=== PATIENT | female | born 1935 | race Caucasian/White ===

== ENCOUNTER 2016-09-14 20:44 | Inpatient (IN) ==
[2016-09-14] MEDS ORDERED: *HR* OxyCODONE Immed Rel 5 MG TABLET PO PRN (23:43)
[2016-09-14] MEDS ORDERED: Naloxone 0.4 MG/ML INJ IVP PRN (23:43)
[2016-09-14] MEDS ORDERED: Acetaminophen 325 MG TABLET PO PRN (23:43)
[2016-09-14] MEDS ORDERED: Ondansetron 4 MG/2 ML VIAL IVP PRN (23:43)
[2016-09-14] MEDS ORDERED: *HR* Morphine 2 MG/ML SYRINGE IVP PRN (23:43)
[2016-09-14] MEDS ORDERED: 0.9 % Sodium Chloride 1,000 ML IVC SCH (23:45)
[2016-09-14] MEDS ORDERED: Insulin LISPRO 300 UNITS/3 ML VIAL SQ SCH (23:45)
[2016-09-14] MEDS ORDERED: Dextrose Gel 15 GM PO PRN ×2 (23:54)
[2016-09-14] MEDS ORDERED: D5% in Water 1,000 ML IVC PRN (23:54)
--- NOTE | 2016-09-15 00:04 | Internal Med History&Physical ---
Date of Encounter: 09/14/16 Time of Encounter: 23:45 Assessment and Plan (1) Frail elderly Current visit: Yes Status: Acute . (2) CVA (cerebral vascular accident) Current visit: Yes Status: Acute . 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 (4) Atrial fibrillation Current visit: Yes Status: Chronic . Qualifiers: Atrial fibrillation type: paroxysmal Qualified Code(s): I48.0 - Paroxysmal atrial fibrillation (5) Hyponatremia with decreased serum osmolality Current visit: Yes Status: Acute . (6) Toxic metabolic encephalopathy Current visit: Yes Status: Acute . (7) Nutritional deficiency disorder Current visit: Yes Status: Acute . Internal Medicine - H&P: HPI Chief complaint: ? Recurrent CVA symptoms Admitted From: Emergency Dept Plans for Post Hospital Care: Home History of present illness: Ms. 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 The patient is received as a hospital transfer from [facility]-inpatient. Admitted to [facility]-inpatient on 09/01/2016 for inpatient rehabilitation status post recent ischemic cerebrovascular accident. The patient carries a long history of multiple, old bi-hemispheric infarcts with encephalomalacia. The patient seemed to progress slowly predictably during her inpatient stay and tell the last 2-3 days prior to her transfer she became less anticipatory in the rehabilitation program. Seemed more easily fatigued and weak. Seemed more hyper irritable. Inattentive. Loss of appetite. Confusion/delirium. Pending of her most recent laboratory prior to transfer it appears that on 09/02/2016 a basic metabolic panel noted a sodium of 137 and an osmolality calculated at 283. Admission comprehensive metabolic panel here finds now a sodium of 121 and a osmolality calculated 261. Additional electrolyte deficiencies and vitamin deficiencies are also noted with the intake screening laboratory with this current admission. This suggests possibly an underlying progressive nutritional disorder as well as significant shift in patient's fluid and electrolyte balance. Pulmonary impression suggest rather than a recurring CVA superimposed the patient's likely multi-infarct, chronic encephalopathy, she has experienced a progressive toxic metabolic encephalopathy and delirium as a consequence of anabolic disorder. Rule out other competing causes for patient's behavioral disturbance will be investigated. She is at risk for further acute clinical decline and morbidity given her advanced age, frailty, clinical findings and comorbid conditions. Workup and treatments will proceed comprehensibly. The patient was visited and interviewed and examined. She presents mildly encephalopathic and delirious. She is a unreliable and poor current circumstances and events. Cumulative laboratory and radiographic data base will be considered and discussed. Pertinent ancillary medical records including ECW and PCI documentation when available was reviewed and considered. Given the patient's presenting concerns, past medical history, clinical findings and symptoms, she is admitted at this time will undergo further evaluation and disposition. Orders were written as per the computerized physician food order expediter system.......................................................................... .................... Consultative opinions will be sought as clinical circumstances justify. Pain management needs will be addressed. Laboratory+radiographic data base will be updated as appropriate. Studies include: Cultures of blood and urine and sputum, random urineassays, pt/inr, aptt, ddimer,cpk, prolactin, cardiac injury panel, BNP, metabolic and hematologic panel, magnesium, phosphorus, ionized calcium, thyroid panel ,lipid profile, A1c, C-peptide, CRP, sedimentation rate, respiratory infection profile , respiratory virus panel, cortisol, blood gas, B12, folate, iron studies, lactic acid, serologies, etc. Precautions: Aspiration, fall, seizure, delirium protocol/surveillance initiated. Orthostatic vital signs. Telemetry with continuous hemodynamic monitoring and pulse oximetry initiated. Empiric antibiotic coverage: pending diagnostic/culture data. Special studies: CT chest, MRI head/brain, carotid US, chest x-ray, telemetry, EKG, 2D echo. Bladder scan postvoid residual. Pulmonary toilet: Incentive spirometry. PRN aerosol bronchodilator, mucolytic, antitussive. PRN supplemental oxygen. Corticosteroid therapy PRN. CPAP/BiPAP supplemental oxygen delivery employed PRN. Aerosol Mucomyst therapy may be employed PRN. Fluid and electrolyte repletion efforts will proceed. Careful attention to fluid balance and renal recovery will be emphasized. Avoidance of nephrotoxic exposure and adverse drug drug interaction in the setting of impaired renal function will be monitored closely. Apparent, rapidly progressive hyponatremia to be addressed with diligent surveillance/ empiric protocols to include: 8258-0679 mLs total fluid (i.e., free water) restriction per 24hrs. Gentle rehydration therapy with normal saline initiated. Acute coronary syndrome protocol/surveillance initiated. Acute BEHAVIORAL INTERVENTION SPECIALIST injury protocol/surveillance initiated. DVT and PUD prophylaxis initiated: PPI therapy, intermittent pneumatic cuffs/ TEDs. Early ambulation will be encouraged. Chronic anticoagulation therapy with warfarin. Continue per pharmacy protocol/ surveillance. Goal INR 2-3. Immunization updates recommended. Influenza and pneumococcal vaccinations as part of ongoing preventative healthcare recommendations strongly recommended. Smoking cessation counseling addressed. It is currently unknown if patient is a smoker. This issue will be further investigated as circumstances permit. Advanced care directive discussion addressed. Patient does not declare any healthcare restrictions at this time as per available medical record reviews.. Cardiovascular risk appraisal and cardiovascular risk reduction efforts will be emphasized. Physical+occupational therapy consulted to evaluate patient's functional capacity and progressive mobility as her circumstances permit. Sliding scale insulin coverage, ADA dietary restraint and schedule an as-needed basis fingerstick glucose assessments were initiated. Nutrition/diabetes education counseling may be considered as circumstances justify. Outpatient medication schedules will be reviewed, confirmed and facilitated as appropriate. Reconciliation of home treatments including adjustments, substitutions and reintroduction into the treatment regimen will address necessary maintenance therapies for chronic pre-existing medical conditions. Plan of care has been reviewed and discussed in detail with the patient's caregivers. Questions addressed. Hospital course will be dependent upon clinical findings, treatment response and /or potential consultative interventions. Patient is at risk for further acute clinical decline-morbidity due to her advanced age/frailty, presenting chief complaints and comorbid conditions. Condition is serious. Prognosis is guarded. CODE STATUS is reported as full. Past Med Surg Social Fam HX - Past Medical History Source: old records reviewed Medical history: arthritis, atrial fibrillation, cardiomyopathy, CHF, CVA, diabetes, GERD, hyperlipidemia, hypertension, osteoporosis, peripheral artery disease, thyroid disease, TIA, other Psychiatric history: no psych history, other - Past Surgical History Surgical History: non-contributory, other - Social History Smoking Status: Never smoker Alcohol use: none, unknown Drug use: none, unknown Occupational status: unemployed, retired Activity Level: Independent ambulation, Mostly sedentary Recent Out of Country Travel Within the Last 8 Weeks: No Exposure or Possible Exposure to Illness During Travel: No Internal Medicine - H&P: Meds Aspirin [Ecotrin] 325 mg PO DAILY 09/01/16 [History] Bisacodyl [Woman's Laxative] 5 mg PO DAILY 09/01/16 [History] Carvedilol [Coreg] 6.25 mg PO BIDWM 09/01/16 [History] GlipiZIDE [Glipizide] 10 mg PO DAILY 09/01/16 [History] Insulin Glargine [Lantus] 20 units SQ 1630 09/01/16 [History] Levothyroxine [Synthroid] 0.1 mg PO DAILY 09/01/16 [History] Pravastatin Sodium [Pravachol] 40 mg PO HS 09/01/16 [History] Warfarin [Coumadin] 2.5 mg PO DAILY 09/01/16 [History] Allergies pcn Allergy (Unknown, Uncoded 09/01/16 13:14) Rash ROS unobtainable: due to mental status All Systems PM: A 10-system review of systems was performed and is negative for pertinent findings except as documented above in the HPI. Patient presents mildly encephalopathic. Delirious. Sitting for a degree of sundowning with restlessness. She is very limited historian of current circumstances and events. Details are collected from medical records, report by attending staff and family members. - Constitutional Constitutional: as per HPI - EENT Eyes: as per HPI Ears: as per HPI Nose, mouth and throat: as per HPI - Breasts Breasts: as per HPI - Cardiovascular Cardiovascular ROS IM: as per HPI - Respiratory Respiratory: as per HPI - Gastrointestinal Gastrointestinal: as per HPI - Genitourinary Genitourinary: as per HPI - Musculoskeletal Musculoskeletal ROS IM: as per HPI - Integumentary Integumentary IM: as per HPI - Neurological Neurological ROS: as per HPI - Endocrine Endocrine IM: as per HPI - Hematologic/Lymphatic Hematologic/Lymphatic: as per HPI - Allergic/Immunologic Allergic/Immunologic: as per HPI - Constitutional Vitals: Temp Pulse Resp BP Pulse Ox 98.3 F 85 20 175/105 100 09/14/16 23:07 09/14/16 23:07 09/14/16 23:07 09/14/16 23:07 09/14/16 23:07 Vital Signs Temp Pulse Resp BP Pulse Ox 09/14/16 23:07 98.3 F 85 20 175/105 100 Intake and Output 09/14/16 09/14/16 09/15/16 15:59 23:59 07:59 Other: Weight 65 kg Blood Glucose* 257 Vital Signs Temp Pulse Resp BP Pulse Ox 09/15/16 04:21 98.4 F 66 15 155/79 99 09/14/16 23:07 98.3 F 85 20 175/105 100 Intake and Output 09/14/16 09/14/16 09/15/16 15:59 23:59 07:59 Output Total 400 / 400 Balance -400 / -400 Output: Urine 400 / 400 Other: Weight 65 kg 65 kg Blood Glucose* 257 257 Patient Weight 09/15/16 23:59 Weight 65 kg General appearance: Present: cachectic, cooperative, A&O X 2, no acute distress , answers questions appropriately - Head Head exam: Present: atraumatic, normocephalic - Eye Eye exam: Present: EOMI, PERRL, conjuntiva pink, sclera anicteric Pupils: Present: normal accommodation, PERRL - ENT ENT exam: Present: mucous membranes moist, normal external ear exam, normal oropharynx - Neck Neck exam general surgery: Present: full ROM, supple, trachea midline. Absent: lymphadenopathy, nuchal rigidity - Respiratory Respiratory exam: Present: decreased breath sounds, CTAB. Absent: accessory muscle use, rales, rhonchi, wheezes - Cardiovascular Cardiovascular exam: Present: distant heart sounds, RRR, +S1, +S2. Absent: diastolic murmur, gallop, rubs, systolic murmur - GI/Abdominal GI/Abdominal exam: Present: normal bowel sounds, soft, no peritoneal signs. Absent: distended, tenderness - Extremities Exam Extremities exam: Present: full ROM, warm, radial pulses palpable and symetrical. Absent: calf tenderness, cyanotic, pedal edema - Neurological Exam Neurological exam: Present: alert, altered, CN II-XII intact, oriented X3, no focal deficits. Absent: pronater drift, facial droop, speech deficit - Expanded Neurological Exam Neurological exam expanded: Present: inattentive, protecting the airway. Absent : ataxia, expressive aphasia, receptive aphasia, tremor Patient oriented to: Present: person, place. Absent: time Speech: Present: garbled Coma Scale Eye Opening: To Voice Coma Scale Motor Response: Obeys Commands Coma Scale Verbal Response: Confused Coma Scale Total: 13 - Psychiatric Psychiatric exam: Present: depressed, normal affect - Skin Skin exam: Present: dry, intact, pallor, warm. Absent: petechiae, rash, urticaria, vesicles Internal Med - H&P Results - Labs CBC & Chem 7: 09/15/16 00:27 09/15/16 00:27 Labs: Short CBC 09/15/16 Range/Units 00:27 WBC 9.8 (4.3-11.1) K/mcL Hgb 12.1 (11.5-15.4) g/dL Hct 34.0 L (35.3-44.9) % Plt Count 344 (140-400) K/mcL Neutrophils # 8.1 (1.6-8.9) K/mcL BMP 09/15/16 Range/Units 00:27 Sodium 121 L (136-145) mEq/L Potassium 2.6 L (3.5-4.5) mEq/L Chloride 82 L (98-109) mEq/L Carbon Dioxide 28 (19-29) mEq/L BUN 17 (7-20) mg/dL Creatinine 0.80 (0.57-1.11) mg/dL Glucose 227 H (70-99) mg/dL Calcium 8.9 (8.6-10.8) mg/dL Cardiac Enzymes 09/15/16 Range/Units 00:27 Troponin I 0.03 (0-0.03) ng/mL Liver Function 09/15/16 Range/Units 00:27 Total Bilirubin 1.4 H (0.2-1.2) mg/dL AST 40 H (5-34) Units/L ALT 59 H (0-55) Units/L Alkaline Phosphatase 82 (38-126) Units/L Albumin 3.6 (3.5-5.0) g/dL Urine 09/15/16 Range/Units 00:37 Urine Color Yellow (Yellow) Urine Clarity Clear (Clear) Urine pH 6.0 (5.0-8.0) pH Units Ur Specific Ross 1.014 (1.010-1.025) Urine Protein 30 H (Neg-Trace) mg/dL Urine Glucose (UA) 250 H (Normal) mg/dL Abnormal lab results Hct 34.0 % (35.3-44.9) L 09/15/16 00: MCV 79.6 fL (83.0-100.0) L 09/15/16: MCHC 35.6 g/dL (31.6-35.5) H 09/15/16: ESR 44 mm/hr (0-15) H 09/15/16: PT 34.6 Seconds (9.4-12.1) H 09/15/16: APTT 48.9 Seconds (26.0-36.0) H 09/15/16: VBG pH 7.53 pH Units (7.32-7.42) H 09/15/16: VBG pCO2 36 mmHg (41-51) L 09/15/16: VBG pO2 141 mmHg (25-40) H 09/15/16 00: VBG HCO3 30.1 mEq/L (21-27) H 09/15/16: Sodium 121 mEq/L (136-145) L 09/15/16: Potassium 2.6 mEq/L (3.5-4.5) L 09/15/16: Chloride 82 mEq/L (98-109) L 09/15/16: Glucose 227 mg/dL (70-99) H 09/15/16 00: Calculated Osmolality 261 (280-300) L 09/15/16: Magnesium 1.3 mg/dL (1.6-2.6) L 09/15/16: Total Bilirubin 1.4 mg/dL (0.2-1.2) H 09/15/16: AST 40 Units/L (5-34) H 09/15/16: ALT 59 Units/L (0-55) H 09/15/16: Globulin 3.7 g/dL (2.4-3.5) H 09/15/16 00:27 Albumin/Globulin Ratio 1.0 (1.1-2.2) L 09/15/16 00:27 Folate 6.1 ng/mL (7.0-31.4) L 09/15/16 00:27 TSH 0.178 mcIU/mL (0.350-4.840) L 09/15/16 00:27 Urine Protein 30 mg/dL (Neg-Trace) H 09/15/16 00:37 Urine Glucose (UA) 250 mg/dL (Normal) H 09/15/16 00:37 Urine Blood Trace (Negative) H 09/15/16 00:37 Laboratory Results WBC 9.8 K/mcL (4.3-11.1) 09/15/16 00: RBC 4.27 M/mcL (3.82-4.97) 09/15/16 00: Hgb 12.1 g/dL (11.5-15.4) 09/15/16 00: Hct 34.0 % (35.3-44.9) L 09/15/16 00: MCV 79.6 fL (83.0-100.0) L 09/15/16 00:27 MCH 28.3 pg (28.0-33.3) 09/15/16 00: MCHC 35.6 g/dL (31.6-35.5) H 09/15/16 00:27 RDW 13.0 % (11.5-14.5) 09/15/16 00:27 Plt Count 344 K/mcL (140-400) 09/15/16 00: MPV 9.7 fL (9.4-12.4) 09/15/16 00:27 Immature Gran % 0.6 % (0-4) 09/15/16 00:27 Seg Neutrophils % 82.6 % 09/15/16 00:27 Lymphocytes % 9.3 % 09/15/16 00:27 Monocytes % 7.5 % 09/15/16 00: Eosinophils % 0.0 % 09/15/16 00: Basophils % 0.0 % 09/15/16 00:27 Neutrophils # 8.1 K/mcL (1.6-8.9) 09/15/16 00: Lymphocytes # 0.9 K/mcL (0.6-4.6) 09/15/16 00: Monocytes # 0.7 K/mcL (0.0-1.3) 09/15/16 00: Eosinophils # 0.0 K/mcL (0.0-0.6) 09/15/16: Basophils # 0.0 K/mcL (0.0-0.2) 09/15/16 00: ESR 44 mm/hr (0-15) H 09/15/16: PT 34.6 Seconds (9.4-12.1) H 09/15/16 00: INR 3.1 09/15/16: APTT 48.9 Seconds (26.0-36.0) H 09/15/16: VBG pH 7.53 pH Units (7.32-7.42) H 09/15/16: VBG pCO2 36 mmHg (41-51) L 09/15/16: VBG pO2 141 mmHg (25-40) H 09/15/16: VBG HCO3 30.1 mEq/L (21-27) H 09/15/16: Sodium 121 mEq/L (136-145) L 09/15/16: Potassium 2.6 mEq/L (3.5-4.5) L 09/15/16: Chloride 82 mEq/L (98-109) L 09/15/16: Carbon Dioxide 28 mEq/L (19-29) 09/15/16 00: BUN 17 mg/dL (7-20) 09/15/16: Creatinine 0.80 mg/dL (0.57-1.11) 09/15/16 00: Est GFR ( Amer) > 60 (> 60) 09/15/16 00: Est GFR (Non-Af Amer) > 60 (> 60) 09/15/16: BUN/Creatinine Ratio 21 (6-26) 09/15/16: Glucose 227 mg/dL (70-99) H 09/15/16 00: Calculated Osmolality 261 (280-300) L 09/15/16: Lactic Acid 1.1 mmol/L (0.5-2.2) 09/15/16: Calcium 8.9 mg/dL (8.6-10.8) 09/15/16 00: Phosphorus 2.9 mg/dL (2.3-4.7) 09/15/16: Magnesium 1.3 mg/dL (1.6-2.6) L 09/15/16: Total Bilirubin 1.4 mg/dL (0.2-1.2) H 09/15/16: AST 40 Units/L (5-34) H 09/15/16: ALT 59 Units/L (0-55) H 09/15/16: Alkaline Phosphatase 82 Units/L (38-126) 09/15/16: Lactate Dehydrogenase 278 Units/L (159-327) 09/15/16: Creatine Kinase 49 Units/L (29-168) 09/15/16: Troponin I 0.03 ng/mL (0-0.03) 09/15/16: C-Reactive Protein 1 mg/L (Less than 5) 09/15/16: Serum Total Protein 7.3 g/dL (6.0-8.3) 09/15/16: Albumin 3.6 g/dL (3.5-5.0) 09/15/16: Globulin 3.7 g/dL (2.4-3.5) H 09/15/16: Albumin/Globulin Ratio 1.0 (1.1-2.2) L 09/15/16: Triglycerides 73 mg/dL (< 150) 09/15/16: Cholesterol 154 mg/dL (< 200) 09/15/16: LDL Cholesterol, Calc 81 mg/dL (0-99) 09/15/16: VLDL Cholesterol, Calc 15 mg/dL (< 31) 09/15/16: HDL Cholesterol 58 mg/dL (40-59) 09/15/16: Cholesterol/HDL Ratio 2.7 (0-4.9) 09/15/16: Vitamin B12 344 pg/mL (213-816) 09/15/16: Folate 6.1 ng/mL (7.0-31.4) L 09/15/16: TSH 0.178 mcIU/mL (0.350-4.840) L 09/15/16 00: Free T4 1.35 ng/dl (0.70-1.48) 09/15/16 00: Free T3 1.79 pg/mL (1.71-3.71) 09/15/16 00: Prolactin 11.45 ng/mL (5.18-26.53) 09/15/16 00: Urine Color Yellow (Yellow) 09/15/16 00: Urine Clarity Clear (Clear) 09/15/16 00: Urine pH 6.0 pH Units (5.0-8.0) 09/15/16 00: Ur Specific Ross 1.014 (1.010-1.025) 09/15/16 00: Urine Protein 30 mg/dL (Neg-Trace) H 09/15/16 00: Urine Glucose (UA) 250 mg/dL (Normal) H 09/15/16 00: Urine Ketones Negative mg/dL (Negative) 09/15/16 00: Urine Blood Trace (Negative) H 09/15/16 00: Urine Nitrite Negative (Negative) 09/15/16 00: Urine Bilirubin Negative (Negative) 09/15/16 00: Urine Urobilinogen Normal mg/dL (Normal) 09/15/16 00: Ur Leukocyte Esterase Negative (Negative) 09/15/16 00:37 Urine Microscopic RBC 0-3 per hpf (0-3) 09/15/16 00:37 Urine Microscopic WBC 0-3 per hpf (0-3) 09/15/16 00:37 Ur Squamous Epith Cells Few per lpf (None-Few) 09/15/16 00: Urine Bacteria None Seen per hpf (None-Few) 09/15/16 00: Hyaline Casts None Seen per lpf (None-Few) 09/15/16 00:37
[2016-09-15 00:35] LABS: Hemoglobin 12.1 g/dL (11.5-15.4); Immature Granulocytes % 0.6 % (0-4); Lymphocytes # 0.9 K/mcL (0.6-4.6); Lymphocytes % 9.3 %; Mean Corpuscular HGB Conc 35.6 g/dL (31.6-35.5); Mean Corpuscular Hemoglobin 28.3 pg (28.0-33.3); Mean Corpuscular Volume 79.6 fL (83.0-100.0); Mean Platelet Volume 9.7 fL (9.4-12.4); Monocytes # 0.7 K/mcL (0.0-1.3); Monocytes % 7.5 %; Neutrophils # 8.1 K/mcL (1.6-8.9); Platelet Count 344 K/mcL (140-400); Red Blood Count 4.27 M/mcL (3.82-4.97); Segmented Neutrophils % 82.6 %
[2016-09-15 00:41] LABS: INR 3.1; Prothrombin Time 34.6 Seconds (9.4-12.1)
[2016-09-15 00:44] LABS: Activated Partial Thrombo Time 48.9 Seconds (26.0-36.0)
[2016-09-15 00:46] LABS: Bilirubin,Urine Negative (Negative); Blood,Urine Trace (Negative); Clarity,Urine Clear (Clear); Color,Urine Yellow (Yellow); Glucose,Urine (UA) 250 mg/dL (Normal); Ketones,Urine Negative (Negative); Leukocyte Esterase,Urine Negative (Negative); Nitrite,Urine Negative (Negative); Protein,Urine 30 mg/dL (Neg-Trace); Specific Gravity,Urine 1.014 (1.010-1.025); Urobilinogen,Urine Normal (Normal)
[2016-09-15 00:46] LABS: VBG HCO3 30.1 mEq/L (21-27); VBG PH 7.53 pH Units (7.32-7.42)
[2016-09-15 00:49] LABS: Bacteria,Urine None Seen per hpf (None-Few); Hyaline Casts,Urine None Seen per lpf (None-Few); RBC,Urine 0-3 per hpf (0-3); Squamous Epithelial Cell,Urine Few per lpf (None-Few); WBC,Urine 0-3 per hpf (0-3)
[2016-09-15 00:50] LABS: Alanine Aminotransferase 59 Units/L (0-55); Albumin 3.6 g/dL (3.5-5.0); Alkaline Phosphatase 82 Units/L (38-126); Aspartate Amino Transferase 40 Units/L (5-34); BUN/Creatinine Ratio 21 (6-26); Bilirubin,Total 1.4 mg/dL (0.2-1.2); Blood Urea Nitrogen 17 mg/dL (7-20); Calcium 8.9 mg/dL (8.6-10.8); Carbon Dioxide 28 mEq/L (19-29); Chloride 82 mEq/L (98-109); Chol/HDL Ratio 2.7 (0-4.9); Globulin 3.7 g/dL (2.4-3.5); Glucose 227 mg/dL (70-99); Magnesium 1.3 mg/dL (1.6-2.6); Osmolality,Calculated 261 (280-300); Phosphorous 2.9 mg/dL (2.3-4.7); Potassium 2.6 mEq/L (3.5-4.5); Sodium 121 mEq/L (136-145); Total Protein 7.3 g/dL (6.0-8.3); eGFR For African Americans > 60 (> 60); eGFR For Non-African Americans > 60 (> 60)
[2016-09-15 01:12] LABS: Thyroid Stimulating Hormone 0.178 mcIU/mL (0.350-4.840); Triiodothyronine (T3) Free 1.79 pg/mL (1.71-3.71)
[2016-09-15 01:28] LABS: Prolactin 11.45 ng/mL (5.18-26.53)
[2016-09-15 01:34] LABS: Folate 6.1 ng/mL (7.0-31.4)
[2016-09-15] MEDS ORDERED: Magnesium Sulfate 2 GM in D5% in Water 100 ML IVPB ONE (01:36)
[2016-09-15] MEDS ORDERED: Potassium Chloride 40 MEQ, Lidocaine 1% 2 ML in D5% in Water 500 ML IVPB ONE (01:36)
[2016-09-15] MEDS ORDERED: Potassium Chloride Elixir 20 MEQ/15 ML UDC PO ONE (01:38)
[2016-09-15] MEDS ORDERED: *HR* LORazepam 2 MG/ML VIAL IVP PRN (05:46)
[2016-09-15] MEDS ORDERED: 0.9 % Sodium Chloride 1,000 ML IVC SCH (05:52)
[2016-09-15] MEDS ORDERED: 0.9 % Sodium Chloride 250 ML IVC STA (05:52)
[2016-09-15 06:19] LABS: % Iron Saturation 10 % (15-50); Iron 40 mcg/dL (50-170); Transferrin 285 mg/dL (180-382)
[2016-09-15] MEDS: Insulin LISPRO 300 UNITS/3 ML VIAL SQ SCH ×5 (07:50→23:36)
[2016-09-15] MEDS: Aspirin Enteric Coated 325 MG Tablet PO SCH (07:51)
[2016-09-15] MEDS: Folic Acid 1 MG TABLET PO SCH (07:51)
[2016-09-15] MEDS: Thiamine (B-1) 100 MG TABLET PO SCH (07:52)
[2016-09-15] MEDS: Vitamin B Complex/Vit C/Vit E 1 EACH TABLET PO SCH (07:52)
[2016-09-15] MEDS ORDERED: Lisinopril 20 MG TABLET PO ONE (12:00)
[2016-09-15] MEDS ORDERED: *HR* FentaNYL (PF) 100 MCG/2 ML VIAL ONE (13:54)
--- NOTE | 2016-09-15 14:56 | ECHO - Doppler Report ---
Echo with Saline Contrast Name: Gaye Garcia Date of Study: 09/15/2016 Date: 1935 Ht: 64.0 in Medical Record#: [id number] Age: 81 Wt: 143.0 lb Gender: Female BSA: 1.7 Order #: [id number] Location: [facility] Room #: [id number] Reading Physician: Juve Byers MD, [facility] Divinity Teacher: Zenaida Yang RVT, [facility] Ordering Physician: Alejandro Soto MD Primary Physician: Madeline Ballard MD Indications: CVA, AMS Impressions: Normal LV systolic function, LVEF 55-60%. Mild concentric left ventricular hypertrophy. Indeterminate diastolic function due to atrial fibrillation. Normal right ventricular size and function. Mildly dilated left atrium. Mildly dilated right atrium. No evidence of intracardiac shunting with agitated saline contrast. Moderately calcified mitral valve annulus and subvalvular apparatus. Mildly thickened mitral valve leaflets. There is restricted motion of the posterior mitral valve leaflet. Moderate-severe mitral regurgitation. Mild aortic stenosis. Mild-moderate aortic regurgitation. Moderate tricuspid regurgitation. Severe pulmonary hypertension. Estimated RVSP = 60 mmHg. Left Ventricular Wall Motion: Rest Echo Findings All wall segments showed normal motion. Findings: Study Quality * Technically sub-optimal due to poor parasternal windows. ECG Findings * Atrial fibrillation. Left Ventricle * Normal LV systolic function, LVEF 55-60%. * Normal LV chamber size. * Mild concentric left ventricular hypertrophy. * Indeterminate diastolic function due to atrial fibrillation. Right Ventricle * Normal right ventricular size and function. Left Atrium * Mildly dilated left atrium. Right Atrium * Mildly dilated right atrium. Interatrial Septum * No evidence of intracardiac shunting with agitated saline contrast. Aorta * Normally sized aortic root. Pericardium * There is no pericardial effusion present. IVC * Normal IVC dimensions and inspiratory collapse. Aortic Valve * Aortic valve not well visualized. * Mild aortic stenosis. * Mild-moderate aortic regurgitation. Mitral Valve * Moderately calcified mitral valve annulus and subvalvular apparatus. Mildly thickened mitral valve leaflets. * There is restricted motion of the posterior mitral valve leaflet. * No mitral stenosis. * Moderate-severe mitral regurgitation. Tricuspid Valve * Normal tricuspid valve structure. * No tricuspid stenosis. * Moderate tricuspid regurgitation. * Severe pulmonary hypertension. Estimated RVSP = 60 mmHg. Pulmonic Valve * Pulmonic valve not well visualized. * No pulmonic stenosis. * Trace pulmonic regurgitation. History Hypertension Diabetes Hypercholesteremia Congestive Heart Failure Contrast: Agitated saline 20 ml. Measurements: BP: 155/ 79 2D Normal Values RVIDd: 2.70 cm IVSd: 1.30 cm 0.6 - 1.0 cm LVIDd: 3.50 cm 3.7 - 5.6 cm LVPWd: 1.30 cm 0.6 - 1.1 cm LVIDs: 2.60 cm 1.5 - 3.6 cm AO: 2.90 cm < 4.0 cm %FS: 25.70 cm >25 % LVOT Diam: 2.00 cm LA volume: 58 Aortic Valve Peak Raymundo:2.15 m/sec Peak Grad:18.00 mmHg Mean Grad:9.00 mmHg Tricuspid Valve TV Regurg Peak Grad: 57.00mmHg TV Regurg Peak Raymundo: 3.78m/sec Updated by Juve Byers MD, [facility] on 09/15/2016 2:47:06 PM electronically signed on 09/15/2016 2:49:23 PM with status of Final Wall Motion Miranda: 1=Normal, 2=Hypokinesis, 3=Akinesis, 4=Dyskinesis, 5=Aneurysmal, 6=Hyperkinetic, X=Not Visualized (Blank)=Missing
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
--- NOTE | 2016-09-15 15:51 | Pulmonology Consult Note ---
Date of Encounter: 09/15/16 Time of Encounter: 15:49 Assessment and Plan (1) Acute respiratory failure with hypoxia Current Visit: Yes Status: Acute Acute respiratory failure with hypoxia in this individual with recent stroke and altered declining mental status may very well be related to aspiration event. Respiratory failure may also be manifestation of cardiac dysfunction in this elderly individual with atrial fibrillation and multi-valvular dysfunction. Nonetheless, the patient will be maintained on ventilatory support. Cultures of the sputum will be obtained. An echocardiogram is pending for further cardiac evaluation. DVT and ulcer prophylaxis will be provided to the patient. Sedation in order to facilitate mechanical ventilation and minimize ventilator dyssynchrony will also be provided. Code(s): J96.01 - Acute respiratory failure with hypoxia SNOMED Code(s): 48785263, 226504847 History of Present Illness Consult date: 09/15/16 Chief complaint: Acute respiratory failure with hypoxia History of present illness: 81-year-old female recent stroke and multiple other comorbidities as outlined in the admission H&P. The patient developed a precipitous decline of her respiratory status while undergoing care on monitored floor. According to nursing staff, this seemingly occurred during the family's attempt to force feed this patient. Of note, this individual has had a extensive prior recent stroke was admitted with altered mental status. I was called to the floor to assist with intubation, please see my procedure note. I am unable to obtain a review of systems from the patient light of her clinical status. Past Med Surg Social Fam HX - Past Medical History Medical history: arthritis, atrial fibrillation, cardiomyopathy, CHF, CVA, diabetes, GERD, hyperlipidemia, hypertension, osteoporosis, peripheral artery disease, thyroid disease, TIA, other Psychiatric history: no psych history, other - Past Surgical History Surgical History: non-contributory, other - Social History Smoking Status: Never smoker Alcohol use: none, unknown Drug use: none, unknown Medications and Allergies Aspirin [Ecotrin] 325 mg PO DAILY 09/01/16 [History] Bisacodyl [Woman's Laxative] 5 mg PO DAILY 09/01/16 [History] Carvedilol [Coreg] 6.25 mg PO BID 09/01/16 [History] GlipiZIDE [Glipizide] 10 mg PO DAILY 09/01/16 [History] Insulin Glargine [Lantus] 32 units SQ DAILY 09/01/16 [History] Pravastatin Sodium [Pravachol] 40 mg PO HS 09/01/16 [History] Warfarin [Coumadin] 2.5 mg PO DAILY 09/01/16 [History] Amlodipine Besylate [Amlodipine Besylate] 10 mg PO DAILY 09/15/16 [History] Furosemide [Lasix] 20 mg PO AD PRN 09/15/16 [History] Insulin ASPART [Novolog Flexpen] 2 - 8 unit SQ TIDWM 09/15/16 [History] Levothyroxine [Synthroid] 100 mcg PO DAILY 09/15/16 [History] Allergies Penicillins Allergy (Verified 09/15/16 12:22) Rash ROS unobtainable: due to endotracheal tube All Systems: A 10-system review of systems was performed and is negative for pertinent findings except as documented above in the HPI. Physical Examination Vital Signs: Vital Signs, Last 4 Hours Temp Pulse Resp BP Pulse Ox 09/15/16 15:09 142 28 209/108 90 09/15/16 15:00 81 12 137/72 100 09/15/16 14:45 12 155/65 100 09/15/16 14:30 93.5 F L 81 12 147/93 100 General appearance: other (Elderly female sedated vomitus noted within the oral pharynx) Eyes: nonicteric ENT: oropharynx moist, other (Vomitus and blood within the oropharynx poor dental repair) Neck: JVD Effort: mildly labored Inspection: kyphosis Auscultation: bilateral: diminished breath sounds (Coarse breath sounds bilaterally) Cardiovascular: irregular rhythm, murmur noted (Systolic murmur over the base of the heart and aortic region) Gastrointestinal: normoactive bowel sounds, absent bowel sounds, non-distended Extremities: no cyanosis, edema (Mild edema intact pulses warm extremities) Musculoskeletal: no deformities (Osteoarthritic deformities of hands and knees) unable to assess due to mental status Ventilator Settings Ventilator Settings: Ventilator Settings, Last 8 Hours Ventilator Mode A/C Ventilator Mode A/C Ventilator Mode A/C Ventilator Tidal Volume 500 Setting Ventilator Tidal Volume 500 Setting Ventilator Tidal Volume 500 Setting Ventilator Respiratory Rate 12 Setting Ventilator Respiratory Rate 12 Setting Ventilator Respiratory Rate 12 Setting Actual Respiratory Rate 12 Actual Respiratory Rate 12 Actual Respiratory Rate 12 Positive End Expiratory 5 Pressure Positive End Expiratory 5 Pressure Positive End Expiratory 5 Pressure Peak Inspiratory Airway 26 Pressure Peak Inspiratory Airway 26 Pressure Peak Inspiratory Airway 24 Pressure Results - Laboratory Findings CBC and BMP: 09/15/16 00:27 09/15/16 00:27 PT/INR, D-dimer PT 34.6 Seconds (9.4-12.1) H 09/15/16 00:27 Abnormal lab findings: Abnormal lab results Hct 34.0 % (35.3-44.9) L 09/15/16 00:27 MCV 79.6 fL (83.0-100.0) L 09/15/16 00: MCHC 35.6 g/dL (31.6-35.5) H 09/15/16 00: ESR 44 mm/hr (0-15) H 09/15/16 00: PT 34.6 Seconds (9.4-12.1) H 09/15/16 00: APTT 48.9 Seconds (26.0-36.0) H 09/15/16 00: VBG pH 7.53 pH Units (7.32-7.42) H 09/15/16 00: VBG pCO2 36 mmHg (41-51) L 09/15/16 00: VBG pO2 141 mmHg (25-40) H 09/15/16 00:27 VBG HCO3 30.1 mEq/L (21-27) H 09/15/16 00:27 Sodium 121 mEq/L (136-145) L 09/15/16 00:27 Potassium 2.6 mEq/L (3.5-4.5) L 09/15/16 00: Chloride 82 mEq/L (98-109) L 09/15/16 00:27 Glucose 227 mg/dL (70-99) H 09/15/16 00:27 POC Glucose 206 (58-89) H 09/15/16 11:59 Serum Osmolality 261 mOsm/kg (280-300) L 09/15/16 06:03 Calculated Osmolality 261 (280-300) L 09/15/16 00:27 Magnesium 1.3 mg/dL (1.6-2.6) L 09/15/16 00:27 Iron 40 mcg/dL (50-170) L 09/15/16 05:56 % Saturation 10 % (15-50) L 09/15/16 05:56 Total Bilirubin 1.4 mg/dL (0.2-1.2) H 09/15/16 00:27 AST 40 Units/L (5-34) H 09/15/16 00:27 ALT 59 Units/L (0-55) H 09/15/16 00:27 Globulin 3.7 g/dL (2.4-3.5) H 09/15/16 00:27 Albumin/Globulin Ratio 1.0 (1.1-2.2) L 09/15/16 00:27 Folate 6.1 ng/mL (7.0-31.4) L 09/15/16 00:27 TSH 0.178 mcIU/mL (0.350-4.840) L 09/15/16 00:27 Urine Protein 30 mg/dL (Neg-Trace) H 09/15/16 00:37 Urine Glucose (UA) 250 mg/dL (Normal) H 09/15/16 00:37 Urine Blood Trace (Negative) H 09/15/16 00:37 - Clinical Findings Intake & Output: Intake & Output 09/14/16 09/15/16 09/15/16 23:59 07:59 15:59 Intake Total 240 / 240 Output Total 400 / 400 0 / 0 Balance -400 / -400 240 / 240 Weight 65 kg 65 kg Consult Discharge Plan - Plan Referrals: Madeline Ballard MD [Primary Care Provider] -
--- NOTE | 2016-09-15 16:06 | Event Note ---
<Mustapha Romero - Last Filed: 09/15/16 15:58> Date of Encounter: 09/15/16 Time of Encounter: 15:58 Rapid response was called at 1:44 PM. I arrived to the room shortly thereafter. The patient was in obvious respiratory distress. She had scaphoiding of the abdomen. She had accessory muscle use and was confused pulling off the venti mask. Additionally the patient had sinus tachycardia on the monitor with rates of 130s to 140s. Blood pressure reading at this time was quite high with a Systolic blood pressure of 206. We placed the patient on 100% O2 with a non rebreather mask. She had very course lungs sounds bilaterally with very poor airflow. Trachea was midline. We decided that it would be best to intubate her in the room as there was concern for her developing cardiac arrest from respiratory failure. We bagged the patient and were able to bring her O2 saturation up to 100%. Her Heart rate also slowed considerably to 100-110s. we proceed with intubation. Please see procedure note for details. Patient was transferred to the ICU and placed on a ventilator. Family was updated. we have consulted the Critical care team. given her exam finding I think It is highly suspicious for aspiration. May also consider flash pulmonary edema. A post intubation CXR has been ordered and is pending. We apprciate Dr. Bob Assistance with this patient. <Rome Domínguez - Last Filed: 09/15/16 17:47> Date of Encounter: 09/15/16 I examined this patient and my medical decision-making was reviewed with the DIRECTOR OF RESPIRATORY THERAPY/PA/Advanced Practice Nurse/Resident Physician. I agree with the documented findings, disposition and treatment plan as described except to the extent set forth below.
--- NOTE | 2016-09-15 16:17 | Event Note ---
<Mustapha Romero - Last Filed: 09/15/16 16:08> Date of Encounter: 09/15/16 Time of Encounter: 13:30 Procedure: Endotracheal intubation Date: 09/15/2016 Time: 1:30 PM Outboard Technician: Mustapha Romero D.O. Attending: Rome Blanco D.O. Indication: Acute respiratory failure The patient was placed in supine position with head of the bed roughly at 30 degrees. All equipment was checked and operational before beginning the procedure. Suction was readily available at bedside. Sedation was obtained using 5 mg of Versed, 30 g of fentanyl, 20 mg of etomidate was also later used during Francis Montes De Oca's attempt) . Patient was not paralyzed. The patient was easily ventilated using an Ambu bag. We used a 2 person technique. We were able to obtain 100% O2 saturation. The MAC3 glydescope blade was inserted by myself. The patient had a very difficult anatomy. The vocal cords were quite anterior. The best view that I could obtain during the procedure was a grade 2 view. I Was not able to pass the endotracheal tube through the cords as they were impeded by the epiglottis. One attempt was then made by Dr. Domínguez. this too was unsuccesful. The endotracheal tube still was not able to be passed. The patient was then bagged again. O2 saturations were obtained at 100% again. The patient was then put into more of a sniffing position with further extension of the neck. Dr. Blanco was then able to pass a size 7 endotracheal tube to the vocal cords on his first attempt. The stylet was removed. Colorimetric change was visualized on the CO2 meter. Breath sounds were heard in both lung brennan. There were no breath sounds auscultated over the stomach. The endotracheal tube was secured in place at 22 cm at the lip line. A chest x-ray was ordered afterwards to assess for pneumothorax and placement of the endotracheal tube. The patient tolerated the procedure well without desaturation or hemodynamic compromise. The patient was transferred to the ICU. <Rome Domínguez P - Last Filed: 09/15/16 17:48> Date of Encounter: 09/15/16 I examined this patient and my medical decision-making was reviewed with the TRANSPORT TRUCK DRIVER/PA/Advanced Practice Nurse/Resident Physician. I agree with the documented findings, disposition and treatment plan as described except to the extent set forth below.
[2016-09-15] MEDS ORDERED: NON-FORMULARY MEDICATION 1 EACH EACH (Insulin Glargine [Lantus] 20 UNITS) SQ SCH (16:30)
[2016-09-15 16:51] LABS: ABG Base Excess 5.7 mEq/L (-2.0 to 3.0); ABG Oxygen Saturation 100 % (95-98); ABG PCO2 32 mmHg (35-45); ABG PH 7.55 pH Units (7.32-7.45); ABG PO2 154 mmHg (85-104); Blood Gas FiO2 45 %
[2016-09-15] MEDS ORDERED: Warfarin perPT PO PRN (18:00)
[2016-09-15 18:20] LABS: BUN/Creatinine Ratio 22 (6-26); Blood Urea Nitrogen 16 mg/dL (7-20); Calcium 8.6 mg/dL (8.6-10.8); Carbon Dioxide 22 mEq/L (19-29); Chloride 79 mEq/L (98-109); Glucose 197 mg/dL (70-99); Magnesium 1.7 mg/dL (1.6-2.6); Osmolality,Calculated 245 (280-300); Potassium 3.5 mEq/L (3.5-4.5); eGFR For African Americans > 60 (> 60); eGFR For Non-African Americans > 60 (> 60)
[2016-09-15 18:23] LABS: Sodium 114 mEq/L (136-145)
[2016-09-15] MEDS: Insulin DETEMIR 100 UNIT/ML X5UNITS SQ SCH (19:23)
--- NOTE | 2016-09-15 21:08 | Event Note ---
<Isis Kern - Last Filed: 09/16/16 00:38> Date of Encounter: 09/16/16 Time of Encounter: 20:00 Procedure Note: Central Venous Catheter Insertion Indication: Severe hyponatremia requiring hypertonic saline and frequent lab monitoring. Attending Physician: Aleks Posadas M.D. Printed Circuit Board Preassembler: Isis Kern D.O. ; Dr. Mustapha Romero D.O. Indication: This is a 81 year-old female with severe hyponatremia with acute confusion requiring hypertonic saline and frequent lab monitoring. Consent: Detailed explanation of the procedure, treatment options, risks including but not limited to infection and bleeding, and benefits were explained to the patient's daughter Kelly Choi. A verbal informed consent was obtained from Kelly via phone. Technique: A time out was preformed identifying the correct procedure, the correct location with the nursing staff. The right neck was prepped with 2% chlorhexidine and draped with a full length sterile sheet in the usual fashion. The right internal jugular vein was accessed under ultrasound guidance with an 18 gauge thin wall needle. The guide wire was confirmed in the vein with direct US visualization. A triple lumen was inserted via the Seldinger technique. Blood was withdrawn from all lumens and flushed with normal saline. The catheter was sutured in place and a sterile dressing was applied over the site. The line was repositioned as first CXR suggests the cath tip likely in right atrium. The catheter was re-sutured in place and a sterile dressing was applied over the site. Repeated CXR confirms that the cath tip in SVC. The patient tolerated the procedure well and there were no complications. Chest x ray: First CXR suggests the cath tip likely in right atrium. Second CXR suggests the cath tip in SVC. No pneumothorax noted per radiology report. EBL: 10 cc Complication: None <Aleks Posadas - Last Filed: 09/16/16 16:28> Date of Encounter: 09/16/16 I examined this patient and determined indication for central venous catheter placement to be correct. I have been present at the bedside and available to help during the critical parts of this procedure. I agree with the documentation by the resident physician above.
[2016-09-15] MEDS: Chlorhexidine Rinse 15 ML MOUTHWASH MM SCH (21:21)
[2016-09-15 22:57] LABS: BUN/Creatinine Ratio 23 (6-26); Blood Urea Nitrogen 16 mg/dL (7-20); Calcium 8.4 mg/dL (8.6-10.8); Carbon Dioxide 28 mEq/L (19-29); Chloride 82 mEq/L (98-109); Glucose 59 mg/dL (70-99); Osmolality,Calculated 247 (280-300); eGFR For African Americans > 60 (> 60); eGFR For Non-African Americans > 60 (> 60)
[2016-09-15 23:00] LABS: Potassium 2.5 mEq/L (3.5-4.5); Sodium 119 mEq/L (136-145)
[2016-09-15] MEDS ORDERED: Sodium Phosphate 30 MMOL in D5% in Water 100 ML IVPB PRN (23:18)
[2016-09-15] MEDS ORDERED: Potassium Phosphate 44 MEQ in 0.9 % Sodium Chloride 250 ML IVPB PRN (23:18)
[2016-09-16] MEDS: Potassium Chloride 40 MEQ/200 ML BAG IVPB PRN ×3 (00:11→19:57)
[2016-09-16] MEDS: 0.9 % Sodium Chloride 1,000 ML IVC SCH ×2 (00:11→19:58)
[2016-09-16 03:14] LABS: INR 2.9; Prothrombin Time 32.6 Seconds (9.4-12.1)
[2016-09-16 03:20] LABS: Ionized Calcium 1.05 mmol/L (1.15-1.35)
[2016-09-16 03:26] LABS: Phosphorous 2.3 mg/dL (2.3-4.7)
[2016-09-16 03:27] LABS: Magnesium 1.7 mg/dL (1.6-2.6)
[2016-09-16 03:31] LABS: BUN/Creatinine Ratio 23 (6-26); Blood Urea Nitrogen 16 mg/dL (7-20); Calcium 8.3 mg/dL (8.6-10.8); Carbon Dioxide 25 mEq/L (19-29); Chloride 88 mEq/L (98-109); Glucose 74 mg/dL (70-99); Osmolality,Calculated 256 (280-300); eGFR For African Americans > 60 (> 60); eGFR For Non-African Americans > 60 (> 60)
[2016-09-16 03:33] LABS: Potassium 3.6 mEq/L (3.5-4.5); Sodium 123 mEq/L (136-145)
[2016-09-16] MEDS: Insulin LISPRO 300 UNITS/3 ML VIAL SQ SCH ×6 (03:46→23:29)
[2016-09-16 03:57] LABS: Hepatitis B Surface Antigen Nonreactive (Nonreactive)
[2016-09-16] MEDS: Magnesium Sulfate 2 GM in D5% in Water 100 ML IVPB PRN (04:33)
[2016-09-16] MEDS: Calcium Gluconate 1,000 MG in D5% in Water 100 ML IVPB PRN (04:33)
[2016-09-16 06:18] LABS: Basophils % 0.1 %; Eosinophils % 0.2 %; Hematocrit 32.8 % (35.3-44.9); Hemoglobin 11.9 g/dL (11.5-15.4); Immature Granulocytes % 0.7 % (0-4); Lymphocytes % 16.3 %; Mean Corpuscular HGB Conc 36.3 g/dL (31.6-35.5); Mean Corpuscular Hemoglobin 28.6 pg (28.0-33.3); Mean Corpuscular Volume 78.8 fL (83.0-100.0); Mean Platelet Volume 9.4 fL (9.4-12.4); Monocytes # 1.7 K/mcL (0.0-1.3); Neutrophils # 8.4 K/mcL (1.6-8.9); Platelet Count 324 K/mcL (140-400); Red Blood Count 4.16 M/mcL (3.82-4.97); Red Cell Distribution Width 13.2 % (11.5-14.5); Segmented Neutrophils % 68.7 %
[2016-09-16 06:30] LABS: BUN/Creatinine Ratio 22 (6-26); Blood Urea Nitrogen 16 mg/dL (7-20); Calcium 8.9 mg/dL (8.6-10.8); Carbon Dioxide 26 mEq/L (19-29); Chloride 89 mEq/L (98-109); Glucose 114 mg/dL (70-99); Osmolality,Calculated 258 (280-300); Potassium 3.5 mEq/L (3.5-4.5); Sodium 123 mEq/L (136-145); eGFR For African Americans > 60 (> 60); eGFR For Non-African Americans > 60 (> 60)
[2016-09-16] MEDS: Aspirin Enteric Coated 325 MG Tablet PO SCH (08:29)
[2016-09-16] MEDS: Thiamine (B-1) 100 MG TABLET PO SCH (08:38)
[2016-09-16] MEDS: Chlorhexidine Rinse 15 ML MOUTHWASH MM SCH ×2 (08:39→19:56)
[2016-09-16] MEDS: Vitamin B Complex/Vit C/Vit E 1 EACH TABLET PO SCH (08:39)
[2016-09-16] MEDS: Folic Acid 1 MG TABLET PO SCH (08:39)
[2016-09-16] MEDS ORDERED: *HR* Etomidate 40 MG/20 ML VIAL IVP ONE (09:00)
[2016-09-16] MEDS ORDERED: *HR* Midazolam HCl 5 MG/5 ML VIAL IVP ONE (09:00)
--- NOTE | 2016-09-16 10:40 | Pulmonology Progress Note ---
Date of Encounter: 09/16/16 Time of Encounter: 07:50 Assessment and Plan (1) Acute respiratory failure with hypoxia Current Visit: Yes Status: Acute Acute respiratory failure with hypoxia in this particular individual is Aleman likely due to aspiration event (aspiration pneumonitis) while while receiving enteral nutrition per discretion of family (note the patient was admitted with altered mental status, confusion and has recently suffered a significant stroke with hemiparesis). Sputum culture was requested yesterday but a sample was not yet been obtained. In the patient's clinical status, empiric antibiotics have not been initiated at this time. Breathing Trial Can Be Performed within the Next 48 Hours and Thereafter Extubation If Well-Tolerated. 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 Hyponatremia the etiology of which is uncertain is being managed by the primary service. I note that the sodium has gradually and appropriately responded to normal saline infusion at 50 mL an hour. Code(s): J96.01 - Acute respiratory failure with hypoxia SNOMED Code(s): 87562587, [id number] Subjective Principal diagnosis: Acute respiratory failure with hypoxia, aspiration pneumonitis Interval history: Patient required intubation 09/15/2016 given aspiration event on the floor. Patient remains on low level ventilatory support this morning. No acute overnight events reported. I note acceptable hemodynamic status as well as urine output. Objective PUL Vital signs: Last Vital Signs Temp 98.4 F 09/16/16 07:45 Pulse 98 09/16/16 09:00 Resp 12 09/16/16 09:00 BP 141/81 09/16/16 09:00 Pulse Ox 99 09/16/16 09:00 General appearance: other (Orally intubated sedated) Eyes: nonicteric Auscultation: bilateral: diminished breath sounds (Faint bibasilar crackles and rhonchi) Cardiovascular: irregular rhythm Gastrointestinal: normoactive bowel sounds, non-distended Extremities: no cyanosis, no edema unable to assess due to mental status Ventilator Settings Ventilator Settings: Ventilator Settings, Last 8 Hours Ventilator Mode A/C Ventilator Mode A/C Ventilator Mode A/C Ventilator Mode A/C Ventilator Mode A/C Ventilator Mode A/C Ventilator Mode A/C Ventilator Mode A/C Ventilator Mode A/C Ventilator Mode A/C Ventilator Mode A/C Ventilator Tidal Volume 500 Setting Ventilator Tidal Volume 500 Setting Ventilator Tidal Volume 500 Setting Ventilator Tidal Volume 500 Setting Ventilator Tidal Volume 500 Setting Ventilator Tidal Volume 500 Setting Ventilator Tidal Volume 500 Setting Ventilator Tidal Volume 500 Setting Ventilator Tidal Volume 500 Setting Ventilator Tidal Volume 500 Setting Ventilator Tidal Volume 500 Setting Ventilator Respiratory Rate 12 Setting Ventilator Respiratory Rate 12 Setting Ventilator Respiratory Rate 12 Setting Ventilator Respiratory Rate 12 Setting Ventilator Respiratory Rate 12 Setting Ventilator Respiratory Rate 12 Setting Ventilator Respiratory Rate 12 Setting Ventilator Respiratory Rate 12 Setting Ventilator Respiratory Rate 12 Setting Ventilator Respiratory Rate 12 Setting Ventilator Respiratory Rate 12 Setting Actual Respiratory Rate 12 Actual Respiratory Rate 12 Actual Respiratory Rate 12 Actual Respiratory Rate 12 Actual Respiratory Rate 12 Actual Respiratory Rate 12 Actual Respiratory Rate 12 Actual Respiratory Rate 12 Actual Respiratory Rate 12 Actual Respiratory Rate 12 Actual Respiratory Rate 12 Positive End Expiratory 5 Pressure Positive End Expiratory 5 Pressure Positive End Expiratory 5 Pressure Positive End Expiratory 5 Pressure Positive End Expiratory 5 Pressure Positive End Expiratory 5 Pressure Positive End Expiratory 5 Pressure Positive End Expiratory 5 Pressure Positive End Expiratory 5 Pressure Positive End Expiratory 5 Pressure Positive End Expiratory 5 Pressure Peak Inspiratory Airway 23 Pressure Peak Inspiratory Airway 21 Pressure Peak Inspiratory Airway 21 Pressure Peak Inspiratory Airway 22 Pressure Peak Inspiratory Airway 24 Pressure Peak Inspiratory Airway 25 Pressure Peak Inspiratory Airway 25 Pressure Peak Inspiratory Airway 25 Pressure Peak Inspiratory Airway 23 Pressure Peak Inspiratory Airway 23 Pressure Peak Inspiratory Airway 23 Pressure Results - Laboratory Findings CBC and BMP: 09/16/16 06:00 09/16/16 06:00 ABG ABG pH 7.55 pH Units (7.32-7.45) H 09/15/16 16:40 ABG pCO2 32 mmHg (35-45) L 09/15/16 16:40 ABG pO2 154 mmHg (85-104) H 09/15/16 16:40 ABG O2 Saturation 100 % (95-98) H 09/15/16 16:40 PT/INR, D-dimer PT 32.6 Seconds (9.4-12.1) H 09/16/16 03:00 Abnormal lab findings: Abnormal lab results WBC 12.2 K/mcL (4.3-11.1) H 09/16/16 06:00 Hct 32.8 % (35.3-44.9) L 09/16/16 06:00 MCV 78.8 fL (83.0-100.0) L 09/16/16 06:00 MCHC 36.3 g/dL (31.6-35.5) H 09/16/16 06:00 Monocytes # 1.7 K/mcL (0.0-1.3) H 09/16/16 06:00 ESR 44 mm/hr (0-15) H 09/15/16 00:27 PT 32.6 Seconds (9.4-12.1) H 09/16/16 03:00 APTT 48.9 Seconds (26.0-36.0) H 09/15/16 00:27 ABG pH 7.55 pH Units (7.32-7.45) H 09/15/16 16:40 ABG pCO2 32 mmHg (35-45) L 09/15/16 16:40 ABG pO2 154 mmHg (85-104) H 09/15/16 16:40 ABG HCO3 28.0 mEQ/L (21-27) H 09/15/16 16:40 ABG Total CO2 29.0 mEq/L (20-26) H 09/15/16 16:40 ABG O2 Saturation 100 % (95-98) H 09/15/16 16:40 ABG Base Excess 5.7 mEq/L (-2.0 to 3.0) H 09/15/16 16:40 VBG pH 7.53 pH Units (7.32-7.42) H 09/15/16 00:27 VBG pCO2 36 mmHg (41-51) L 09/15/16 00:27 VBG pO2 141 mmHg (25-40) H 09/15/16 00:27 VBG HCO3 30.1 mEq/L (21-27) H 09/15/16 00:27 Sodium 123 mEq/L (136-145) L 09/16/16 06:00 Chloride 89 mEq/L (98-109) L 09/16/16 06:00 Glucose 114 mg/dL (70-99) H 09/16/16 06:00 Serum Osmolality 251 mOsm/kg (280-300) L 09/15/16 23:00 Calculated Osmolality 258 (280-300) L 09/16/16 06:00 Ionized Calcium 1.05 mmol/L (1.15-1.35) L 09/16/16 03:00 Iron 40 mcg/dL (50-170) L 09/15/16 05:56 % Saturation 10 % (15-50) L 09/15/16 05:56 Total Bilirubin 1.4 mg/dL (0.2-1.2) H 09/15/16 00:27 AST 40 Units/L (5-34) H 09/15/16 00:27 ALT 59 Units/L (0-55) H 09/15/16 00:27 Globulin 3.7 g/dL (2.4-3.5) H 09/15/16 00:27 Albumin/Globulin Ratio 1.0 (1.1-2.2) L 09/15/16 00:27 Folate 6.1 ng/mL (7.0-31.4) L 09/15/16 00:27 TSH 0.178 mcIU/mL (0.350-4.840) L 09/15/16 00:27 Urine Protein 30 mg/dL (Neg-Trace) H 09/15/16 00:37 Urine Glucose (UA) 250 mg/dL (Normal) H 09/15/16 00:37 Urine Blood Trace (Negative) H 09/15/16 00:37 - Clinical Findings Intake & Output: Intake & Output 09/15/16 09/16/16 09/16/16 23:59 07:59 15:59 Intake Total 100 / 100 300 / 300 Output Total 725 / 725 1150 / 1150 Balance -625 / -625 -850 / -850 Weight 68.2 kg Consult Discharge Plan - Plan Referrals: Madeline Ballard MD [Primary Care Provider] -
[2016-09-16 10:53] LABS: Ionized Calcium 1.14 mmol/L (1.15-1.35)
[2016-09-16 10:56] LABS: Magnesium 2.2 mg/dL (1.6-2.6); Phosphorous 2.6 mg/dL (2.3-4.7); Potassium 3.4 mEq/L (3.5-4.5)
--- NOTE | 2016-09-16 11:07 | Carotid Imaging Report ---
Carotid Duplex Patient Name:Gaye Garcia Order Number:[id number] Procedure Date:09/15/2016 Date:1935ge:81 yrs Gender:Female Lt BP:155 / 79 mmHg Location:[facility] Room #: 2NE18 Nutrition Worker:Zenaida Yang, ALISIAT, RDCS Referring MD:Alejandro Soto MD cattle care worker:Madeline Ballard MD Reading MD:Mustapha Kendrick MD Primary Indications:CVA Risk Factors Yes/No Hypertension Yes Diabetes Yes Hypercholesterolemia Yes Impressions: The bilateral carotid arteries have minimal plaque throughout. Findings Carotid Duplex: Right: The right proximal common carotid artery has a PSV of 40 cm/s and a EDV of 6 cm/s. The right mid common carotid artery has a PSV of 40 cm/s and a EDV of 6 cm/s. The right distal common carotid artery has a PSV of 34 cm/s and a EDV of 5 cm/s. The right bifurcation has a PSV of 65 cm/s and a EDV of 9 cm/s. There is smooth heterogeneous plaque. The right proximal internal carotid artery has a PSV of 58 cm/s and a EDV of 9 cm/s. There is smooth heterogeneous plaque. The right mid internal carotid artery has a PSV of 58 cm/s and a EDV of 12 cm/s. The right distal internal carotid artery has a PSV of 68 cm/s and a EDV of 15 cm/s. The right eca has a PSV of 126 cm/s. The right vertebral artery has a PSV of 37 cm/s and a EDV of 7 cm/s. Left: The left proximal common carotid artery has a PSV of 43 cm/s and a EDV of 11 cm/s. The left mid common carotid artery has a PSV of 44 cm/s and a EDV of 9 cm/s. The left distal common carotid artery has a PSV of 44 cm/s and a EDV of 9 cm/s. The left bifurcation has a PSV of 53 cm/s and a EDV of 9 cm/s. There is smooth heterogeneous plaque. The left proximal internal carotid artery has a PSV of 72 cm/s and a EDV of 13 cm/s. There is smooth heterogeneous plaque. The left mid internal carotid artery has a PSV of 90 cm/s and a EDV of 16 cm/s. The left distal internal carotid artery has a PSV of 84 cm/s and a EDV of 15 cm/s. The left eca has a PSV of 77 cm/s and a EDV of 8 cm/s. The left vertebral artery has a PSV of 28 cm/s and a EDV of 7 cm/s. Carotid Results Right PSV EDV Assessment Proximal CCA 40 6 Mid CCA 40 6 Distal CCA 34 5 Bifurcation 65 9 Non Stenotic Plaque Proximal ICA 58 9 Non Stenotic Plaque Mid ICA 58 12 Distal ICA 68 15 ECA 126 0 Vertebral Artery 37 7 Left PSV EDV Assessment Proximal CCA 43 11 Mid CCA 44 9 Distal CCA 44 9 Bifurcation 53 9 Non Stenotic Plaque Proximal ICA 72 13 Non Stenotic Plaque Mid ICA 90 16 Distal ICA 84 15 ECA 77 8 Vertebral Artery 28 7 Ratio's Right ICA/CCA Ratio: 1.45 Left ICA/CCA Ratio: 2.05 Updated by Mustapha Kendrick MD on 09/16/2016 10:59:14 AM electronically signed on 09/16/2016 11:00:53 AM with status of Final
--- NOTE | 2016-09-16 14:50 | Nephrology Consult Note ---
Date of Encounter: 09/16/16 Time of Encounter: 14:44 Assessment and Plan (1) Hyponatremia Current Visit: Yes Status: Acute Patient with hyponatremia. Sudden low sodium level seems to be lab error. She seems to have a stable low sodium at this time. Will perform the work-up indicated below and further instructions will follow. - repeat sodium - urine and serum osmolality - random cortisol. I recommend correcting thyroid abnormality indicated by low TSH. I recommend changing carrier fluids for IV medications to 0.9 if possible. Restrict free water. Will follow. (2) Hypokalemia Current Visit: Yes Status: Acute Replace as needed. History of Present Illness - Reason for Consult Consult date: 09/16/16 hyponatremia - Chief Complaint hyponatremia - History of Present Illness Ms Garcia is an 81 yo woman with a history of CVA who presents as a transfer from outside hospital for the evaluation of altered mental status. She was subsequently intubated and sedated. History is unobtainable from the patient. History is obtained from review of the medical record. Past Med Surg Social Fam HX - Past Medical History Medical history: arthritis, atrial fibrillation, cardiomyopathy, CHF, CVA, diabetes, GERD, hyperlipidemia, hypertension, osteoporosis, peripheral artery disease, thyroid disease, TIA, other Psychiatric history: no psych history, other - Past Surgical History Surgical History: non-contributory, other - Social History Smoking Status: Never smoker Alcohol use: none, unknown Drug use: none, unknown Medications and Allergies Aspirin [Ecotrin] 325 mg PO DAILY 09/01/16 [History] Bisacodyl [Woman's Laxative] 5 mg PO DAILY 09/01/16 [History] Carvedilol [Coreg] 6.25 mg PO BID 09/01/16 [History] GlipiZIDE [Glipizide] 10 mg PO DAILY 09/01/16 [History] Insulin Glargine [Lantus] 32 units SQ DAILY 09/01/16 [History] Pravastatin Sodium [Pravachol] 40 mg PO HS 09/01/16 [History] Warfarin [Coumadin] 2.5 mg PO DAILY 09/01/16 [History] Amlodipine Besylate [Amlodipine Besylate] 10 mg PO DAILY 09/15/16 [History] Furosemide [Lasix] 20 mg PO AD PRN 09/15/16 [History] Insulin ASPART [Novolog Flexpen] 2 - 8 unit SQ TIDWM 09/15/16 [History] Levothyroxine [Synthroid] 100 mcg PO DAILY 09/15/16 [History] Allergies Penicillins Allergy (Verified 09/15/16 12:22) Rash Review of Systems ROS unobtainable: due to mental status Exam - Vital Signs Vital signs: Initial Vital Signs Temp Pulse Resp BP Pulse Ox 98.3 F 85 20 175/105 100 09/14/16 23:07 09/14/16 23:07 09/14/16 23:07 09/14/16 23:07 09/14/16 23:07 Vital Signs - Last 8 Hours Temp Pulse Resp BP Pulse Ox 09/16/16 13:00 78 12 119/64 99 09/16/16 12:00 81 12 96/52 98 09/16/16 11:30 81 09/16/16 11:00 85 12 111/51 99 09/16/16 10:00 88 12 128/84 99 09/16/16 09:00 98 12 141/81 99 09/16/16 08:34 12 119/69 100 09/16/16 08:02 79 09/16/16 08:00 95 12 104/54 100 09/16/16 07:45 98.4 F 09/16/16 07:00 90 12 109/65 99 Intake and Output 09/15/16 09/16/16 09/16/16 23:59 07:59 15:59 Intake Total 100 / 100 404 / 404 210 / 210 Output Total 725 / 725 1150 / 1150 Balance -625 / -625 -746 / -746 210 / 210 Intake: IV Fluids 100 / 100 404 / 404 110 / 110 Diprivan 1,000 mg In 100 100 / 100 100 / 100 ml @ 10 MCG/KG/MIN 3.9 mls/hr IVC .Q24H [facility] Rx#: [id number] Calcium Gluconate 1,000 110 / 110 MG In Dextrose 5% 100 ML @ 50 mls/hr IVPB Q6HR PRN Rx#:[id number] Magnesium Sulfate 2 GM In 104 / 104 Dextrose 5% 100 ML @ 50 mls/hr IVPB Q6H PRN Rx#: [id number] Potassium Chloride 20 mEq 200 / 200 /100 mL 40 meq In 200 ml @ 100 mls/hr IVPB Q1H PRN Rx#:[id number] Oral 0 / 0 0 / 0 Free Water Intake Amount 100 / 100 Output: Catheter 725 / 725 1150 / 1150 Other: Weight 68.2 kg Blood Glucose* 71 114 Patient Weight 09/16/16 23:59 Weight 68.2 kg - General Appearance General appearance: well-developed, well-nourished EENT: ATNC Neck: supple Respiratory: clear (anteriorly) Cardiology: no edema, regular rate, regular rhythm Gastrointestinal: normoactive bowel sounds, no tenderness Integumentary: warm and dry Additional Comments: intubated and sedated. Musculoskeletal: no cyanosis Results - Lab Results 09/16/16 06:00 09/16/16 10:40 Most recent lab results ABG pH 7.55 pH Units (7.32-7.45) H 09/15/16 16:40 ABG pCO2 32 mmHg (35-45) L 09/15/16 16:40 ABG pO2 154 mmHg (85-104) H 09/15/16 16:40 ABG HCO3 28.0 mEQ/L (21-27) H 09/15/16 16:40 ABG O2 Saturation 100 % (95-98) H 09/15/16 16:40 Calcium 8.9 mg/dL (8.6-10.8) 09/16/16 06:00 Phosphorus 2.6 mg/dL (2.3-4.7) 09/16/16 10:40 Magnesium 2.2 mg/dL (1.6-2.6) 09/16/16 10:40 Consult Discharge Plan - Plan Referrals: Madeline Ballard MD [Primary Care Provider] -
[2016-09-16] MEDS: Insulin DETEMIR 100 UNIT/ML X5UNITS SQ SCH (15:56)
[2016-09-16] MEDS ORDERED: *HR* Warfarin 2.5 MG TABLET PO SCH (18:00)
[2016-09-16 18:46] LABS: Phosphorous 3.4 mg/dL (2.3-4.7); Potassium 3.8 mEq/L (3.5-4.5)
[2016-09-17] MEDS: Insulin LISPRO 300 UNITS/3 ML VIAL SQ SCH ×6 (04:40→23:47)
[2016-09-17 05:09] LABS: Ionized Calcium 1.03 mmol/L (1.15-1.35)
[2016-09-17 05:10] LABS: INR 2.5; Prothrombin Time 27.9 Seconds (9.4-12.1)
[2016-09-17 05:12] LABS: Magnesium 1.9 mg/dL (1.6-2.6); Phosphorous 3.5 mg/dL (2.3-4.7)
[2016-09-17 05:13] LABS: BUN/Creatinine Ratio 23 (6-26); Blood Urea Nitrogen 22 mg/dL (7-20); Carbon Dioxide 24 mEq/L (19-29); Chloride 95 mEq/L (98-109); Glucose 107 mg/dL (70-99); Osmolality,Calculated 268 (280-300); Potassium 4.1 mEq/L (3.5-4.5); Sodium 127 mEq/L (136-145); eGFR For African Americans > 60 (> 60); eGFR For Non-African Americans 55 (> 60)
[2016-09-17] MEDS: Magnesium Sulfate 2 GM in D5% in Water 100 ML IVPB PRN (06:07)
[2016-09-17] MEDS: Calcium Gluconate 1,000 MG in D5% in Water 100 ML IVPB PRN (06:07)
--- NOTE | 2016-09-17 07:35 | Pulmonology Progress Note ---
Date of Encounter: 09/17/16 Time of Encounter: 07:34 Assessment and Plan (1) Acute respiratory failure with hypoxia Current Visit: Yes Status: Acute Neuropsych: AMS likely s/t to Aspiration event with underlying hyponatremia. 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 Wean sedation today for MV as tolerate for SBT and cont daily sedation holiday Pulm: Acute respiratory failure with hypoxia secondary to aspiration and probably more appropriately pneumonitis. Patient was intubated mostly for altered mental status. SBT later today Cardsd: History of atrial fibrillation now rate controlled. Patient's on long- term anticoagulation but concern of possible GI bleed FEN-GI: PPI prophylaxis given while on vent. possible GI bleed earlier but no further episodes of blood output for OG. will start enteral feedings History of aspiration after CVA may be candidate for PEG tube placement we will evaluate swallowing after extubation Renal: No VELMA acceptable UOP. Monitor daily metabolic profile ID: No clear evidence of pneumonia would monitor now as empiric antimicrobials were not initiated and at this point no clear impetus to do so Heme/Onc: stop daily Coumadin no need to reverse anticoagulation this time transitioned to anticoagulation via heparin drip when INR <2.0 while remains critically ill. 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 Cortisol and TSH are appropriate the nephrology service is following the patient their recs have been appreciated. Integ/MSK: Continue skin care per ICU protocol to prevent ulcers. CODE: Full Code. (2) Aspiration pneumonia due to food (regurgitated) Current Visit: Yes Status: Acute Qualifiers: Laterality: unspecified laterality Lung location: unspecified part of lung Qualified Code(s): J69.0 - Pneumonitis due to inhalation of food and vomit (3) CVA (cerebral vascular accident) Current Visit: Yes Status: Acute Qualifiers: CVA mechanism: unspecified Qualified Code(s): I63.9 - Cerebral infarction, unspecified (4) Atrial fibrillation Current Visit: Yes Status: Chronic Qualifiers: Atrial fibrillation type: paroxysmal Qualified Code(s): I48.0 - Paroxysmal atrial fibrillation (5) Hyponatremia with decreased serum osmolality Current Visit: Yes Status: Acute (6) Toxic metabolic encephalopathy Current Visit: Yes Status: Acute Subjective Principal diagnosis: Acute respiratory failure with hypoxia, aspiration pneumonitis Interval history: Patient remains hemodynamically stable with support via MV. It was noted that there was some dark return from patient's OG tube early this morning nursing staff felt that this likely reflected blood he output and patient is on Coumadin. Medications were given intraorally in the tube was clamped and later flushed without any evidence of further dark output. Labs from this morning show that the H&H is stable Objective PUL Vital signs: Last Vital Signs Temp 97.7 F 09/17/16 04:20 Pulse 113 09/17/16 06:00 Resp 12 09/17/16 06:00 BP 94/54 09/17/16 06:00 Pulse Ox 98 09/17/16 06:00 General appearance: no acute distress, lethargic, other (She is sedated for anxiety on the mechanical ventilator but is able to attempt to open her eyes and move all extremities to my voice) Effort: normal Auscultation: right: diminished breath sounds Cardiovascular: irregular rhythm Gastrointestinal: normoactive bowel sounds, non-tender Integumentary: normal non-focal exam, pupils equal and round Ventilator Settings Ventilator Settings: Ventilator Settings, Last 8 Hours Ventilator Mode A/C Ventilator Mode A/C Ventilator Mode A/C Ventilator Mode A/C Ventilator Mode A/C Ventilator Mode A/C Ventilator Mode A/C Ventilator Mode A/C Ventilator Mode A/C Ventilator Mode A/C Ventilator Mode A/C Ventilator Tidal Volume 500 Setting Ventilator Tidal Volume 500 Setting Ventilator Tidal Volume 500 Setting Ventilator Tidal Volume 500 Setting Ventilator Tidal Volume 500 Setting Ventilator Tidal Volume 500 Setting Ventilator Tidal Volume 500 Setting Ventilator Tidal Volume 500 Setting Ventilator Tidal Volume 500 Setting Ventilator Tidal Volume 500 Setting Ventilator Tidal Volume 500 Setting Ventilator Respiratory Rate 12 Setting Ventilator Respiratory Rate 12 Setting Ventilator Respiratory Rate 12 Setting Ventilator Respiratory Rate 12 Setting Ventilator Respiratory Rate 12 Setting Ventilator Respiratory Rate 12 Setting Ventilator Respiratory Rate 12 Setting Ventilator Respiratory Rate 12 Setting Ventilator Respiratory Rate 12 Setting Ventilator Respiratory Rate 12 Setting Ventilator Respiratory Rate 12 Setting Actual Respiratory Rate 12 Actual Respiratory Rate 12 Actual Respiratory Rate 12 Actual Respiratory Rate 12 Actual Respiratory Rate 12 Actual Respiratory Rate 12 Actual Respiratory Rate 12 Actual Respiratory Rate 12 Actual Respiratory Rate 12 Actual Respiratory Rate 12 Actual Respiratory Rate 12 Positive End Expiratory 5 Pressure Positive End Expiratory 5 Pressure Positive End Expiratory 5 Pressure Positive End Expiratory 5 Pressure Positive End Expiratory 5 Pressure Positive End Expiratory 5 Pressure Positive End Expiratory 5 Pressure Positive End Expiratory 5 Pressure Positive End Expiratory 5 Pressure Positive End Expiratory 5 Pressure Positive End Expiratory 5 Pressure Peak Inspiratory Airway 24 Pressure Peak Inspiratory Airway 24 Pressure Peak Inspiratory Airway 27 Pressure Peak Inspiratory Airway 27 Pressure Peak Inspiratory Airway 27 Pressure Peak Inspiratory Airway 27 Pressure Peak Inspiratory Airway 27 Pressure Peak Inspiratory Airway 27 Pressure Peak Inspiratory Airway 25 Pressure Peak Inspiratory Airway 25 Pressure Peak Inspiratory Airway 28 Pressure Results - Laboratory Findings CBC and BMP: 09/17/16 07:30 09/17/16 04:50 ABG ABG pH 7.55 pH Units (7.32-7.45) H 09/15/16 16:40 ABG pCO2 32 mmHg (35-45) L 09/15/16 16:40 ABG pO2 154 mmHg (85-104) H 09/15/16 16:40 ABG O2 Saturation 100 % (95-98) H 09/15/16 16:40 PT/INR, D-dimer PT 27.9 Seconds (9.4-12.1) H 09/17/16 04:50 Abnormal lab findings: Abnormal lab results WBC 12.2 K/mcL (4.3-11.1) H 09/16/16 06:00 Hct 32.8 % (35.3-44.9) L 09/16/16 06:00 MCV 78.8 fL (83.0-100.0) L 09/16/16 06:00 MCHC 36.3 g/dL (31.6-35.5) H 09/16/16 06:00 Monocytes # 1.7 K/mcL (0.0-1.3) H 09/16/16 06:00 ESR 44 mm/hr (0-15) H 09/15/16 00:27 PT 27.9 Seconds (9.4-12.1) H 09/17/16 04:50 APTT 48.9 Seconds (26.0-36.0) H 09/15/16 00:27 ABG pH 7.55 pH Units (7.32-7.45) H 09/15/16 16:40 ABG pCO2 32 mmHg (35-45) L 09/15/16 16:40 ABG pO2 154 mmHg (85-104) H 09/15/16 16:40 ABG HCO3 28.0 mEQ/L (21-27) H 09/15/16 16:40 ABG Total CO2 29.0 mEq/L (20-26) H 09/15/16 16:40 ABG O2 Saturation 100 % (95-98) H 09/15/16 16:40 ABG Base Excess 5.7 mEq/L (-2.0 to 3.0) H 09/15/16 16:40 VBG pH 7.53 pH Units (7.32-7.42) H 09/15/16 00:27 VBG pCO2 36 mmHg (41-51) L 09/15/16 00:27 VBG pO2 141 mmHg (25-40) H 09/15/16 00:27 VBG HCO3 30.1 mEq/L (21-27) H 09/15/16 00:27 Sodium 127 mEq/L (136-145) L 09/17/16 04:50 Chloride 95 mEq/L (98-109) L 09/17/16 04:50 BUN 22 mg/dL (7-20) H 09/17/16 04:50 Est GFR (Non-Af Amer) 55 (> 60) L 09/17/16 04:50 Glucose 107 mg/dL (70-99) H 09/17/16 04:50 POC Glucose 120 (58-89) H 09/17/16 03:57 Serum Osmolality 265 mOsm/kg (280-300) L 09/16/16 15:20 Calculated Osmolality 268 (280-300) L 09/17/16 04:50 Calcium 8.0 mg/dL (8.6-10.8) L 09/17/16 04:50 Ionized Calcium 1.03 mmol/L (1.15-1.35) L 09/17/16 04:50 Iron 40 mcg/dL (50-170) L 09/15/16 05:56 % Saturation 10 % (15-50) L 09/15/16 05:56 Total Bilirubin 1.4 mg/dL (0.2-1.2) H 09/15/16 00:27 AST 40 Units/L (5-34) H 09/15/16 00:27 ALT 59 Units/L (0-55) H 09/15/16 00:27 Globulin 3.7 g/dL (2.4-3.5) H 09/15/16 00:27 Albumin/Globulin Ratio 1.0 (1.1-2.2) L 09/15/16 00:27 Folate 6.1 ng/mL (7.0-31.4) L 09/15/16 00:27 TSH 0.178 mcIU/mL (0.350-4.840) L 09/15/16 00:27 Urine Protein 30 mg/dL (Neg-Trace) H 09/15/16 00:37 Urine Glucose (UA) 250 mg/dL (Normal) H 09/15/16 00:37 Urine Blood Trace (Negative) H 09/15/16 00:37 Urine Osmolality 199 mOsm/kg (300-1090) L 09/16/16 15:25 - Microbiology Findings Microbiology Findings: Microbiology, Last 48 Hours 09/16/16 15:40 Sputum Culture - Preliminary Sputum - Clinical Findings Intake & Output: Intake & Output 09/16/16 09/16/16 09/17/16 15:59 23:59 07:59 Intake Total 510 / 510 1100 / 1100 100 / 100 Output Total 225 / 225 300 / 300 400 / 400 Balance 285 / 285 800 / 800 -300 / -300 Weight 68.175 kg - VTE Reasons for not Prescribing Prophylaxis: Not indicated-Anticoagulated or INR therapeutic Consult Discharge Plan - Plan Referrals: Madeline Ballard MD [Primary Care Provider] -
[2016-09-17 07:45] LABS: Basophils % 0.1 %; Eosinophils % 0.2 %; Hematocrit 31.1 % (35.3-44.9); Hemoglobin 10.8 g/dL (11.5-15.4); Immature Granulocytes % 1.1 % (0-4); Lymphocytes # 1.1 K/mcL (0.6-4.6); Mean Corpuscular HGB Conc 34.7 g/dL (31.6-35.5); Mean Corpuscular Hemoglobin 28.3 pg (28.0-33.3); Mean Corpuscular Volume 81.4 fL (83.0-100.0); Mean Platelet Volume 9.9 fL (9.4-12.4); Monocytes # 1.4 K/mcL (0.0-1.3); Monocytes % 12.4 %; Neutrophils # 8.5 K/mcL (1.6-8.9); Nucleated Red Blood Cells 0.2 /100 WBC (0); Platelet Count 293 K/mcL (140-400); Red Blood Count 3.82 M/mcL (3.82-4.97); Red Cell Distribution Width 14.1 % (11.5-14.5); Segmented Neutrophils % 76.2 %
[2016-09-17 08:13] LABS: ABG Base Excess 1.4 mEq/L (-2.0 to 3.0); ABG HCO3 24.4 mEQ/L (21-27); ABG Oxygen Saturation 99 % (95-98); ABG PCO2 32 mmHg (35-45); ABG PH 7.49 pH Units (7.32-7.45); ABG PO2 113 mmHg (85-104); ABG TCO2 25.4 mEq/L (20-26); Blood Gas FiO2 30 %
[2016-09-17] MEDS: Vitamin B Complex/Vit C/Vit E 1 EACH TABLET PO SCH (08:29)
[2016-09-17] MEDS: Folic Acid 1 MG TABLET PO SCH (08:29)
[2016-09-17] MEDS: Aspirin Enteric Coated 325 MG Tablet PO SCH (08:29)
[2016-09-17] MEDS: Chlorhexidine Rinse 15 ML MOUTHWASH MM SCH ×2 (08:29→19:40)
[2016-09-17] MEDS: Thiamine (B-1) 100 MG TABLET PO SCH (08:29)
[2016-09-17 11:13] LABS: Hepatitis A Antibody IgM Nonreactive (Nonreactive); Hepatitis B Core IgM Nonreactive (Nonreactive); Hepatitis C Virus Antibody Nonreactive (Nonreactive)
[2016-09-17 12:14] LABS: Magnesium 2.3 mg/dL (1.6-2.6)
[2016-09-17 12:54] LABS: Ionized Calcium 1.14 mmol/L (1.15-1.35)
[2016-09-17] MEDS ORDERED: *HR* Metoprolol 5 MG/5 ML VIAL IVP ONE (13:30)
[2016-09-17 14:02] LABS: Basophils % 0.1 %; Eosinophils % 0.1 %; Hematocrit 31.8 % (35.3-44.9); Hemoglobin 11.1 g/dL (11.5-15.4); Immature Granulocytes % 0.5 % (0-4); Lymphocytes # 0.9 K/mcL (0.6-4.6); Lymphocytes % 7.3 %; Mean Corpuscular HGB Conc 34.9 g/dL (31.6-35.5); Mean Corpuscular Hemoglobin 28.4 pg (28.0-33.3); Mean Corpuscular Volume 81.3 fL (83.0-100.0); Mean Platelet Volume 9.9 fL (9.4-12.4); Monocytes # 1.6 K/mcL (0.0-1.3); Monocytes % 12.3 %; Neutrophils # 10.3 K/mcL (1.6-8.9); Platelet Count 338 K/mcL (140-400); Red Blood Count 3.91 M/mcL (3.82-4.97); Red Cell Distribution Width 14.1 % (11.5-14.5); Segmented Neutrophils % 79.7 %
--- NOTE | 2016-09-17 15:52 | Nephrology Progress Note ---
Date of Encounter: 09/17/16 Time of Encounter: 15:15 - Assessment and Plan (1) Hyponatremia Current Visit: Yes Status: Acute Patient's sudden low sodium level seems to be lab error. No immediate reason for acute drop in hemoglobin. She seems to have a stable low sodium at this time (127), currently increasing slowly. Urine osmolality appears to be low, indicating appropriate response by her kidneys for her hyponatremia Will obtain serum osmolality Continue to trend serum saodium Recommend changing carrier fluids for IV medications to 0.9 if possible Restrict free water Will follow (2) Hypokalemia Current Visit: Yes Status: Resolved Current potassium 4.1. Replace as needed (3) Aspiration pneumonia due to food (regurgitated) Current Visit: Yes Status: Acute Patient currently intubated Continued management/care per primary team Qualifiers: Laterality: unspecified laterality Lung location: unspecified part of lung Qualified Code(s): J69.0 - Pneumonitis due to inhalation of food and vomit Subjective Principal diagnosis: Acute respiratory failure with hypoxia, aspiration pneumonitis Interval history: When patient seen she is currently undergoing CPAP while intubated. Although alert, she does not answer many question, just that she is uncomfortable being intubated. Objective - Vital Signs Vital signs: Vital Signs Temp Pulse Resp BP Pulse Ox 09/17/16 15:26 126 09/17/16 15:00 110 15 117/56 98 09/17/16 14:00 111 13 137/69 98 09/17/16 13:00 113 17 143/63 98 09/17/16 12:09 97.8 F 09/17/16 12:00 100 12 177/92 99 09/17/16 11:31 12 143/63 99 09/17/16 11:05 100 09/17/16 11:00 103 12 97 09/17/16 10:00 94 12 126/90 96 09/17/16 09:15 12 125/66 98 09/17/16 09:00 101 12 125/66 99 09/17/16 08:00 102 12 153/69 99 09/17/16 07:53 12 125/66 99 09/17/16 07:30 115 09/17/16 07:00 98.1 F 100 12 136/90 100 09/17/16 06:00 113 12 94/54 98 09/17/16 05:43 12 125/50 99 05/01/17 05:00 89 12 139/82 98 09/17/16 04:20 97.7 F 09/17/16 04:00 92 12 123/72 98 09/17/16 03:55 12 121/71 98 09/17/16 03:00 106 12 121/71 98 09/17/16 02:00 112 12 107/67 94 09/17/16 01:25 12 91/64 96 09/17/16 01:00 104 12 91/64 99 09/17/16 00:09 97.9 F 09/17/16 00:00 99 12 89/42 99 09/16/16 23:45 12 110/67 95 09/16/16 23:00 99 12 80/41 99 09/16/16 22:00 99 12 156/85 99 09/16/16 21:44 12 152/85 100 09/16/16 21:00 96 12 81/53 99 09/16/16 20:32 12 78/40 99 09/16/16 20:00 93 12 107/52 99 09/16/16 19:55 98.6 F 09/16/16 19:00 93 12 112/54 99 09/16/16 18:41 12 134/66 100 09/16/16 18:00 94 12 134/64 100 09/16/16 17:00 93 12 122/56 99 09/16/16 16:00 82 12 124/56 99 Intake and Output 09/16/16 09/17/16 09/17/16 23:59 07:59 15:59 Intake Total 1100 / 1100 100 / 100 439 / 439 Output Total 300 / 300 675 / 675 500 / 500 Balance 800 / 800 -575 / -575 -61 / -61 Intake: IV Fluids 1100 / 1100 100 / 100 289 / 289 0.9 % Sodium Chloride 1, 1000 / 1000 000 ML @ 50 mls/hr IVC . Q20H [facility] Rx#:[id number] Diprivan 1,000 mg In 100 100 / 100 100 / 100 75 / 75 ml @ 10 MCG/KG/MIN 3.9 mls/hr IVC .Q24H [facility] Rx#: [id number] Calcium Gluconate 1,000 110 / 110 MG In Dextrose 5% 100 ML @ 50 mls/hr IVPB Q6HR PRN Rx#:[id number] Magnesium Sulfate 2 GM In 104 / 104 Dextrose 5% 100 ML @ 50 mls/hr IVPB Q6H PRN Rx#: [id number] Oral 0 / 0 Free Water Intake Amount 150 / 150 Output: Catheter 300 / 300 675 / 675 500 / 500 Other: Weight 68.175 kg Blood Glucose* 110 145 124 Patient Weight 09/17/16 23:59 Weight 68.175 kg - General Appearance General appearance: Present: well-developed, well-nourished, appears started age EENT: Present: ATNC, mucous membranes moist Respiratory: Present: course breath sounds Additional Comments: intubated Cardiology: Present: no murmurs, no rub, no gallops, no edema, rapid rhythm, irregular rhythm, normal S1, normal S2 Gastrointestinal: Present: hypoactive bowel sounds, no tenderness Integumentary: Present: warm and dry Additional Comments: intubated and lightly sedated Musculoskeletal: Present: no deformities, no erythema, no cyanosis, no clubbing - Lab 09/17/16 13:55 09/17/16 04:50 Most recent lab results ABG pH 7.49 pH Units (7.32-7.45) H 09/17/16 07:48 ABG pCO2 32 mmHg (35-45) L 09/17/16 07:48 ABG pO2 113 mmHg (85-104) H 09/17/16 07:48 ABG HCO3 24.4 mEQ/L (21-27) 09/17/16 07:48 ABG O2 Saturation 99 % (95-98) H 09/17/16 07:48 Calcium 8.0 mg/dL (8.6-10.8) L 09/17/16 04:50 Phosphorus 3.5 mg/dL (2.3-4.7) 09/17/16 04:50 Magnesium 2.3 mg/dL (1.6-2.6) 09/17/16 11:40 - VTE Reasons for not Prescribing Prophylaxis: Not indicated-Anticoagulated or INR therapeutic Consult Discharge Plan - Plan Referrals: Madeline Ballard MD [Primary Care Provider] -
[2016-09-17] MEDS: 0.9 % Sodium Chloride 1,000 ML IVC SCH (16:29)
[2016-09-17] MEDS: Insulin DETEMIR 100 UNIT/ML X5UNITS SQ SCH (16:34)
[2016-09-17] MEDS ORDERED: *HR* Metoprolol 5 MG/5 ML VIAL IVP PRN (16:36)
[2016-09-17] MEDS ORDERED: Bisacodyl 10 MG RECTAL SUPPOSITORY RC PRN (17:16)
[2016-09-18 03:33] LABS: Basophils % 0.1 %; Eosinophils % 0.2 %; Hematocrit 28.4 % (35.3-44.9); Hemoglobin 9.6 g/dL (11.5-15.4); Immature Granulocytes % 0.5 % (0-4); Lymphocytes % 8.4 %; Mean Corpuscular HGB Conc 33.8 g/dL (31.6-35.5); Mean Corpuscular Hemoglobin 28.1 pg (28.0-33.3); Monocytes # 1.3 K/mcL (0.0-1.3); Monocytes % 10.6 %; Neutrophils # 9.6 K/mcL (1.6-8.9); Platelet Count 334 K/mcL (140-400); Red Blood Count 3.42 M/mcL (3.82-4.97); Red Cell Distribution Width 14.4 % (11.5-14.5); Segmented Neutrophils % 80.2 %
[2016-09-18 03:40] LABS: Prothrombin Time 22.3 Seconds (9.4-12.1)
[2016-09-18 03:46] LABS: Calcium 8.2 mg/dL (8.6-10.8); Potassium 3.4 mEq/L (3.5-4.5)
[2016-09-18] MEDS: Insulin LISPRO 300 UNITS/3 ML VIAL SQ SCH ×5 (04:03→20:19)
[2016-09-18 04:16] LABS: Ionized Calcium 1.08 mmol/L (1.15-1.35)
[2016-09-18 04:22] LABS: Magnesium 2.2 mg/dL (1.6-2.6); Phosphorous 4.2 mg/dL (2.3-4.7)
[2016-09-18] MEDS: *HR* Dextrose 50 % in Water (Syg) 50 ML SYRINGE IVP PRN ×2 (04:22→19:45)
[2016-09-18] MEDS: Calcium Gluconate 1,000 MG in D5% in Water 100 ML IVPB PRN (05:26)
[2016-09-18] MEDS: Potassium Chloride 40 MEQ/200 ML BAG IVPB PRN ×2 (05:26→13:56)
[2016-09-18] MEDS: Thiamine (B-1) 100 MG TABLET PO SCH (08:06)
[2016-09-18] MEDS: Aspirin Enteric Coated 325 MG Tablet PO SCH (08:06)
[2016-09-18] MEDS: Folic Acid 1 MG TABLET PO SCH (08:06)
[2016-09-18] MEDS: Vitamin B Complex/Vit C/Vit E 1 EACH TABLET PO SCH (08:06)
[2016-09-18] MEDS: Chlorhexidine Rinse 15 ML MOUTHWASH MM SCH ×2 (08:06→20:24)
--- NOTE | 2016-09-18 10:00 | Pulmonology Progress Note ---
Date of Encounter: 09/18/16 Time of Encounter: 10:00 Assessment and Plan (1) Acute respiratory failure with hypoxia Current Visit: Yes Status: Acute Neuropsych: AMS likely s/t to Aspiration event with electrolyte abnormality. 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 Sedation for vent comfort has been lifted patient is calm and slowly improving mental status Pulm: Acute respiratory failure with hypoxia secondary to aspiration and probably more appropriately pneumonitis. Concern for onging output from NG and aspiration risk. Repeat SBT when more awake. Acceptable O2/Ventilation on todays exam on minimal vent settings. Cardsd: History of atrial fibrillation now rate controlled. History of CVA on Warfarin transition to Heparin gtt today. FEN-GI: PPI prophylaxis given while on vent. Gasrtric occult blood negative. continued output from OG c/w GI source. No obstuction on KUB and patient having BM will advance bowel regimen today. Consider GI consult if no improvement by tomorrow. Renal: No VELMA acceptable UOP. Monitor daily metabolic profile ID: monitoring for aspiration PNA white count slightly elevated but remains afebrile Heme/Onc: H/H slightly lower today likely critical illness/blood draws. No over signs of bleeding. Cont anticoagulation. cont to trend CBC BID. Endo: Chronic hyponatremia appropirate. Glucose is monitored and sliding scale given for hyperglycemia. Integ/MSK: Continue skin care per ICU protocol to prevent ulcers. CODE: Full Code. Family (Daughter and Son in Law updated at bedside. (2) Aspiration pneumonia due to food (regurgitated) Current Visit: Yes Status: Acute Qualifiers: Laterality: unspecified laterality Lung location: unspecified part of lung Qualified Code(s): J69.0 - Pneumonitis due to inhalation of food and vomit (3) CVA (cerebral vascular accident) Current Visit: Yes Status: Acute Qualifiers: CVA mechanism: unspecified Qualified Code(s): I63.9 - Cerebral infarction, unspecified (4) Atrial fibrillation Current Visit: Yes Status: Chronic Qualifiers: Atrial fibrillation type: paroxysmal Qualified Code(s): I48.0 - Paroxysmal atrial fibrillation (5) Hyponatremia with decreased serum osmolality Current Visit: Yes Status: Acute (6) Toxic metabolic encephalopathy Current Visit: Yes Status: Acute Subjective Principal diagnosis: Acute respiratory failure with hypoxia, aspiration pneumonitis Interval history: Patient hemodynamically stable overnight minimal vent support required NG tube output has decreased to some degree but remains consistent with feculent stores was tested for occult blood yesterday and was negative. She has not had any other signs of overt bleeding. Her mental status remains lethargic today during PAP trial she became apneic sedation has been lifted and she is able to follow very simple commands Objective PUL Vital signs: Last Vital Signs Temp 97.8 F 09/18/16 07:56 Pulse 95 09/18/16 09:00 Resp 12 09/18/16 09:44 BP 159/70 09/18/16 09:44 Pulse Ox 100 09/18/16 09:44 General appearance: no acute distress, lethargic Effort: normal Auscultation: bilateral: diminished breath sounds Cardiovascular: regular rate and rhythm, irregular rhythm Gastrointestinal: normoactive bowel sounds, soft, non-tender Extremities: no edema non-focal exam, pupils equal and round Ventilator Settings Ventilator Settings: Ventilator Settings, Last 8 Hours Ventilator Mode A/C Ventilator Mode A/C Ventilator Mode A/C Ventilator Mode A/C Ventilator Mode A/C Ventilator Mode A/C Ventilator Mode A/C Ventilator Mode A/C Ventilator Mode A/C Ventilator Mode A/C Ventilator Mode A/C Ventilator Tidal Volume 500 Setting Ventilator Tidal Volume 500 Setting Ventilator Tidal Volume 500 Setting Ventilator Tidal Volume 500 Setting Ventilator Tidal Volume 500 Setting Ventilator Tidal Volume 500 Setting Ventilator Tidal Volume 500 Setting Ventilator Tidal Volume 500 Setting Ventilator Tidal Volume 500 Setting Ventilator Tidal Volume 500 Setting Ventilator Tidal Volume 500 Setting Ventilator Respiratory Rate 12 Setting Ventilator Respiratory Rate 12 Setting Ventilator Respiratory Rate 12 Setting Ventilator Respiratory Rate 12 Setting Ventilator Respiratory Rate 12 Setting Ventilator Respiratory Rate 12 Setting Ventilator Respiratory Rate 12 Setting Ventilator Respiratory Rate 12 Setting Ventilator Respiratory Rate 12 Setting Ventilator Respiratory Rate 12 Setting Ventilator Respiratory Rate 12 Setting Actual Respiratory Rate 12 Actual Respiratory Rate 12 Actual Respiratory Rate 12 Actual Respiratory Rate 12 Actual Respiratory Rate 12 Actual Respiratory Rate 12 Actual Respiratory Rate 12 Actual Respiratory Rate 12 Actual Respiratory Rate 12 Actual Respiratory Rate 12 Actual Respiratory Rate 12 Positive End Expiratory 5 Pressure Positive End Expiratory 5 Pressure Positive End Expiratory 5 Pressure Positive End Expiratory 5 Pressure Positive End Expiratory 5 Pressure Positive End Expiratory 5 Pressure Positive End Expiratory 5 Pressure Positive End Expiratory 5 Pressure Positive End Expiratory 5 Pressure Positive End Expiratory 5 Pressure Positive End Expiratory 5 Pressure Peak Inspiratory Airway 22 Pressure Peak Inspiratory Airway 24 Pressure Peak Inspiratory Airway 24 Pressure Peak Inspiratory Airway 24 Pressure Peak Inspiratory Airway 24 Pressure Peak Inspiratory Airway 26 Pressure Peak Inspiratory Airway 26 Pressure Peak Inspiratory Airway 23 Pressure Peak Inspiratory Airway 23 Pressure Peak Inspiratory Airway 23 Pressure Peak Inspiratory Airway 23 Pressure Results - Laboratory Findings CBC and BMP: 09/18/16 03:29 09/18/16 12:15 ABG ABG pH 7.49 pH Units (7.32-7.45) H 09/17/16 07:48 ABG pCO2 32 mmHg (35-45) L 09/17/16 07:48 ABG pO2 113 mmHg (85-104) H 09/17/16 07:48 ABG O2 Saturation 99 % (95-98) H 09/17/16 07:48 PT/INR, D-dimer PT 22.3 Seconds (9.4-12.1) H 09/18/16 03:29 Abnormal lab findings: Abnormal lab results WBC 12.0 K/mcL (4.3-11.1) H 09/18/16 03:29 RBC 3.42 M/mcL (3.82-4.97) L 09/18/16 03:29 Hgb 9.6 g/dL (11.5-15.4) L D 09/18/16 03:29 Hct 28.4 % (35.3-44.9) L 09/18/16 03:29 Neutrophils # 9.6 K/mcL (1.6-8.9) H 09/18/16 03:29 Nucleated RBCs/100 WBC 0.2 /100 WBC (0) H 09/17/16 07:30 ESR 44 mm/hr (0-15) H 09/15/16 00:27 PT 22.3 Seconds (9.4-12.1) H 09/18/16 03:29 APTT 48.9 Seconds (26.0-36.0) H 09/15/16 00:27 ABG pH 7.49 pH Units (7.32-7.45) H 09/17/16 07:48 ABG pCO2 32 mmHg (35-45) L 09/17/16 07:48 ABG pO2 113 mmHg (85-104) H 09/17/16 07:48 ABG O2 Saturation 99 % (95-98) H 09/17/16 07:48 VBG pH 7.53 pH Units (7.32-7.42) H 09/15/16 00:27 VBG pCO2 36 mmHg (41-51) L 09/15/16 00:27 VBG pO2 141 mmHg (25-40) H 09/15/16 00:27 VBG HCO3 30.1 mEq/L (21-27) H 09/15/16 00:27 Potassium 3.4 mEq/L (3.5-4.5) L 09/18/16 03:29 BUN 25 mg/dL (7-20) H 09/18/16 03:29 Est GFR (Non-Af Amer) 49 (> 60) L 09/18/16 03:29 Glucose 67 mg/dL (70-99) L 09/18/16 03:29 Calcium 8.2 mg/dL (8.6-10.8) L 09/18/16 03:29 Ionized Calcium 1.08 mmol/L (1.15-1.35) L 09/18/16 03:30 Iron 40 mcg/dL (50-170) L 09/15/16 05:56 % Saturation 10 % (15-50) L 09/15/16 05:56 Total Bilirubin 1.4 mg/dL (0.2-1.2) H 09/15/16 00:27 AST 40 Units/L (5-34) H 09/15/16 00:27 ALT 59 Units/L (0-55) H 09/15/16 00:27 Globulin 3.7 g/dL (2.4-3.5) H 09/15/16 00:27 Albumin/Globulin Ratio 1.0 (1.1-2.2) L 09/15/16 00:27 Folate 6.1 ng/mL (7.0-31.4) L 09/15/16 00:27 TSH 0.178 mcIU/mL (0.350-4.840) L 09/15/16 00:27 Urine Protein 30 mg/dL (Neg-Trace) H 09/15/16 00:37 Urine Glucose (UA) 250 mg/dL (Normal) H 09/15/16 00:37 Urine Blood Trace (Negative) H 09/15/16 00:37 Urine Osmolality 199 mOsm/kg (300-1090) L 09/16/16 15:25 - Microbiology Findings Microbiology Findings: Microbiology, Last 48 Hours 09/16/16 15:40 Sputum Culture - Preliminary Sputum - Clinical Findings Intake & Output: Intake & Output 09/17/16 09/18/16 09/18/16 23:59 07:59 15:59 Intake Total 1225 / 1225 410 / 410 Output Total 1550 / 1550 125 / 125 Balance -325 / -325 285 / 285 Weight 69 kg - VTE Reasons for not Prescribing Prophylaxis: Not indicated-Anticoagulated or INR therapeutic Consult Discharge Plan - Plan Referrals: Madeline Ballard MD [Primary Care Provider] -
--- NOTE | 2016-09-18 10:33 | Nephrology Progress Note ---
Date of Encounter: 09/18/16 Time of Encounter: 08:45 - Assessment and Plan (1) Hyponatremia Current Visit: Yes Status: Acute Patient's sudden low sodium level seems to be lab error. No immediate reason for acute drop in hemoglobin. She seems to have a stable low sodium at this time (127), currently increasing slowly. Originally low and now normal serum osmolality with low urine osmolality, indicating appropriate response by her kidneys for her hyponatremia Continue to trend serum sodium Recommend changing carrier fluids for IV medications to 0.9 if possible We will change patient normal saline to 0.45 saline to run to rapid increase in patient's sodium Restrict free water Will follow (2) Hypokalemia Current Visit: Yes Status: Resolved Current potassium 3.6 Replace as needed (3) Aspiration pneumonia due to food (regurgitated) Current Visit: Yes Status: Acute Patient currently intubated Continued management/care per primary team Qualifiers: Laterality: unspecified laterality Lung location: unspecified part of lung Qualified Code(s): J69.0 - Pneumonitis due to inhalation of food and vomit Subjective Principal diagnosis: Acute respiratory failure with hypoxia, aspiration pneumonitis Interval history: Patient remains intubated, she currently has a continued normal saline drip. She was minimally responsive when seen. Her serum sodium has risen to a normal level today. Objective - Vital Signs Vital signs: Vital Signs Temp Pulse Resp BP Pulse Ox 09/18/16 10:00 96 12 141/68 100 09/18/16 09:44 12 159/70 100 09/18/16 09:00 95 12 159/70 100 09/18/16 08:00 95 12 159/70 100 09/18/16 07:56 97.8 F 09/18/16 07:40 12 136/78 99 09/18/16 07:26 93 12 136/78 99 09/18/16 06:00 100 12 153/94 99 09/18/16 05:56 12 98/44 99 09/18/16 05:00 95 12 81/40 97 09/18/16 04:00 97 12 131/58 97 09/18/16 03:00 97.7 F 100 12 92/47 97 09/18/16 02:30 12 98 09/18/16 02:00 100 12 156/86 96 09/18/16 01:00 103 12 108/50 99 09/18/16 00:14 12 103/55 99 09/17/16 23:50 98.2 F 100 12 107/55 99 09/17/16 23:00 100 12 108/51 99 09/17/16 22:10 12 99/54 99 09/17/16 22:00 103 12 99/54 99 09/17/16 21:20 12 93/52 99 09/17/16 21:00 108 12 109/55 99 09/17/16 20:00 112 12 131/66 100 09/17/16 19:09 97.9 F 09/17/16 19:00 107 12 120/55 100 09/17/16 18:00 107 12 95/73 100 09/17/16 17:38 12 103/48 99 09/17/16 17:00 105 12 107/68 99 09/17/16 16:50 97.8 F 09/17/16 16:00 122 10 148/89 99 09/17/16 15:26 126 09/17/16 15:00 110 15 117/56 98 09/17/16 14:00 111 13 137/69 98 09/17/16 13:00 113 17 143/63 98 09/17/16 12:09 97.8 F 09/17/16 12:00 100 12 177/92 99 09/17/16 11:31 12 143/63 99 09/17/16 11:05 100 09/17/16 11:00 103 12 97 Intake and Output 09/17/16 09/18/16 09/18/16 23:59 07:59 15:59 Intake Total 1225 / 1225 410 / 410 90 / 90 Output Total 1550 / 1550 125 / 125 Balance -325 / -325 285 / 285 90 / 90 Intake: IV Fluids 1225 / 1225 410 / 410 90 / 90 0.9 % Sodium Chloride 1, 1000 / 1000 000 ML @ 50 mls/hr IVC . Q20H [facility] Rx#:[id number] Diprivan 1,000 mg In 100 25 / 25 100 / 100 90 / 90 ml @ 10 MCG/KG/MIN 3.9 mls/hr IVC .Q24H [facility] Rx#: [id number] Calcium Gluconate 1,000 110 / 110 MG In Dextrose 5% 100 ML @ 50 mls/hr IVPB Q6HR PRN Rx#:[id number] Potassium Chloride 20 mEq 200 / 200 200 / 200 /100 mL 40 meq In 200 ml @ 100 mls/hr IVPB Q1H PRN Rx#:[id number] Oral 0 / 0 0 / 0 Output: Catheter 1050 / 1050 125 / 125 Gastric Drainage 500 / 500 Other: Stool Size Moderate Stool Consistency soft Stool Color Brown # Bowel Movements 1 Weight 69 kg Blood Glucose* 87 119 119 - General Appearance Exam: General: Patient intubated and sedated, minimally responsive Head: Normocephalic, atraumatic Neck: Supple, trachea midline Respiratory: Mechanically ventilated, clear to auscultation bilaterally, no wheezes/rhonchi/rales appreciated Cardiovascular: Regular rate and rhythm, S1 and S2 present, no murmurs/rubs/ gallops/clicks appreciated GI/abdominal: Nondistended, nontender, soft, normal bowel sounds, no peritoneal signs Extremities: Noncyanotic, no pedal edema appreciated, warm, lower extremity pulses palpable and symmetrical Neurological: Intubated and sedated Skin: Dry, intact, normal color - Lab 09/18/16 03:29 09/18/16 12:15 Most recent lab results ABG pH 7.49 pH Units (7.32-7.45) H 09/17/16 07:48 ABG pCO2 32 mmHg (35-45) L 09/17/16 07:48 ABG pO2 113 mmHg (85-104) H 09/17/16 07:48 ABG HCO3 24.4 mEQ/L (21-27) 09/17/16 07:48 ABG O2 Saturation 99 % (95-98) H 09/17/16 07:48 Calcium 8.2 mg/dL (8.6-10.8) L 09/18/16 03:29 Phosphorus 4.2 mg/dL (2.3-4.7) 09/18/16 03:30 Magnesium 2.2 mg/dL (1.6-2.6) 09/18/16 03:30 - VTE Reasons for not Prescribing Prophylaxis: Not indicated-Anticoagulated or INR therapeutic Consult Discharge Plan - Plan Referrals: Madeline Ballard MD [Primary Care Provider] -
[2016-09-18] MEDS ORDERED: *HR* Heparin 5,000 UNIT/ML VIAL IVP PRN ×2 (11:05)
[2016-09-18] MEDS ORDERED: *HR* Heparin 5,000 UNIT/ML VIAL IVP ONE (11:05)
[2016-09-18] MEDS: 0.9 % Sodium Chloride 1,000 ML IVC SCH (11:23)
[2016-09-18] MEDS: Heparin 25,000 UNIT/500 ML D5W 25,000 UNIT/500 ML MLS IVC SCH (12:02)
[2016-09-18 12:31] LABS: Ionized Calcium 1.16 mmol/L (1.15-1.35); Potassium 3.6 mEq/L (3.5-4.5)
[2016-09-18] MEDS: FentaNYL (PF) 1,000 MCG in 0.9 % Sodium Chloride 80 ML IVC SCH (14:52)
[2016-09-18] MEDS: Insulin DETEMIR 100 UNIT/ML X5UNITS SQ SCH (17:15)
[2016-09-18 17:51] LABS: INR 2.2; Prothrombin Time 24.3 Seconds (9.4-12.1)
[2016-09-18 18:01] LABS: Basophils % 0.2 %; Eosinophils # 0.1 K/mcL (0.0-0.6); Eosinophils % 0.8 %; Hematocrit 27.2 % (35.3-44.9); Hemoglobin 9.4 g/dL (11.5-15.4); Immature Granulocytes % 0.9 % (0-4); Lymphocytes # 1.5 K/mcL (0.6-4.6); Lymphocytes % 12.4 %; Mean Corpuscular HGB Conc 34.6 g/dL (31.6-35.5); Mean Corpuscular Hemoglobin 29.3 pg (28.0-33.3); Mean Corpuscular Volume 84.7 fL (83.0-100.0); Mean Platelet Volume 10.1 fL (9.4-12.4); Monocytes # 1.2 K/mcL (0.0-1.3); Monocytes % 9.8 %; Platelet Count 290 K/mcL (140-400); Red Blood Count 3.21 M/mcL (3.82-4.97); Segmented Neutrophils % 75.9 %
[2016-09-18 18:11] LABS: Activated Partial Thrombo Time 291.7 Seconds (26.0-36.0)
[2016-09-18 18:26] LABS: Platelet Estimate Normal (Normal)
[2016-09-18 18:43] LABS: Heparin anti-factor XA UFH 1.13 IU/mL (0.30-0.70)
[2016-09-19] MEDS: Insulin LISPRO 300 UNITS/3 ML VIAL SQ SCH ×6 (00:12→21:42)
[2016-09-19] MEDS ORDERED: D5 IVC ONE (01:21)
[2016-09-19] MEDS ORDERED: NACL 0.45% IVC ONE (01:21)
[2016-09-19] MEDS: D5% in 0.9% NACL w KCl 20 MEQ/1,000 ML MLS IVC SCH ×2 (01:25→21:27)
[2016-09-19 04:03] LABS: Hematocrit 27.7 % (35.3-44.9); Hemoglobin 9.4 g/dL (11.5-15.4); Mean Corpuscular HGB Conc 33.9 g/dL (31.6-35.5); Mean Corpuscular Hemoglobin 28.8 pg (28.0-33.3); Mean Platelet Volume 9.7 fL (9.4-12.4); Platelet Count 278 K/mcL (140-400); Red Blood Count 3.26 M/mcL (3.82-4.97); Red Cell Distribution Width 14.1 % (11.5-14.5)
[2016-09-19 04:04] LABS: Ionized Calcium 1.15 mmol/L (1.15-1.35)
[2016-09-19 04:07] LABS: INR 1.8; Prothrombin Time 19.7 Seconds (9.4-12.1)
[2016-09-19 04:13] LABS: BUN/Creatinine Ratio 25 (6-26); Blood Urea Nitrogen 20 mg/dL (7-20); Calcium 8.1 mg/dL (8.6-10.8); Carbon Dioxide 24 mEq/L (19-29); Chloride 104 mEq/L (98-109); Glucose 86 mg/dL (70-99); Magnesium 1.7 mg/dL (1.6-2.6); Osmolality,Calculated 280 (280-300); Phosphorous 3.2 mg/dL (2.3-4.7); Potassium 3.7 mEq/L (3.5-4.5); Sodium 134 mEq/L (136-145); eGFR For African Americans > 60 (> 60); eGFR For Non-African Americans > 60 (> 60)
[2016-09-19] MEDS: Magnesium Sulfate 2 GM in D5% in Water 100 ML IVPB PRN (06:35)
[2016-09-19] MEDS: Potassium Chloride 40 MEQ/200 ML BAG IVPB PRN (06:35)
[2016-09-19] MEDS: Vitamin B Complex/Vit C/Vit E 1 EACH TABLET PO SCH (08:30)
[2016-09-19] MEDS: Folic Acid 1 MG TABLET PO SCH (08:30)
[2016-09-19] MEDS: Thiamine (B-1) 100 MG TABLET PO SCH (08:30)
[2016-09-19] MEDS: Aspirin Enteric Coated 325 MG Tablet PO SCH (08:30)
[2016-09-19] MEDS: Chlorhexidine Rinse 15 ML MOUTHWASH MM SCH ×2 (08:31→21:42)
--- NOTE | 2016-09-19 09:41 | Nephrology Progress Note ---
Date of Encounter: 09/19/16 Time of Encounter: 09:00 - Assessment and Plan (1) Hyponatremia Current Visit: Yes Status: Acute Patient's sudden low sodium level seems to be lab error. No immediate reason for acute drop in hemoglobin. She seems to have a stable low sodium at this time (127), currently increasing slowly. Originally low and now normal serum osmolality with low urine osmolality, indicating appropriate response by her kidneys for her hyponatremia Continue daily chemistry Recommend changing carrier fluids for IV medications to 0.9 if possible Restrict free water Nephrology will sign off, please reconsult if needed. (2) Hypokalemia Current Visit: Yes Status: Resolved Current potassium 3.7 Replace as needed (3) Aspiration pneumonia due to food (regurgitated) Current Visit: Yes Status: Acute Patient currently intubated Continued management/care per primary team Qualifiers: Laterality: unspecified laterality Lung location: unspecified part of lung Qualified Code(s): J69.0 - Pneumonitis due to inhalation of food and vomit Subjective Principal diagnosis: Acute respiratory failure with hypoxia, aspiration pneumonitis Interval history: Patient intubated, but appears to be easily made alert to verbal and light physical stimuli. She appears relatively comfortable currently. Objective - Vital Signs Vital signs: Vital Signs Temp Pulse Resp BP Pulse Ox 09/19/16 09:38 10 142/67 100 09/19/16 09:00 104 10 165/82 100 09/19/16 08:24 99.2 F 09/19/16 08:00 99.2 F 91 09/19/16 07:35 12 171/77 98 09/19/16 07:06 106 12 181/95 97 09/19/16 06:17 12 125/60 100 09/19/16 06:00 80 12 125/60 100 09/19/16 05:02 98.5 F 09/19/16 05:00 85 12 126/61 99 09/19/16 04:17 12 159/69 99 09/19/16 04:00 98.5 F 98 12 159/69 99 09/19/16 03:00 96 12 141/61 99 09/19/16 02:20 12 120/48 98 09/19/16 02:00 97 12 121/48 97 09/19/16 01:00 80 12 128/54 100 09/19/16 00:31 12 127/72 100 09/19/16 00:28 98.5 F 09/19/16 00:00 98.5 F 97 12 153/84 100 09/18/16 23:00 84 12 141/84 100 09/18/16 22:36 12 147/65 100 09/18/16 22:00 77 12 147/65 100 09/18/16 21:00 77 12 127/65 99 09/18/16 20:16 12 183/83 100 09/18/16 20:15 97.7 F 09/18/16 20:00 97.7 F 77 12 183/83 100 09/18/16 19:00 72 12 129/51 100 09/18/16 18:00 77 12 124/60 99 09/18/16 17:11 12 112/60 100 09/18/16 17:00 84 12 112/60 100 09/18/16 16:05 98.2 F 09/18/16 16:00 82 12 123/61 100 09/18/16 15:31 12 110/68 94 09/18/16 15:00 109 12 110/68 99 09/18/16 14:00 102 12 130/56 98 09/18/16 13:05 15 157/70 100 09/18/16 13:00 102 12 162/113 100 09/18/16 12:00 90 13 161/82 99 09/18/16 11:50 97.9 F 09/18/16 11:25 12 161/66 99 09/18/16 11:00 90 12 161/66 100 09/18/16 10:00 96 12 141/68 100 09/18/16 09:44 12 159/70 100 Intake and Output 09/18/16 09/19/16 09/19/16 23:59 07:59 15:59 Intake Total 330 / 330 100 / 100 1304 / 1304 Output Total 150 / 150 450 / 450 150 / 150 Balance 180 / 180 -350 / -350 1154 / 1154 Intake: IV Fluids 330 / 330 100 / 100 304 / 304 FentaNYL (PF) 1,000 MCG 20 / 20 0 / 0 In 0.9 % Sodium Chloride 80 ML @ 50 MCG/HR 5 mls/ hr IVC CONT [facility] Rx#: [id number] Heparin 25,000 UNIT/500 110 / 110 ML D5W 25,000 unit In 500 ml @ 14 UNIT/KG/HR 19.32 mls/hr IVC .Q24H [facility] Rx# :[id number] Diprivan 1,000 mg In 100 100 / 100 ml @ 10 MCG/KG/MIN 3.9 mls/hr IVC .Q24H [facility] Rx#: [id number] Magnesium Sulfate 2 GM In 104 / 104 Dextrose 5% 100 ML @ 50 mls/hr IVPB Q6H PRN Rx#: [id number] Potassium Chloride 20 mEq 200 / 200 200 / 200 /100 mL 40 meq In 200 ml @ 100 mls/hr IVPB Q1H PRN Rx#:[id number] Free Water Intake Amount 1000 / 1000 Output: Catheter 150 / 150 350 / 350 150 / 150 Gastric Drainage 100 / 100 Other: Weight 68.492 kg Blood Glucose* 132 85 99 Patient Weight 09/19/16 23:59 Weight 68.492 kg - General Appearance General appearance: Present: well-developed, well-nourished, appears started age , intubated EENT: Present: ATNC, mucous membranes moist Respiratory: Present: clear. Absent: wheezing, rales, rhonchi Additional Comments: intubated Cardiology: Present: no murmurs, no rub, no gallops, no edema, rapid rhythm, normal S1, normal S2 Gastrointestinal: Present: normoactive bowel sounds, no tenderness Integumentary: Present: no rash, warm and dry Musculoskeletal: Present: no deformities, no erythema, no cyanosis, no clubbing - Lab 09/19/16 03:40 09/19/16 03:40 Most recent lab results ABG pH 7.49 pH Units (7.32-7.45) H 09/17/16 07:48 ABG pCO2 32 mmHg (35-45) L 09/17/16 07:48 ABG pO2 113 mmHg (85-104) H 09/17/16 07:48 ABG HCO3 24.4 mEQ/L (21-27) 09/17/16 07:48 ABG O2 Saturation 99 % (95-98) H 09/17/16 07:48 Calcium 8.1 mg/dL (8.6-10.8) L 09/19/16 03:40 Phosphorus 3.2 mg/dL (2.3-4.7) 09/19/16 03:40 Magnesium 1.7 mg/dL (1.6-2.6) 09/19/16 03:40 - VTE Reasons for not Prescribing Prophylaxis: Not indicated-Anticoagulated or INR therapeutic Consult Discharge Plan - Plan Referrals: Madeline Ballard MD [Primary Care Provider] -
[2016-09-19] MEDS ORDERED: Warfarin perPT PO PRN (10:52)
[2016-09-19] MEDS ORDERED: *HR* Metoprolol 5 MG/5 ML VIAL IVP ONE (11:36)
--- NOTE | 2016-09-19 12:28 | Pulmonology Progress Note ---
Date of Encounter: 09/19/16 Time of Encounter: 12:23 Assessment and Plan (1) Acute respiratory failure with hypoxia Current Visit: Yes Status: Acute Neuropsych: AMS likely s/t to Aspiration event with electrolyte abnormality which appears to have markedly improved I suspect she is nearing her baseline as she does have underlying history of CVA with some amount of memory loss. Pulm: Acute respiratory failure with hypoxia now on minimal vent settings plan for SBT with extubation later today. Cardsd: History of atrial fibrillation now rate controlled. History of CVA on Warfarin which we will restart FEN-GI: PPI prophylaxis given while on vent. Gasrtric occult blood negative. continued output from OG c/w GI source. 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 We will advance the patient's bowel regimen to help facilitate motility Renal: No VELMA acceptable UOP. Baseline hyponatremia (SIADH) which at present is near normal. Monitor daily metabolic profile. ID: The WBC count has normalized Heme/Onc: H/H stable. No over signs of bleeding. Cont anticoagulation. cont to trend CBC BID. Endo: . Glucose is monitored and sliding scale given for hyperglycemia. Integ/MSK: Continue skin care per ICU protocol to prevent ulcers. CODE: Full Code.. (2) Aspiration pneumonia due to food (regurgitated) Current Visit: Yes Status: Acute Qualifiers: Laterality: unspecified laterality Lung location: unspecified part of lung Qualified Code(s): J69.0 - Pneumonitis due to inhalation of food and vomit (3) CVA (cerebral vascular accident) Current Visit: Yes Status: Acute Qualifiers: CVA mechanism: unspecified Qualified Code(s): I63.9 - Cerebral infarction, unspecified (4) Atrial fibrillation Current Visit: Yes Status: Chronic Qualifiers: Atrial fibrillation type: paroxysmal Qualified Code(s): I48.0 - Paroxysmal atrial fibrillation (5) Hyponatremia with decreased serum osmolality Current Visit: Yes Status: Acute (6) Toxic metabolic encephalopathy Current Visit: Yes Status: Acute Subjective Principal diagnosis: Acute respiratory failure with hypoxia, aspiration pneumonitis Interval history: Much more awake today and less agitated she is able to follow commands as asked still having significant amount of output from the OG tube Objective PUL Vital signs: Last Vital Signs Temp 99.2 F 09/19/16 08:24 Pulse 95 09/19/16 12:00 Resp 13 09/19/16 12:00 BP 149/80 09/19/16 12:00 Pulse Ox 99 09/19/16 12:00 General appearance: no acute distress Auscultation: bilateral: diminished breath sounds (in the lung bases) Cardiovascular: irregular rhythm Gastrointestinal: normoactive bowel sounds, soft, non-tender Integumentary: normal Extremities: no edema non-focal exam, pupils equal and round mood appropriate Ventilator Settings Ventilator Settings: Ventilator Settings, Last 8 Hours Ventilator Mode CPAP Ventilator Mode CPAP Ventilator Mode CPAP Ventilator Mode CPAP Ventilator Mode CPAP Ventilator Mode A/C Ventilator Tidal Volume 500 Setting Ventilator Respiratory Rate 12 Setting Ventilator Respiratory Rate 12 Setting Ventilator Respiratory Rate 12 Setting Actual Respiratory Rate 11 Actual Respiratory Rate 11 Actual Respiratory Rate 11 Actual Respiratory Rate 10 Actual Respiratory Rate 12 Actual Respiratory Rate 12 Positive End Expiratory 5 Pressure Positive End Expiratory 5 Pressure Positive End Expiratory 5 Pressure Positive End Expiratory 5 Pressure Positive End Expiratory 5 Pressure Positive End Expiratory 5 Pressure Peak Inspiratory Airway 7 Pressure Peak Inspiratory Airway 13 Pressure Peak Inspiratory Airway 15 Pressure Peak Inspiratory Airway 15 Pressure Peak Inspiratory Airway 15 Pressure Peak Inspiratory Airway 27 Pressure Results - Laboratory Findings CBC and BMP: 09/19/16 03:40 09/19/16 03:40 ABG ABG pH 7.49 pH Units (7.32-7.45) H 09/17/16 07:48 ABG pCO2 32 mmHg (35-45) L 09/17/16 07:48 ABG pO2 113 mmHg (85-104) H 09/17/16 07:48 ABG O2 Saturation 99 % (95-98) H 09/17/16 07:48 PT/INR, D-dimer PT 19.7 Seconds (9.4-12.1) H 09/19/16 03:40 Abnormal lab findings: Abnormal lab results RBC 3.26 M/mcL (3.82-4.97) L 09/19/16 03:40 Hgb 9.4 g/dL (11.5-15.4) L 09/19/16 03:40 Hct 27.7 % (35.3-44.9) L 09/19/16 03:40 Neutrophils # 9.0 K/mcL (1.6-8.9) H 09/18/16 17:40 Nucleated RBCs/100 WBC 0.2 /100 WBC (0) H 09/17/16 07:30 ESR 44 mm/hr (0-15) H 09/15/16 00:27 PT 19.7 Seconds (9.4-12.1) H 09/19/16 03:40 APTT 291.7 Seconds (26.0-36.0) H* D 09/18/16 17:40 Heparin Anti-Xa, Unfract 1.13 IU/mL (0.30-0.70) H* 09/18/16 17:40 ABG pH 7.49 pH Units (7.32-7.45) H 09/17/16 07:48 ABG pCO2 32 mmHg (35-45) L 09/17/16 07:48 ABG pO2 113 mmHg (85-104) H 09/17/16 07:48 ABG O2 Saturation 99 % (95-98) H 09/17/16 07:48 VBG pH 7.53 pH Units (7.32-7.42) H 09/15/16 00:27 VBG pCO2 36 mmHg (41-51) L 09/15/16 00:27 VBG pO2 141 mmHg (25-40) H 09/15/16 00:27 VBG HCO3 30.1 mEq/L (21-27) H 09/15/16 00:27 Sodium 134 mEq/L (136-145) L 09/19/16 03:40 Calcium 8.1 mg/dL (8.6-10.8) L 09/19/16 03:40 Iron 40 mcg/dL (50-170) L 09/15/16 05:56 % Saturation 10 % (15-50) L 09/15/16 05:56 Total Bilirubin 1.4 mg/dL (0.2-1.2) H 09/15/16 00:27 AST 40 Units/L (5-34) H 09/15/16 00:27 ALT 59 Units/L (0-55) H 09/15/16 00:27 Globulin 3.7 g/dL (2.4-3.5) H 09/15/16 00:27 Albumin/Globulin Ratio 1.0 (1.1-2.2) L 09/15/16 00:27 Folate 6.1 ng/mL (7.0-31.4) L 09/15/16 00:27 TSH 0.178 mcIU/mL (0.350-4.840) L 09/15/16 00:27 Urine Protein 30 mg/dL (Neg-Trace) H 09/15/16 00:37 Urine Glucose (UA) 250 mg/dL (Normal) H 09/15/16 00:37 Urine Blood Trace (Negative) H 09/15/16 00:37 Urine Osmolality 199 mOsm/kg (300-1090) L 09/16/16 15:25 - Microbiology Findings Microbiology Findings: Microbiology, Last 48 Hours 09/16/16 15:40 Sputum Culture - Final Sputum - Clinical Findings Intake & Output: Intake & Output 09/18/16 09/19/16 09/19/16 23:59 07:59 15:59 Intake Total 330 / 330 100 / 100 1304 / 1304 Output Total 150 / 150 450 / 450 150 / 150 Balance 180 / 180 -350 / -350 1154 / 1154 Weight 68.492 kg - VTE Reasons for not Prescribing Prophylaxis: Not indicated-Anticoagulated or INR therapeutic Consult Discharge Plan - Plan Referrals: Madeline Ballard MD [Primary Care Provider] -
[2016-09-19] MEDS ORDERED: Albuterol 2.5 MG/3 ML NEBULIZER IH PRN (15:22)
[2016-09-19] MEDS ORDERED: Furosemide 20 MG/2 ML VIAL IVP ONE (17:41)
[2016-09-19] MEDS ORDERED: *HR* Warfarin 5 MG TABLET PO ONE (18:00)
[2016-09-19] MEDS ORDERED: SODIUM CHLORIDE/NAHCO3/KCL/PEG 4,000 ML SOLN.RECON PO ONE (18:05)
[2016-09-19] MEDS: FentaNYL (PF) 1,000 MCG in 0.9 % Sodium Chloride 80 ML IVC SCH (19:22)
[2016-09-19] MEDS: Heparin 25,000 UNIT/500 ML D5W 25,000 UNIT/500 ML MLS IVC SCH (19:22)
[2016-09-19 20:24] LABS: BUN/Creatinine Ratio 19 (6-26); Blood Urea Nitrogen 16 mg/dL (7-20); Calcium 8.7 mg/dL (8.6-10.8); Carbon Dioxide 25 mEq/L (19-29); Chloride 103 mEq/L (98-109); Glucose 131 mg/dL (70-99); Magnesium 1.9 mg/dL (1.6-2.6); Osmolality,Calculated 283 (280-300); Potassium 4.2 mEq/L (3.5-4.5); Sodium 135 mEq/L (136-145); eGFR For African Americans > 60 (> 60); eGFR For Non-African Americans > 60 (> 60)
[2016-09-20] MEDS: Insulin LISPRO 300 UNITS/3 ML VIAL SQ SCH ×7 (00:11→23:48)
[2016-09-20 04:23] LABS: INR 1.8; Prothrombin Time 19.7 Seconds (9.4-12.1)
[2016-09-20 06:28] LABS: Basophils % 0.4 %; Eosinophils # 0.2 K/mcL (0.0-0.6); Eosinophils % 2.8 %; Hemoglobin 9.2 g/dL (11.5-15.4); Immature Granulocytes % 0.9 % (0-4); Lymphocytes # 1.4 K/mcL (0.6-4.6); Lymphocytes % 18.1 %; Mean Corpuscular HGB Conc 32.9 g/dL (31.6-35.5); Mean Corpuscular Volume 85.1 fL (83.0-100.0); Mean Platelet Volume 9.7 fL (9.4-12.4); Monocytes % 12.6 %; Neutrophils # 4.9 K/mcL (1.6-8.9); Platelet Count 346 K/mcL (140-400); Red Blood Count 3.29 M/mcL (3.82-4.97); Red Cell Distribution Width 13.8 % (11.5-14.5); Segmented Neutrophils % 65.2 %
[2016-09-20 07:03] LABS: Alanine Aminotransferase 29 Units/L (0-55); Albumin 2.6 g/dL (3.5-5.0); Albumin/Globulin Ratio 0.8 (1.1-2.2); Alkaline Phosphatase 84 Units/L (38-126); Aspartate Amino Transferase 28 Units/L (5-34); BUN/Creatinine Ratio 18 (6-26); Bilirubin,Total 1.4 mg/dL (0.2-1.2); Blood Urea Nitrogen 15 mg/dL (7-20); Calcium 8.5 mg/dL (8.6-10.8); Carbon Dioxide 25 mEq/L (19-29); Chloride 103 mEq/L (98-109); Globulin 3.1 g/dL (2.4-3.5); Glucose 122 mg/dL (70-99); Magnesium 1.4 mg/dL (1.6-2.6); Osmolality,Calculated 284 (280-300); Potassium 3.9 mEq/L (3.5-4.5); Sodium 136 mEq/L (136-145); Total Protein 5.7 g/dL (6.0-8.3); eGFR For African Americans > 60 (> 60); eGFR For Non-African Americans > 60 (> 60)
[2016-09-20] MEDS: Vitamin B Complex/Vit C/Vit E 1 EACH TABLET PO SCH (08:32)
[2016-09-20] MEDS: Thiamine (B-1) 100 MG TABLET PO SCH (08:32)
[2016-09-20] MEDS: Folic Acid 1 MG TABLET PO SCH (08:32)
[2016-09-20] MEDS: Chlorhexidine Rinse 15 ML MOUTHWASH MM SCH (08:35)
[2016-09-20] MEDS ORDERED: Aspirin 325 MG TABLET PO SCH (09:00)
[2016-09-20] MEDS: Potassium Chloride 40 MEQ/200 ML BAG IVPB PRN (10:40)
[2016-09-20] MEDS: Magnesium Sulfate 2 GM in D5% in Water 100 ML IVPB PRN (12:05)
--- NOTE | 2016-09-20 12:31 | Gastroenterology Consult Note ---
<Juve Heart Arcenio - Last Filed: 09/20/16 12:28> Date of Encounter: 09/20/16 Time of Encounter: 10:00 - Assessment and plan (1) Colonic mass Current Visit: Yes Status: Acute Assessment and plan: CT A/P showed no bowel obstruction, but did show asymmetric wall thickening in the proximal ascending colon, possible circumferential soft tissue mass concerning for malignancy. Plan for colonoscopy tomorrow. I attempted to call the emergency contact, Kelly Fragososhira, at [phone], for consent for colonoscopy, but there was no answer. Clear liquid diet today, no red or purple. NPO at midnight. If unable tolerate NuLytely please use MiraLAX prep. If not clear by 6 AM, give 2 tap water enemas. If pt unable to tolerate prep, insert soft NG tube. (2) CVA (cerebral vascular accident) Current Visit: Yes Status: Acute Qualifiers: CVA mechanism: unspecified Qualified Code(s): I63.9 - Cerebral infarction, unspecified (3) Aspiration pneumonia due to food (regurgitated) Current Visit: Yes Status: Acute Assessment and plan: Management per primary team. Qualifiers: Laterality: unspecified laterality Lung location: unspecified part of lung Qualified Code(s): J69.0 - Pneumonitis due to inhalation of food and vomit - Time Spent With Patient Total time spent is greater than 50% in coordination of care (as documented) at patient's floor/unit and/or counseling patient: GI History of Present Illness - Data of Consult Patient: new to practice Consult date: 09/20/16 Requesting Physician: Rome Domínguez MD - Consult Narrative Reason for consult: Colonic mass History of present illness: Ms. Garcia is a 81 year old female with PMHx of CVA/TIA, HTN, HLD, Afib on warfarin, DM, COPD, GERD, CAD, CHF who was transferred from [facility] s/ p recent ischemic CVA for evaluation of altered mental status. She was emergently intubated on 09/15 likely secondary to aspiration. CT A/P showed no bowel obstruction, but did show asymmetric wall thickening in the proximal ascending colon, possible circumferential soft tissue mass concerning for malignancy. Pt was unable to answer all questions, but was able to shake her head yes or no. Procedures: None NSAIDs: ASA Anticoagulation: Coumadin Past Med Surg Social Fam HX - Past Medical History Medical history: arthritis, atrial fibrillation, cardiomyopathy, CHF, CVA, diabetes, GERD, hyperlipidemia, hypertension, osteoporosis, peripheral artery disease, thyroid disease, TIA, other Psychiatric history: no psych history, other - Past Surgical History Surgical History: non-contributory, other - Social History Smoking Status: Never smoker Alcohol use: none, unknown Drug use: none, unknown - Gastrointestinal Gastrointestinal: Present: as per HPI - Constitutional Constitutional: as per HPI - EENT Eyes: as per HPI Ears: Present: as per HPI Nose, mouth and throat: Present: as per HPI - Cardiovascular Cardiovascular ROS: Present: as per HPI - Respiratory Respiratory IM: Present: as per HPI - Genitourinary Genitourinary: Absent: change in color, Urinary frequency - Neurological ROS Neurological GI: Present: as per HPI - Hematologic/Lymphatic Hematologic/Lymphatic pediatric: Present: as per HPI - Musculoskeletal Musculoskeletal ROS GI: Present: as per HPI - Integumentary Integumentary GI: Present: as per HPI - Psychiatric ROS Psychiatric GI: Present: as per HPI - Endocrine Endocrine IM: Present: as per HPI - Constitutional Vitals: Temp Pulse Resp BP Pulse Ox 97.8 F 96 14 134/65 97 09/20/16 12:00 09/20/16 12:00 09/20/16 12:00 09/20/16 12:00 09/20/16 12:00 General appearance: Present: cooperative, A&O X 2 - Head Head exam: Present: atraumatic, normocephalic - Eye Eye exam: Present: normal appearance, sclera anicteric - ENT ENT exam: Present: mucous membranes dry - Neck Neck exam general surgery: Present: normal inspection, trachea midline - Respiratory Respiratory exam: Present: decreased breath sounds, CTAB. Absent: rales, rhonchi - Cardiovascular Cardiovascular exam: Present: RRR, +S1, +S2 - GI/Abdominal GI/Abdominal exam: Present: soft, no peritoneal signs. Absent: distended, firm , guarding, tenderness - Rectal Rectal exam: Present: deferred - Extremities Exam Extremities exam: Present: warm - Neurological Exam Neurological exam: Present: no focal deficits - Psychiatric Psychiatric exam: Present: normal affect, normal mood - Skin Skin exam: Present: dry, intact, normal color, warm Results - Labs CBC & Chem 7: 09/20/16 05:33 09/20/16 05:33 Labs: Last Result ESR 44 mm/hr (0-15) H 09/15/16 00:27 Calcium 8.5 mg/dL (8.6-10.8) L 09/20/16 05:33 Iron 40 mcg/dL (50-170) L 09/15/16 05:56 % Saturation 10 % (15-50) L 09/15/16 05:56 Transferrin 285 mg/dL (180-382) 09/15/16 05:56 Troponin I 0.02 ng/mL (0-0.03) 09/15/16 12:36 C-Reactive Protein 1 mg/L (Less than 5) 09/15/16 00:27 Triglycerides 73 mg/dL (< 150) 09/15/16 00:27 Vitamin B12 344 pg/mL (213-816) 09/15/16 00:27 Folate 6.1 ng/mL (7.0-31.4) L 09/15/16 00:27 Gastric Occult Blood Negative (Negative) 09/18/16 03:00 Entire Visit Hgb 9.2 g/dL (11.5-15.4) L 09/20/16 05:33 Hct 28.0 % (35.3-44.9) L 09/20/16 05:33 PT 19.7 Seconds (9.4-12.1) H 09/20/16 04:05 Total Bilirubin 1.4 mg/dL (0.2-1.2) H 09/20/16 05:33 AST 28 Units/L (5-34) 09/20/16 05:33 ALT 29 Units/L (0-55) 09/20/16 05:33 Ammonia 42 mcmol/L (18-72) 09/15/16 05:56 Folate 6.1 ng/mL (7.0-31.4) L 09/15/16 00:27 - ABG ABG results: ABG ABG pH 7.49 pH Units (7.32-7.45) H 09/17/16 07:48 ABG pCO2 32 mmHg (35-45) L 09/17/16 07:48 ABG pO2 113 mmHg (85-104) H 09/17/16 07:48 ABG O2 Saturation 99 % (95-98) H 09/17/16 07:48 PT/INR, D-dimer PT 19.7 Seconds (9.4-12.1) H 09/20/16 04:05 Consult Discharge Plan - Plan Referrals: Madeline Ballard MD [Primary Care Provider] - <Jevon Hopper - Last Filed: 09/20/16 18:34> Date of Encounter: 09/20/16 Time of Encounter: 17:00 - Time Spent With Patient Total time spent is greater than 50% in coordination of care (as documented) at patient's floor/unit and/or counseling patient: GI History of Present Illness - Data of Consult Requesting Physician: Rome Domínguez MD - Consult Narrative History of present illness: Ms. Garcia is a 81 year old female - Constitutional Vitals: Temp Pulse Resp BP Pulse Ox 98.5 F 99 14 167/74 98 09/20/16 16:00 09/20/16 16:00 09/20/16 16:00 09/20/16 16:00 09/20/16 16:00 Results - Labs CBC & Chem 7: 09/20/16 05:33 09/20/16 05:33 Labs: Last Result ESR 44 mm/hr (0-15) H 09/15/16 00:27 Calcium 8.5 mg/dL (8.6-10.8) L 09/20/16 05:33 Iron 40 mcg/dL (50-170) L 09/15/16 05:56 % Saturation 10 % (15-50) L 09/15/16 05:56 Transferrin 285 mg/dL (180-382) 09/15/16 05:56 Troponin I 0.02 ng/mL (0-0.03) 09/15/16 12:36 C-Reactive Protein 1 mg/L (Less than 5) 09/15/16 00:27 Triglycerides 73 mg/dL (< 150) 09/15/16 00:27 Vitamin B12 344 pg/mL (213-816) 09/15/16 00:27 Folate 6.1 ng/mL (7.0-31.4) L 09/15/16 00:27 Gastric Occult Blood Negative (Negative) 09/18/16 03:00 Entire Visit Hgb 9.2 g/dL (11.5-15.4) L 09/20/16 05:33 Hct 28.0 % (35.3-44.9) L 09/20/16 05:33 PT 19.7 Seconds (9.4-12.1) H 09/20/16 04:05 Total Bilirubin 1.4 mg/dL (0.2-1.2) H 09/20/16 05:33 AST 28 Units/L (5-34) 09/20/16 05:33 ALT 29 Units/L (0-55) 09/20/16 05:33 Ammonia 42 mcmol/L (18-72) 09/15/16 05:56 Folate 6.1 ng/mL (7.0-31.4) L 09/15/16 00:27 - ABG ABG results: ABG ABG pH 7.49 pH Units (7.32-7.45) H 09/17/16 07:48 ABG pCO2 32 mmHg (35-45) L 09/17/16 07:48 ABG pO2 113 mmHg (85-104) H 09/17/16 07:48 ABG O2 Saturation 99 % (95-98) H 09/17/16 07:48 PT/INR, D-dimer PT 19.7 Seconds (9.4-12.1) H 09/20/16 04:05 - Attending Attestation I examined this patient and my medical decision-making was reviewed with the [employer]URL[employer] WORKER/PA/Advanced Practice Nurse/Resident Physician. I agree with the documented findings, disposition and treatment plan as described except to the extent set forth below. Patient with the abnormal imaging of the ascending colon. Patient will have colonoscopy done middle of next week once she is more alert and able to tolerate her prep
--- NOTE | 2016-09-20 13:37 | Pulmonology Progress Note ---
Date of Encounter: 09/20/16 Time of Encounter: 13:37 Assessment and Plan (1) Acute respiratory failure with hypoxia Current Visit: Yes Status: Acute Neuropsych: Altered mental status resolving appears to be nearing baseline Pulm: Acute respiratory failure with hypoxia extubated with good saturation on minimal amount of nasal cannula O2 Cardsd: History of atrial fibrillation now rate controlled. History of CVA on Warfarin FEN-GI: Bowel prep given today for lower GI endoscopy to evaluate for colon malignancy Renal: No VELMA acceptable UOP. Baseline hyponatremia (SIADH) which at present is near normal. Monitor daily metabolic profile. ID: The WBC count has normalized. Heme/Onc: H/H stable. No over signs of bleeding. Cont anticoagulation. cont to trend CBC BID. Endo: . Glucose is monitored and sliding scale given for hyperglycemia. Integ/MSK: Continue skin care per ICU protocol to prevent ulcers. CODE: Full Code.. Family (daughter and son-in-law) updated at bedside The patient is appropriate for transfer to [facility] for ongoing care (2) Aspiration pneumonia due to food (regurgitated) Current Visit: Yes Status: Acute Qualifiers: Laterality: unspecified laterality Lung location: unspecified part of lung Qualified Code(s): J69.0 - Pneumonitis due to inhalation of food and vomit (3) CVA (cerebral vascular accident) Current Visit: Yes Status: Acute Qualifiers: CVA mechanism: unspecified Qualified Code(s): I63.9 - Cerebral infarction, unspecified (4) Atrial fibrillation Current Visit: Yes Status: Chronic Qualifiers: Atrial fibrillation type: paroxysmal Qualified Code(s): I48.0 - Paroxysmal atrial fibrillation (5) Hyponatremia with decreased serum osmolality Current Visit: Yes Status: Acute (6) Toxic metabolic encephalopathy Current Visit: Yes Status: Acute Subjective Principal diagnosis: Acute respiratory failure with hypoxia, aspiration pneumonitis Interval history: Extubated did well overnight much more awake following commands today she is hemodynamically stable Objective PUL Vital signs: Last Vital Signs Temp 97.8 F 09/20/16 12:00 Pulse 96 09/20/16 12:00 Resp 14 09/20/16 12:00 BP 134/65 09/20/16 12:00 Pulse Ox 97 09/20/16 12:00 General appearance: no acute distress Auscultation: bilateral: clear Cardiovascular: irregular rhythm Gastrointestinal: non-tender, tender Extremities: no edema non-focal exam, pupils equal and round mood appropriate Results - Laboratory Findings CBC and BMP: 09/20/16 05:33 09/20/16 05:33 ABG ABG pH 7.49 pH Units (7.32-7.45) H 09/17/16 07:48 ABG pCO2 32 mmHg (35-45) L 09/17/16 07:48 ABG pO2 113 mmHg (85-104) H 09/17/16 07:48 ABG O2 Saturation 99 % (95-98) H 09/17/16 07:48 PT/INR, D-dimer PT 19.7 Seconds (9.4-12.1) H 09/20/16 04:05 Abnormal lab findings: Abnormal lab results RBC 3.29 M/mcL (3.82-4.97) L 09/20/16 05:33 Hgb 9.2 g/dL (11.5-15.4) L 09/20/16 05:33 Hct 28.0 % (35.3-44.9) L 09/20/16 05:33 Nucleated RBCs/100 WBC 0.2 /100 WBC (0) H 09/17/16 07:30 ESR 44 mm/hr (0-15) H 09/15/16 00:27 PT 19.7 Seconds (9.4-12.1) H 09/20/16 04:05 APTT 291.7 Seconds (26.0-36.0) H* D 09/18/16 17:40 Heparin Anti-Xa, Unfract 1.13 IU/mL (0.30-0.70) H* 09/18/16 17:40 ABG pH 7.49 pH Units (7.32-7.45) H 09/17/16 07:48 ABG pCO2 32 mmHg (35-45) L 09/17/16 07:48 ABG pO2 113 mmHg (85-104) H 09/17/16 07:48 ABG O2 Saturation 99 % (95-98) H 09/17/16 07:48 VBG pH 7.53 pH Units (7.32-7.42) H 09/15/16 00:27 VBG pCO2 36 mmHg (41-51) L 09/15/16 00:27 VBG pO2 141 mmHg (25-40) H 09/15/16 00:27 VBG HCO3 30.1 mEq/L (21-27) H 09/15/16 00:27 Glucose 122 mg/dL (70-99) H 09/20/16 05:33 POC Glucose 120 (58-89) H 09/20/16 00:00 Calcium 8.5 mg/dL (8.6-10.8) L 09/20/16 05:33 Magnesium 1.4 mg/dL (1.6-2.6) L 09/20/16 05:33 Iron 40 mcg/dL (50-170) L 09/15/16 05:56 % Saturation 10 % (15-50) L 09/15/16 05:56 Total Bilirubin 1.4 mg/dL (0.2-1.2) H 09/20/16 05:33 Serum Total Protein 5.7 g/dL (6.0-8.3) L 09/20/16 05:33 Albumin 2.6 g/dL (3.5-5.0) L 09/20/16 05:33 Albumin/Globulin Ratio 0.8 (1.1-2.2) L 09/20/16 05:33 Folate 6.1 ng/mL (7.0-31.4) L 09/15/16 00:27 TSH 0.178 mcIU/mL (0.350-4.840) L 09/15/16 00:27 Urine Protein 30 mg/dL (Neg-Trace) H 09/15/16 00:37 Urine Glucose (UA) 250 mg/dL (Normal) H 09/15/16 00:37 Urine Blood Trace (Negative) H 09/15/16 00:37 Urine Osmolality 199 mOsm/kg (300-1090) L 09/16/16 15:25 - Microbiology Findings Microbiology Findings: Microbiology, Last 48 Hours 09/16/16 15:40 Sputum Culture - Final Sputum - Clinical Findings Intake & Output: Intake & Output 09/19/16 09/20/16 09/20/16 23:59 07:59 15:59 Intake Total 500 / 500 Output Total 1900 / 1900 1150 / 1150 375 / 375 Balance -1400 / -1400 -1150 / -1150 -375 / -375 - VTE Reasons for not Prescribing Prophylaxis: Not indicated-Anticoagulated or INR therapeutic Consult Discharge Plan - Plan Referrals: Madeline Ballard MD [Primary Care Provider] -
[2016-09-20] MEDS ORDERED: Dextrose Gel 15 GM PO PRN ×2 (16:07)
[2016-09-20] MEDS ORDERED: Calcium Gluconate 1,000 MG in D5% in Water 100 ML IVPB PRN (16:07)
[2016-09-20] MEDS ORDERED: D5% in Water 1,000 ML IVC PRN (16:07)
[2016-09-20] MEDS ORDERED: Warfarin perPT PO PRN (16:07)
[2016-09-20] MEDS ORDERED: Magnesium Sulfate 2 GM in D5% in Water 100 ML IVPB PRN (16:07)
[2016-09-20] MEDS ORDERED: *HR* Morphine 2 MG/ML SYRINGE IVP PRN (16:07)
[2016-09-20] MEDS ORDERED: *HR* OxyCODONE Immed Rel 5 MG TABLET PO PRN (16:07)
[2016-09-20] MEDS ORDERED: Ondansetron 4 MG/2 ML VIAL IVP PRN (16:07)
[2016-09-20] MEDS ORDERED: Bisacodyl 10 MG RECTAL SUPPOSITORY RC PRN (16:07)
[2016-09-20] MEDS ORDERED: Naloxone 0.4 MG/ML INJ IVP PRN (16:07)
[2016-09-20] MEDS ORDERED: *HR* LORazepam 2 MG/ML VIAL IVP PRN (16:07)
[2016-09-20] MEDS ORDERED: Acetaminophen 325 MG TABLET PO PRN (16:07)
[2016-09-20] MEDS ORDERED: *HR* Metoprolol 5 MG/5 ML VIAL IVP PRN (16:07)
[2016-09-20] MEDS ORDERED: *HR* Dextrose 50 % in Water (Syg) 50 ML SYRINGE IVP PRN (16:07)
[2016-09-20] MEDS ORDERED: Albuterol 2.5 MG/3 ML NEBULIZER IH PRN (16:07)
[2016-09-20] MEDS ORDERED: Potassium Phosphate 44 MEQ in 0.9 % Sodium Chloride 250 ML IVPB PRN (16:07)
[2016-09-20] MEDS ORDERED: Potassium Chloride 40 MEQ/200 ML BAG IVPB PRN (16:07)
[2016-09-20] MEDS ORDERED: Sodium Phosphate 30 MMOL in D5% in Water 100 ML IVPB PRN (16:07)
[2016-09-20] MEDS ORDERED: SODIUM CHLORIDE/NAHCO3/KCL/PEG 4,000 ML SOLN.RECON PO ONE (17:00)
[2016-09-20] MEDS: SODIUM CHLORIDE/NAHCO3/KCL/PEG 4,000 ML SOLN.RECON PO ONE ×2 (17:17→20:34)
[2016-09-20] MEDS ORDERED: *HR* Warfarin 2.5 MG TABLET PO SCH ×2 (18:00)
[2016-09-20] MEDS ORDERED: Chlorhexidine Rinse 15 ML MOUTHWASH MM SCH (21:00)
[2016-09-21 03:37] LABS: Basophils % 0.4 %; Eosinophils # 0.2 K/mcL (0.0-0.6); Eosinophils % 2.7 %; Hemoglobin 10.1 g/dL (11.5-15.4); Immature Granulocytes % 0.6 % (0-4); Lymphocytes # 1.7 K/mcL (0.6-4.6); Lymphocytes % 18.9 %; Mean Corpuscular HGB Conc 32.6 g/dL (31.6-35.5); Mean Corpuscular Hemoglobin 28.4 pg (28.0-33.3); Mean Corpuscular Volume 87.1 fL (83.0-100.0); Mean Platelet Volume 9.5 fL (9.4-12.4); Monocytes # 1.4 K/mcL (0.0-1.3); Monocytes % 15.5 %; Neutrophils # 5.5 K/mcL (1.6-8.9); Platelet Count 379 K/mcL (140-400); Red Blood Count 3.56 M/mcL (3.82-4.97); Red Cell Distribution Width 13.9 % (11.5-14.5); Segmented Neutrophils % 61.9 %
[2016-09-21 03:41] LABS: INR 2.2; Prothrombin Time 24.8 Seconds (9.4-12.1)
[2016-09-21 03:52] LABS: BUN/Creatinine Ratio 19 (6-26); Blood Urea Nitrogen 15 mg/dL (7-20); Calcium 8.8 mg/dL (8.6-10.8); Carbon Dioxide 22 mEq/L (19-29); Chloride 104 mEq/L (98-109); Glucose 98 mg/dL (70-99); Osmolality,Calculated 283 (280-300); Potassium 3.8 mEq/L (3.5-4.5); Sodium 136 mEq/L (136-145); eGFR For African Americans > 60 (> 60); eGFR For Non-African Americans > 60 (> 60)
[2016-09-21] MEDS: Insulin LISPRO 300 UNITS/3 ML VIAL SQ SCH ×4 (04:32→21:49)
--- NOTE | 2016-09-21 08:11 | Pulmonology Progress Note ---
Date of Encounter: 09/21/16 Time of Encounter: 08:11 Assessment and Plan (1) Acute respiratory failure with hypoxia Current Visit: Yes Status: Acute Neuropsych: She is awake and alert today appears to have mild delirium I will try to avoid RIVET [employer]ROWER depressing medications as much as possible reestablish sleep- wake cycle Pulm: Acute respiratory failure s/t to aspiration resolving with good saturation on minimal amount of nasal cannula O2 Cardsd: History of atrial fibrillation with increasing heart rate I am increasing the dose of her beta nikky (Coreg) FEN-GI: She has been seen by speech therapy and has aspiration precautions with her diet. Has a colonic mass that we will need evaluation with colonoscopy however this will be deferred until patient's a little more stable given aspiration risk. I appreciate the gastroenterology service following this patient with us Renal: No VELMA acceptable UOP. History of chronic SIADH. Sodium has been relatively normal over the last few days ID: The WBC count has normalized. Heme/Onc: H/H stable. Warfarin restarted checking INR today Endo: . Glucose is monitored and sliding scale given for hyperglycemia. Integ/MSK: Continue skin care per ICU protocol to prevent ulcers. CODE: Full Code. Stable for transfer to [facility] telemetry (2) Aspiration pneumonia due to food (regurgitated) Current Visit: Yes Status: Acute Qualifiers: Laterality: unspecified laterality Lung location: unspecified part of lung Qualified Code(s): J69.0 - Pneumonitis due to inhalation of food and vomit (3) CVA (cerebral vascular accident) Current Visit: Yes Status: Acute Qualifiers: CVA mechanism: unspecified Qualified Code(s): I63.9 - Cerebral infarction, unspecified (4) Atrial fibrillation Current Visit: Yes Status: Chronic Qualifiers: Atrial fibrillation type: paroxysmal Qualified Code(s): I48.0 - Paroxysmal atrial fibrillation (5) Hyponatremia with decreased serum osmolality Current Visit: Yes Status: Acute (6) Toxic metabolic encephalopathy Current Visit: Yes Status: Acute Subjective Principal diagnosis: Acute respiratory failure with hypoxia, aspiration pneumonitis Interval history: Comfortable still having perception of shortness of breath but saturations have been quite acceptable on very minimal supplemental oxygen. She continues to be disoriented but is able to communicate with me and follow commands. Otherwise hemodynamically stable heart rate and blood pressure are trending up Objective PUL Vital signs: Last Vital Signs Temp 98.3 F 09/21/16 07:41 Pulse 112 09/21/16 07:00 Resp 20 09/21/16 03:10 BP 141/79 09/21/16 03:10 Pulse Ox 99 09/21/16 03:10 General appearance: no acute distress, other (She is noted to reach out and focus on a "cut" on her finger although there is no cut that I can see) Auscultation: bilateral: clear Cardiovascular: irregular rhythm Gastrointestinal: normoactive bowel sounds, non-tender Extremities: no edema non-focal exam, pupils equal and round mood appropriate Results - Laboratory Findings CBC and BMP: 09/21/16 03:28 09/21/16 03:28 ABG ABG pH 7.49 pH Units (7.32-7.45) H 09/17/16 07:48 ABG pCO2 32 mmHg (35-45) L 09/17/16 07:48 ABG pO2 113 mmHg (85-104) H 09/17/16 07:48 ABG O2 Saturation 99 % (95-98) H 09/17/16 07:48 PT/INR, D-dimer PT 24.8 Seconds (9.4-12.1) H 09/21/16 03:28 Abnormal lab findings: Abnormal lab results RBC 3.56 M/mcL (3.82-4.97) L 09/21/16 03:28 Hgb 10.1 g/dL (11.5-15.4) L 09/21/16 03:28 Hct 31.0 % (35.3-44.9) L 09/21/16 03:28 Monocytes # 1.4 K/mcL (0.0-1.3) H 09/21/16 03:28 Nucleated RBCs/100 WBC 0.2 /100 WBC (0) H 09/17/16 07:30 ESR 44 mm/hr (0-15) H 09/15/16 00:27 PT 24.8 Seconds (9.4-12.1) H 09/21/16 03:28 APTT 291.7 Seconds (26.0-36.0) H* D 09/18/16 17:40 Heparin Anti-Xa, Unfract 1.13 IU/mL (0.30-0.70) H* 09/18/16 17:40 ABG pH 7.49 pH Units (7.32-7.45) H 09/17/16 07:48 ABG pCO2 32 mmHg (35-45) L 09/17/16 07:48 ABG pO2 113 mmHg (85-104) H 09/17/16 07:48 ABG O2 Saturation 99 % (95-98) H 09/17/16 07:48 VBG pH 7.53 pH Units (7.32-7.42) H 09/15/16 00:27 VBG pCO2 36 mmHg (41-51) L 09/15/16 00:27 VBG pO2 141 mmHg (25-40) H 09/15/16 00:27 VBG HCO3 30.1 mEq/L (21-27) H 09/15/16 00:27 POC Glucose 107 (58-89) H 09/20/16 23:43 Magnesium 1.4 mg/dL (1.6-2.6) L 09/20/16 05:33 Iron 40 mcg/dL (50-170) L 09/15/16 05:56 % Saturation 10 % (15-50) L 09/15/16 05:56 Total Bilirubin 1.4 mg/dL (0.2-1.2) H 09/20/16 05:33 Serum Total Protein 5.7 g/dL (6.0-8.3) L 09/20/16 05:33 Albumin 2.6 g/dL (3.5-5.0) L 09/20/16 05:33 Albumin/Globulin Ratio 0.8 (1.1-2.2) L 09/20/16 05:33 Folate 6.1 ng/mL (7.0-31.4) L 09/15/16 00:27 TSH 0.178 mcIU/mL (0.350-4.840) L 09/15/16 00:27 Urine Protein 30 mg/dL (Neg-Trace) H 09/15/16 00:37 Urine Glucose (UA) 250 mg/dL (Normal) H 09/15/16 00:37 Urine Blood Trace (Negative) H 09/15/16 00:37 Urine Osmolality 199 mOsm/kg (300-1090) L 09/16/16 15:25 - Microbiology Findings Microbiology Findings: Microbiology, Last 48 Hours 09/16/16 15:40 Sputum Culture - Final Sputum - Clinical Findings Intake & Output: Intake & Output 09/20/16 09/21/16 09/21/16 23:59 07:59 15:59 Intake Total 0 / 0 0 / 0 Output Total 150 / 150 350 / 350 Balance -150 / -150 -350 / -350 Weight 68 kg - VTE Reasons for not Prescribing Prophylaxis: Not indicated-Anticoagulated or INR therapeutic Consult Discharge Plan - Plan Referrals: Madeline Ballard MD [Primary Care Provider] -
[2016-09-21] MEDS ORDERED: Potassium Chloride 40 MEQ/200 ML BAG IVPB PRN (08:53)
[2016-09-21] MEDS ORDERED: Naloxone 0.4 MG/ML INJ IVP PRN (08:53)
[2016-09-21] MEDS ORDERED: Bisacodyl 10 MG RECTAL SUPPOSITORY RC PRN (08:53)
[2016-09-21] MEDS ORDERED: Acetaminophen 325 MG TABLET PO PRN (08:53)
[2016-09-21] MEDS ORDERED: Sodium Phosphate 30 MMOL in D5% in Water 100 ML IVPB PRN (08:53)
[2016-09-21] MEDS ORDERED: *HR* Morphine 2 MG/ML SYRINGE IVP PRN (08:53)
[2016-09-21] MEDS ORDERED: Dextrose Gel 15 GM PO PRN ×2 (08:53)
[2016-09-21] MEDS ORDERED: Albuterol 2.5 MG/3 ML NEBULIZER IH PRN (08:53)
[2016-09-21] MEDS ORDERED: Potassium Phosphate 44 MEQ in 0.9 % Sodium Chloride 250 ML IVPB PRN (08:53)
[2016-09-21] MEDS ORDERED: *HR* Dextrose 50 % in Water (Syg) 50 ML SYRINGE IVP PRN (08:53)
[2016-09-21] MEDS ORDERED: *HR* Metoprolol 5 MG/5 ML VIAL IVP PRN (08:53)
[2016-09-21] MEDS ORDERED: Magnesium Sulfate 2 GM in D5% in Water 100 ML IVPB PRN (08:53)
[2016-09-21] MEDS ORDERED: D5% in Water 1,000 ML IVC PRN (08:53)
[2016-09-21] MEDS ORDERED: Warfarin perPT PO PRN (08:53)
[2016-09-21] MEDS ORDERED: Ondansetron 4 MG/2 ML VIAL IVP PRN (08:53)
[2016-09-21] MEDS ORDERED: *HR* LORazepam 2 MG/ML VIAL IVP PRN (08:53)
[2016-09-21] MEDS ORDERED: Calcium Gluconate 1,000 MG in D5% in Water 100 ML IVPB PRN (08:53)
[2016-09-21] MEDS ORDERED: *HR* OxyCODONE Immed Rel 5 MG TABLET PO PRN (08:53)
[2016-09-21] MEDS ORDERED: Folic Acid 1 MG TABLET PO SCH (09:00)
[2016-09-21] MEDS ORDERED: Aspirin 325 MG TABLET PO SCH ×2 (09:00)
[2016-09-21] MEDS ORDERED: Vitamin B Complex/Vit C/Vit E 1 EACH TABLET PO SCH (09:00)
[2016-09-21] MEDS ORDERED: Thiamine (B-1) 100 MG TABLET PO SCH (09:00)
[2016-09-21] MEDS: Thiamine (B-1) 100 MG TABLET PO SCH (09:22)
[2016-09-21] MEDS: Vitamin B Complex/Vit C/Vit E 1 EACH TABLET PO SCH (09:22)
[2016-09-21] MEDS: Chlorhexidine Rinse 15 ML MOUTHWASH MM SCH ×2 (09:22→21:50)
[2016-09-21] MEDS: Folic Acid 1 MG TABLET PO SCH (09:22)
--- NOTE | 2016-09-21 17:05 | Event Note ---
Date of Encounter: 09/21/16 Time of Encounter: 14:30 The patient was discussed with the admitting hospitalist Dr. Prieto who accepted the patient for transfer to a med/tele bed in stable condition.
[2016-09-21] MEDS: *HR* Warfarin 2.5 MG TABLET PO SCH (18:16)
[2016-09-22] MEDS: Insulin LISPRO 300 UNITS/3 ML VIAL SQ SCH ×7 (01:19→21:55)
[2016-09-22 06:21] LABS: Basophils % 0.4 %; Eosinophils # 0.2 K/mcL (0.0-0.6); Hematocrit 30.4 % (35.3-44.9); Immature Granulocytes % 0.9 % (0-4); Lymphocytes # 1.8 K/mcL (0.6-4.6); Lymphocytes % 22.4 %; Mean Corpuscular HGB Conc 32.9 g/dL (31.6-35.5); Mean Corpuscular Hemoglobin 28.3 pg (28.0-33.3); Mean Corpuscular Volume 86.1 fL (83.0-100.0); Mean Platelet Volume 9.9 fL (9.4-12.4); Monocytes % 13.1 %; Neutrophils # 4.8 K/mcL (1.6-8.9); Platelet Count 318 K/mcL (140-400); Red Blood Count 3.53 M/mcL (3.82-4.97); Red Cell Distribution Width 13.9 % (11.5-14.5); Segmented Neutrophils % 60.2 %
[2016-09-22 06:24] LABS: INR 2.3; Prothrombin Time 25.5 Seconds (9.4-12.1)
[2016-09-22 06:35] LABS: BUN/Creatinine Ratio 20 (6-26); Blood Urea Nitrogen 20 mg/dL (7-20); Calcium 8.8 mg/dL (8.6-10.8); Carbon Dioxide 24 mEq/L (19-29); Chloride 103 mEq/L (98-109); Glucose 147 mg/dL (70-99); Osmolality,Calculated 283 (280-300); Potassium 4.3 mEq/L (3.5-4.5); Sodium 134 mEq/L (136-145); eGFR For African Americans > 60 (> 60); eGFR For Non-African Americans 54 (> 60)
[2016-09-22] MEDS: Vitamin B Complex/Vit C/Vit E 1 EACH TABLET PO SCH (07:48)
[2016-09-22] MEDS: Thiamine (B-1) 100 MG TABLET PO SCH (07:49)
[2016-09-22] MEDS: Folic Acid 1 MG TABLET PO SCH (07:49)
[2016-09-22] MEDS: Aspirin 81 MG TAB.CHEW PO SCH (07:49)
[2016-09-22] MEDS: Chlorhexidine Rinse 15 ML MOUTHWASH MM SCH ×2 (07:49→21:55)
--- NOTE | 2016-09-22 10:21 | Internal Med Progress Note ---
<Ghanshyam Toro - Last Filed: 09/22/16 11:13> Date of Encounter: 09/22/16 Time of Encounter: 10:21 - Assessment and plan (1) Acute respiratory failure with hypoxia Current Visit: Yes Status: Acute Assessment and plan: Patient admitted with acute hypoxic respiratory failure secondary to aspiration versus pneumonitis. She was intubated in the ICU transferred yesterday evening to the general medical floor after stabilization. She was admitted on 2016 and intubated the same day. Extubated on 09/20/2016. - Oxygen saturations are 100% on 2 L nasal cannula - Lung examination is clear to auscultation all lung brennan Plan: - Continue breathing treatments when necessary - Patient to use bedside spirometer - Continue working with physical therapy - Good candidate for discharge to ECF for SNF over the weekend. (2) Colonic mass Current Visit: Yes Status: Acute Assessment and plan: Colonic mass visualized on CT of the abdomen and pelvis. Gastroenterology is currently involved. Patient denies any blood per rectum or discomfort with bowel movements. - Patient will need colonoscopy for further evaluation. (3) Hyponatremia Current Visit: Yes Status: Acute Assessment and plan: Patient has a history of chronic SIADH with hyponatremia baseline around 127. Sodium level over the last 5 days has been in the 130s. Patient currently stable. - Continue to monitor. (4) Atrial fibrillation Current Visit: Yes Status: Chronic Assessment and plan: Heart rate irregularly irregular with controlled rates. Patient on warfarin therapy 2.5 mg by mouth daily at home. - Patient continued on warfarin therapy with therapeutic INR. - Continue cardiac monitoring - Continue Coreg 12.5 mg by mouth twice a day Qualifiers: Atrial fibrillation type: paroxysmal Qualified Code(s): I48.0 - Paroxysmal atrial fibrillation (5) Frail elderly Current Visit: Yes Status: Acute Assessment and plan: Patient currently decompensated after recent illness and intubation. Patient will require ECF/SNF post discharge. (6) HTN (hypertension) Current Visit: Yes Status: Acute Assessment and plan: She has a known history of hypertension. Systolic blood pressure 165 this morning - Continue Coreg 12.5 mg by mouth twice a day - Restart amlodipine home dose. Qualifiers: Qualified Code(s): I10 - Essential (primary) hypertension (7) Hypothyroidism Current Visit: Yes Status: Acute Assessment and plan: Continue home dose of levothyroxine 100 g daily Qualifiers: Qualified Code(s): E03.9 - Hypothyroidism, unspecified (8) Congestive heart failure (CHF) Current Visit: Yes Status: Acute Assessment and plan: Patient has a known history of diastolic heart failure current echocardiogram demonstrates LVEF of 55-60% and mild concentric left ventricular hypertrophy, indeterminant diastolic function due to atrial fibrillation, normal right ventricular size and function, mild dilated left atrium, mild dilated right atrium, no evidence of intracardiac shunting with agitated saline, moderate calcified mitral valve annulus and so valvular apparatus. Mildly thickened mitral valve leaflets. There is restricted motion of the posterior mitral valve leaflet. Moderate severe mitral regurgitation. Mild aortic stenosis. [id number] aortic regurgitation. Moderate tricuspid regurgitation. Severe pulmonary hypertension. - Currently euvolemic - Continue aspirin, Coreg, simvastatin Qualifiers: Congestive heart failure type: diastolic Qualified Code(s): I50.30 - Unspecified diastolic (congestive) heart failure (9) Type 2 diabetes mellitus Current Visit: Yes Status: Acute Assessment and plan: Patient is a known type II diabetic on glipizide at home. Glucoses are currently controlled Plan: Continue before meals at bedtime glucose checks Continue low-dose insulin sliding scale adjustments as necessary. Qualifiers: Diabetes mellitus complication status: without complication Qualified Code( s): E11.9 - Type 2 diabetes mellitus without complications - Subjective Interval history: Mrs. Garcia 81-year-old female has been seen and evaluated the patient bedside this morning. She is laying in bed resting and in no acute distress she said that she is feeling good this morning better than she did upon arrival. She said she feels almost back to normal but is not there yet. She still feels very tired but denies any shortness of breath, chest pain, palpitation she does have an occasional cough but nonproductive. She denies abdominal pain or abdominal bloating tenderness constipation or diarrhea she did have a bowel movement yesterday. She denies any other concerns and she is willing to work with physical therapy to improve her strength. - Constitutional Vitals: Temp Pulse Resp BP Pulse Ox 97.0 F L 95 16 164/92 100 09/22/16 07:00 09/22/16 07:45 09/22/16 07:00 09/22/16 07:00 09/22/16 07:00 General appearance: Present: cachectic, cooperative, A&O X 2, no acute distress , answers questions appropriately - Head Head exam: Present: atraumatic, normocephalic - Eye Eye exam: Present: conjuntiva pink, sclera anicteric - Neck Neck exam general surgery: Present: supple, trachea midline. Absent: lymphadenopathy - Respiratory Respiratory exam: Present: CTAB. Absent: accessory muscle use, rales, rhonchi, wheezes - Cardiovascular Cardiovascular exam: Present: RRR, systolic murmur. Absent: diastolic murmur, gallop, rubs Additional comments: She has a grade 2 systolic ejection murmur- holosystolic - GI/Abdominal GI/Abdominal exam: Present: normal bowel sounds, soft, no peritoneal signs. Absent: distended, tenderness - Extremities Exam Extremities exam: Present: warm, radial pulses palpable and symetrical. Absent : calf tenderness, cyanotic, pedal edema - Neurological Exam Neurological exam: Present: alert, oriented X3, no focal deficits. Absent: pronater drift, facial droop, speech deficit - Psychiatric Psychiatric exam: Present: normal affect, normal mood Internal Medicine: Result - Labs CBC & Chem 7: 09/22/16 06:08 09/22/16 06:08 Labs: Short CBC 09/22/16 Range/Units 06:08 WBC 8.0 (4.3-11.1) K/mcL Hgb 10.0 L (11.5-15.4) g/dL Hct 30.4 L (35.3-44.9) % Plt Count 318 (140-400) K/mcL Neutrophils # 4.8 (1.6-8.9) K/mcL BMP 09/22/16 06:08 Sodium 134 L Potassium 4.3 Chloride 103 Carbon Dioxide 24 BUN 20 Creatinine 0.98 Glucose 147 H Calcium 8.8 - ABG Interpretation ABG results: ABG ABG pH 7.49 pH Units (7.32-7.45) H 09/17/16 07:48 ABG pCO2 32 mmHg (35-45) L 09/17/16 07:48 ABG pO2 113 mmHg (85-104) H 09/17/16 07:48 ABG O2 Saturation 99 % (95-98) H 09/17/16 07:48 PT/INR, D-dimer PT 25.5 Seconds (9.4-12.1) H 09/22/16 06:08 - Impressions Impressions Videofluoroscopic Swallow 09/20/16 08:23 IMPRESSION: Swallowing mechanism grossly within normal limits without evidence of aspiration. Please see separate speech pathology report for full discussion of findings and recommendations. D/ / Paul Kohli MD / Paul Kohli MD Interpreting Provider: Paul Kohli MD - VTE Reasons for not Prescribing Prophylaxis: Not indicated-Anticoagulated or INR therapeutic Consult Discharge Plan - Plan Referrals: Madeline Ballard MD [Primary Care Provider] - <KatharinaOjAleks - Last Filed: 09/22/16 16:56> Date of Encounter: 09/22/16 - Constitutional Vitals: Temp Pulse Resp BP Pulse Ox 98.2 F 71 16 142/79 97 09/22/16 14:20 09/22/16 14:20 09/22/16 14:20 09/22/16 14:20 09/22/16 14:20 Internal Medicine: Result - Labs CBC & Chem 7: 09/22/16 06:08 09/22/16 06:08 Labs: Short CBC 09/22/16 Range/Units 06:08 WBC 8.0 (4.3-11.1) K/mcL Hgb 10.0 L (11.5-15.4) g/dL Hct 30.4 L (35.3-44.9) % Plt Count 318 (140-400) K/mcL Neutrophils # 4.8 (1.6-8.9) K/mcL BMP 09/22/16 06:08 Sodium 134 L Potassium 4.3 Chloride 103 Carbon Dioxide 24 BUN 20 Creatinine 0.98 Glucose 147 H Calcium 8.8 - ABG Interpretation ABG results: ABG ABG pH 7.49 pH Units (7.32-7.45) H 09/17/16 07:48 ABG pCO2 32 mmHg (35-45) L 09/17/16 07:48 ABG pO2 113 mmHg (85-104) H 09/17/16 07:48 ABG O2 Saturation 99 % (95-98) H 09/17/16 07:48 PT/INR, D-dimer PT 25.5 Seconds (9.4-12.1) H 09/22/16 06:08 - Attending Attestation I examined this patient and my medical decision-making was reviewed with the Resident Physician, Dr Toro. I agree with the documented findings, disposition and treatment plan as described except to the extent set forth below. Patient cannot provide history due to encephalopathy. She is ill appearing and somnolent but in no acute distress. Heart exam reveals irregularly irregular S1 and S2 and a systolic murmur. Abdomen is soft. Plan: PT and OT evaluation due to profound deconditioning advanced age and recent CVA. Continue with Coumadin for A. fib. Check daily INR.
[2016-09-22] MEDS: amLODIPine 5 MG TABLET PO SCH (11:57)
[2016-09-22] MEDS: *HR* Warfarin 2.5 MG TABLET PO SCH (17:01)
[2016-09-23] MEDS: Insulin LISPRO 300 UNITS/3 ML VIAL SQ SCH ×5 (00:32→21:41)
[2016-09-23 04:36] LABS: Hematocrit 26.7 % (35.3-44.9); Hemoglobin 8.7 g/dL (11.5-15.4); Immature Granulocytes % 1.4 % (0-4); Mean Corpuscular HGB Conc 32.6 g/dL (31.6-35.5); Mean Corpuscular Hemoglobin 27.9 pg (28.0-33.3); Mean Corpuscular Volume 85.6 fL (83.0-100.0); Mean Platelet Volume 9.5 fL (9.4-12.4); Platelet Count 412 K/mcL (140-400); Red Blood Count 3.12 M/mcL (3.82-4.97); Red Cell Distribution Width 13.9 % (11.5-14.5); Segmented Neutrophils % 54.9 %
[2016-09-23 04:37] LABS: Basophils % 0.3 %; Eosinophils # 0.3 K/mcL (0.0-0.6); Eosinophils % 4.2 %; Lymphocytes # 1.9 K/mcL (0.6-4.6); Monocytes % 13.2 %
[2016-09-23 04:53] LABS: Alanine Aminotransferase 21 Units/L (0-55); Albumin 2.7 g/dL (3.5-5.0); Alkaline Phosphatase 77 Units/L (38-126); Aspartate Amino Transferase 25 Units/L (5-34); BUN/Creatinine Ratio 21 (6-26); Bilirubin,Total 0.6 mg/dL (0.2-1.2); Blood Urea Nitrogen 22 mg/dL (7-20); Calcium 8.6 mg/dL (8.6-10.8); Carbon Dioxide 28 mEq/L (19-29); Chloride 100 mEq/L (98-109); Globulin 2.8 g/dL (2.4-3.5); Glucose 94 mg/dL (70-99); Osmolality,Calculated 279 (280-300); Potassium 3.7 mEq/L (3.5-4.5); Sodium 133 mEq/L (136-145); Total Protein 5.5 g/dL (6.0-8.3); eGFR For African Americans > 60 (> 60); eGFR For Non-African Americans 51 (> 60)
[2016-09-23] MEDS: Aspirin 81 MG TAB.CHEW PO SCH (08:39)
[2016-09-23] MEDS: Chlorhexidine Rinse 15 ML MOUTHWASH MM SCH (08:39)
[2016-09-23] MEDS: Thiamine (B-1) 100 MG TABLET PO SCH (08:40)
[2016-09-23] MEDS: amLODIPine 5 MG TABLET PO SCH (08:40)
[2016-09-23] MEDS: Folic Acid 1 MG TABLET PO SCH (08:40)
[2016-09-23] MEDS: Vitamin B Complex/Vit C/Vit E 1 EACH TABLET PO SCH (08:40)
--- NOTE | 2016-09-23 10:37 | Internal Med Progress Note ---
<Ghanshyam Toro - Last Filed: 09/23/16 10:42> Date of Encounter: 09/23/16 Time of Encounter: 10:35 - Assessment and plan (1) Acute respiratory failure with hypoxia Current Visit: Yes Status: Acute Assessment and plan: Patient admitted with acute hypoxic respiratory failure secondary to aspiration versus pneumonitis. She was intubated in the ICU transferred yesterday evening to the general medical floor after stabilization. She was admitted on 2016 and intubated the same day. Extubated on 09/20/2016. - Oxygen saturations are 100% on 2 L nasal cannula - Lung examination is clear to auscultation all lung brennan Plan: - Continue breathing treatments when necessary - Patient to use bedside spirometer - Continue working with physical therapy - Good candidate for discharge to ECF for SNF (2) Colonic mass Current Visit: Yes Status: Acute Assessment and plan: Colonic mass visualized on CT of the abdomen and pelvis. Gastroenterology is currently involved. Patient denies any blood per rectum or discomfort with bowel movements. - Patient will need colonoscopy for further evaluation. - We will obtain stool occult as there was a slight drop in patient's hemoglobin from 10-8.7 - I spoke with gastroenterology Dr. Hopper who recommended giving her Dulcolax now , MiraLAX Gatorade and clear liquid diet for prep for tomorrow's colonoscopy. (3) Hyponatremia Current Visit: Yes Status: Acute Assessment and plan: Patient has a history of chronic SIADH with hyponatremia baseline around 127. Sodium level over the last 6 days has been in the 130s. Patient currently stable. - Continue to monitor. (4) Atrial fibrillation Current Visit: Yes Status: Chronic Assessment and plan: Heart rate irregularly irregular with controlled rates. Patient on warfarin therapy 2.5 mg by mouth daily at home. - Patient continued on warfarin therapy with therapeutic INR. - Continue cardiac monitoring - Continue Coreg 12.5 mg by mouth twice a day Qualifiers: Atrial fibrillation type: paroxysmal Qualified Code(s): I48.0 - Paroxysmal atrial fibrillation (5) Frail elderly Current Visit: Yes Status: Acute Assessment and plan: Patient currently decompensated after recent illness and intubation. Patient will require ECF/SNF post discharge. (6) HTN (hypertension) Current Visit: Yes Status: Acute Assessment and plan: She has a known history of hypertension. Systolic blood pressure 165 this morning - Continue Coreg 12.5 mg by mouth twice a day - Restart amlodipine home dose. Qualifiers: Qualified Code(s): I10 - Essential (primary) hypertension (7) Hypothyroidism Current Visit: Yes Status: Acute Assessment and plan: Continue home dose of levothyroxine 100 g daily Qualifiers: Qualified Code(s): E03.9 - Hypothyroidism, unspecified (8) Congestive heart failure (CHF) Current Visit: Yes Status: Acute Assessment and plan: Patient has a known history of diastolic heart failure current echocardiogram demonstrates LVEF of 55-60% and mild concentric left ventricular hypertrophy, indeterminant diastolic function due to atrial fibrillation, normal right ventricular size and function, mild dilated left atrium, mild dilated right atrium, no evidence of intracardiac shunting with agitated saline, moderate calcified mitral valve annulus and so valvular apparatus. Mildly thickened mitral valve leaflets. There is restricted motion of the posterior mitral valve leaflet. Moderate severe mitral regurgitation. Mild aortic stenosis. [id number]-gchrkxlo aortic regurgitation. Moderate tricuspid regurgitation. Severe pulmonary hypertension. - Currently euvolemic - Continue aspirin, Coreg, simvastatin Qualifiers: Congestive heart failure type: diastolic Qualified Code(s): I50.30 - Unspecified diastolic (congestive) heart failure (9) Type 2 diabetes mellitus Current Visit: Yes Status: Acute Assessment and plan: Patient is a known type II diabetic on glipizide at home. Glucoses are currently controlled Plan: Continue before meals at bedtime glucose checks Continue low-dose insulin sliding scale adjustments as necessary. Qualifiers: Diabetes mellitus complication status: without complication Qualified Code( s): E11.9 - Type 2 diabetes mellitus without complications (10) Anemia Current Visit: Yes Status: Acute Assessment and plan: Chronic anemia but dropped from 10-8.7 overnight. Acute anemia may be secondary to colonic mass. We will hold anticoagulation, patient undergo colonoscopy tomorrow. Qualifiers: Qualified Code(s): D64.9 - Anemia, unspecified - Subjective Interval history: Mrs. Garcia 81-year-old female has been seen and evaluated the patient bedside this morning. She is laying in bed resting and in no acute distress . She is in no acute distress, resting comfortably. She slept through my examination, opening her eyes but without verbal response. - Constitutional Vitals: Temp Pulse Resp BP Pulse Ox 97.6 F 97 16 129/64 99 09/23/16 07:00 09/23/16 07:00 09/23/16 07:00 09/23/16 07:00 09/23/16 07:00 General appearance: Present: cachectic, cooperative, A&O X 2, no acute distress , answers questions appropriately - Head Head exam: Present: atraumatic, normocephalic - Eye Eye exam: Present: PERRL, conjuntiva pink, sclera anicteric Pupils: Present: PERRL - ENT ENT exam: Present: mucous membranes moist - Neck Neck exam general surgery: Present: supple, trachea midline. Absent: lymphadenopathy - Respiratory Respiratory exam: Present: CTAB. Absent: accessory muscle use, rales, rhonchi, wheezes - Cardiovascular Cardiovascular exam: Present: RRR, +S1, +S2. Absent: diastolic murmur, gallop, rubs, systolic murmur - GI/Abdominal GI/Abdominal exam: Present: normal bowel sounds, soft, no peritoneal signs. Absent: distended, tenderness - Extremities Exam Extremities exam: Present: warm, radial pulses palpable and symetrical. Absent : calf tenderness, cyanotic, pedal edema - Neurological Exam Neurological exam: Present: alert, oriented X3, no focal deficits. Absent: pronater drift, facial droop, speech deficit - Psychiatric Psychiatric exam: Present: normal affect, normal mood Internal Medicine: Result - Labs CBC & Chem 7: 09/23/16 03:45 09/23/16 03:45 Labs: Short CBC 09/23/16 Range/Units 03:45 WBC 7.4 (4.3-11.1) K/mcL Hgb 8.7 L (11.5-15.4) g/dL Hct 26.7 L (35.3-44.9) % Plt Count 412 H (140-400) K/mcL Neutrophils # 4.0 (1.6-8.9) K/mcL BMP 09/23/16 03:45 Sodium 133 L Potassium 3.7 Chloride 100 Carbon Dioxide 28 BUN 22 H Creatinine 1.03 Glucose 94 Calcium 8.6 Liver Function 09/23/16 Range/Units 03:45 Total Bilirubin 0.6 (0.2-1.2) mg/dL AST 25 (5-34) Units/L ALT 21 (0-55) Units/L Alkaline Phosphatase 77 (38-126) Units/L Albumin 2.7 L (3.5-5.0) g/dL - ABG Interpretation ABG results: ABG ABG pH 7.49 pH Units (7.32-7.45) H 09/17/16 07:48 ABG pCO2 32 mmHg (35-45) L 09/17/16 07:48 ABG pO2 113 mmHg (85-104) H 09/17/16 07:48 ABG O2 Saturation 99 % (95-98) H 09/17/16 07:48 PT/INR, D-dimer PT 25.5 Seconds (9.4-12.1) H 09/22/16 06:08 - VTE Reasons for not Prescribing Prophylaxis: Not indicated-Anticoagulated or INR therapeutic Documentation of Mechanical Device: Intermittent pneumatic compression device Consult Discharge Plan - Plan Referrals: Madeline Ballard MD [Primary Care Provider] - <Aleks Posadas - Last Filed: 09/23/16 14:19> Date of Encounter: 09/23/16 - Constitutional Vitals: Temp Pulse Resp BP Pulse Ox 97.3 F L 88 18 161/84 96 09/23/16 11:23 09/23/16 11:23 09/23/16 11:23 09/23/16 11:23 09/23/16 11:23 Internal Medicine: Result - Labs CBC & Chem 7: 09/23/16 03:45 09/23/16 03:45 Labs: Short CBC 09/23/16 Range/Units 03:45 WBC 7.4 (4.3-11.1) K/mcL Hgb 8.7 L (11.5-15.4) g/dL Hct 26.7 L (35.3-44.9) % Plt Count 412 H (140-400) K/mcL Neutrophils # 4.0 (1.6-8.9) K/mcL BMP 09/23/16 03:45 Sodium 133 L Potassium 3.7 Chloride 100 Carbon Dioxide 28 BUN 22 H Creatinine 1.03 Glucose 94 Calcium 8.6 Liver Function 09/23/16 Range/Units 03:45 Total Bilirubin 0.6 (0.2-1.2) mg/dL AST 25 (5-34) Units/L ALT 21 (0-55) Units/L Alkaline Phosphatase 77 (38-126) Units/L Albumin 2.7 L (3.5-5.0) g/dL - ABG Interpretation ABG results: ABG ABG pH 7.49 pH Units (7.32-7.45) H 09/17/16 07:48 ABG pCO2 32 mmHg (35-45) L 09/17/16 07:48 ABG pO2 113 mmHg (85-104) H 09/17/16 07:48 ABG O2 Saturation 99 % (95-98) H 09/17/16 07:48 PT/INR, D-dimer PT 21.6 Seconds (9.4-12.1) H 09/23/16 11:10 - Attending Attestation I examined this patient and my medical decision-making was reviewed with the Resident Physician, Dr. Toro. I agree with the documented findings, disposition and treatment plan as described except to the extent set forth below. Patient appears somnolent, arousable. Heart exam reveals a regular S1-S2 with a systolic murmur. Abdomen is soft. Extremities with no edema. Lines and catheter: Vera catheter present draining clear yellow urine. Plan: Continue supportive care. PT OT. Plan for colonoscopy tomorrow with to evaluate for possible colonic mass. She does have worsening anemia likely secondary to blood loss today which will be evaluated by colonoscopy. We will monitor hemoglobin and hematocrit. She is coagulopathic secondary to warfarin therapy, currently INR is therapeutic. We will anticipate for FFP transfusion prior to colonoscopy tomorrow and hold warfarin tonight.
[2016-09-23] MEDS ORDERED: Polyethylene Glycol 3350 255 GM POWDER PO ONE (11:07)
[2016-09-23 11:21] LABS: Prothrombin Time 21.6 Seconds (9.4-12.1)
[2016-09-23] MEDS ORDERED: *HR* Warfarin 3 MG TABLET PO ONE (18:00)
[2016-09-24 05:17] LABS: Basophils % 0.3 %; Eosinophils # 0.3 K/mcL (0.0-0.6); Eosinophils % 3.9 %; Hematocrit 28.5 % (35.3-44.9); Hemoglobin 9.2 g/dL (11.5-15.4); Immature Granulocytes % 1.5 % (0-4); Lymphocytes # 1.5 K/mcL (0.6-4.6); Lymphocytes % 20.2 %; Mean Corpuscular HGB Conc 32.3 g/dL (31.6-35.5); Mean Corpuscular Hemoglobin 27.8 pg (28.0-33.3); Mean Corpuscular Volume 86.1 fL (83.0-100.0); Monocytes # 0.9 K/mcL (0.0-1.3); Monocytes % 11.7 %; Neutrophils # 4.6 K/mcL (1.6-8.9); Platelet Count 435 K/mcL (140-400); Red Blood Count 3.31 M/mcL (3.82-4.97); Segmented Neutrophils % 62.4 %
[2016-09-24 05:23] LABS: INR 2.1; Prothrombin Time 23.1 Seconds (9.4-12.1)
[2016-09-24 05:30] LABS: BUN/Creatinine Ratio 21 (6-26); Blood Urea Nitrogen 18 mg/dL (7-20); Calcium 8.7 mg/dL (8.6-10.8); Carbon Dioxide 26 mEq/L (19-29); Chloride 104 mEq/L (98-109); Glucose 131 mg/dL (70-99); Osmolality,Calculated 288 (280-300); Sodium 137 mEq/L (136-145); eGFR For African Americans > 60 (> 60); eGFR For Non-African Americans > 60 (> 60)
[2016-09-24] MEDS: Insulin LISPRO 300 UNITS/3 ML VIAL SQ SCH ×4 (09:04→21:30)
[2016-09-24] MEDS: Folic Acid 1 MG TABLET PO SCH (09:05)
[2016-09-24] MEDS: Thiamine (B-1) 100 MG TABLET PO SCH (09:05)
[2016-09-24] MEDS: Vitamin B Complex/Vit C/Vit E 1 EACH TABLET PO SCH (09:05)
[2016-09-24] MEDS: amLODIPine 5 MG TABLET PO SCH (09:05)
[2016-09-24] MEDS: Aspirin 81 MG TAB.CHEW PO SCH (09:05)
[2016-09-24] MEDS ORDERED: *HR* Phytonadione 5 MG TABLET PO ONE (09:48)
[2016-09-24] MEDS ORDERED: *HR* Warfarin 2.5 MG TABLET PO SCH (18:00)
--- NOTE | 2016-09-24 18:41 | Internal Med Progress Note ---
Date of Encounter: 09/24/16 Time of Encounter: 12:00 - Assessment and plan (1) Atrial fibrillation Current Visit: Yes Status: Chronic Assessment and plan: Heart rate irregularly irregular with controlled rates. Patient on warfarin therapy 2.5 mg by mouth daily at home. - Patient continued on warfarin therapy with therapeutic INR. - Continue cardiac monitoring - Continue Coreg 12.5 mg by mouth twice a day Qualifiers: Atrial fibrillation type: paroxysmal Qualified Code(s): I48.0 - Paroxysmal atrial fibrillation (2) Frail elderly Current Visit: Yes Status: Acute Assessment and plan: Patient currently decompensated after recent illness and intubation. Patient will require ECF/SNF post discharge. (3) Acute respiratory failure with hypoxia Current Visit: Yes Status: Acute Assessment and plan: Patient admitted with acute hypoxic respiratory failure secondary to aspiration versus pneumonitis. She was intubated in the ICU transferred yesterday evening to the general medical floor after stabilization. She was admitted on 2016 and intubated the same day. Extubated on 09/20/2016. - Oxygen saturations are 100% on 2 L nasal cannula - Lung examination is clear to auscultation all lung brennan Plan: - Continue breathing treatments when necessary - Patient to use bedside spirometer - Continue working with physical therapy - Good candidate for discharge to ECF for SNF (4) Aspiration pneumonia due to food (regurgitated) Current Visit: Yes Status: Acute Assessment and plan: Completed a course of IV antibiotics. Aspiration precautions. Avoid sedative medications. Passsed swallow study Qualifiers: Laterality: unspecified laterality Lung location: unspecified part of lung Qualified Code(s): J69.0 - Pneumonitis due to inhalation of food and vomit (5) Colonic mass Current Visit: Yes Status: Acute Assessment and plan: Colonic mass visualized on CT of the abdomen and pelvis. Gastroenterology is currently involved. Patient denies any blood per rectum or discomfort with bowel movements. - Patient will get colonoscopy tomorrow. In anticipation of colonoscopy she will have FFP transfusion tonight. Bowel prep to be done tonight. (6) HTN (hypertension) Current Visit: Yes Status: Acute Assessment and plan: She has a known history of hypertension. Systolic blood pressure 165 this morning - Continue Coreg 12.5 mg by mouth twice a day - Restart amlodipine home dose. Qualifiers: Qualified Code(s): I10 - Essential (primary) hypertension (7) Hypothyroidism Current Visit: Yes Status: Acute Assessment and plan: Continue home dose of levothyroxine 100 g daily Qualifiers: Qualified Code(s): E03.9 - Hypothyroidism, unspecified (8) Type 2 diabetes mellitus Current Visit: Yes Status: Acute Assessment and plan: Patient is a known type II diabetic on glipizide at home. Glucoses are currently controlled Plan: Continue before meals at bedtime glucose checks Continue low-dose insulin sliding scale adjustments as necessary. Qualifiers: Diabetes mellitus complication status: without complication Qualified Code( s): E11.9 - Type 2 diabetes mellitus without complications - Subjective Interval history: Patient reports being generally weak. Denies abdominal pain nausea vomiting. History is limited by mild dementia. - Constitutional Vitals: Temp Pulse Resp BP Pulse Ox 98.4 F 78 14 129/73 98 09/24/16 14:21 09/24/16 14:21 09/24/16 14:21 09/24/16 14:21 09/24/16 14:21 General appearance: Present: cachectic, cooperative, A&O X 2, no acute distress , answers questions appropriately - Eye Eye exam: Present: PERRL, conjuntiva pink, sclera anicteric Pupils: Present: PERRL - Respiratory Respiratory exam: Present: CTAB. Absent: accessory muscle use, rales, rhonchi, wheezes - Cardiovascular Cardiovascular exam: Present: irregular rhythm, +S1, +S2. Absent: diastolic murmur, gallop, rubs, systolic murmur - GI/Abdominal GI/Abdominal exam: Present: normal bowel sounds, soft, no peritoneal signs. Absent: distended, tenderness - Extremities Exam Extremities exam: Present: warm, radial pulses palpable and symetrical. Absent : calf tenderness, cyanotic, pedal edema - Skin Skin exam: Present: dry, intact Internal Medicine: Result - Labs CBC & Chem 7: 09/24/16 05:10 09/24/16 05:10 Labs: Short CBC 09/24/16 Range/Units 05:10 WBC 7.4 (4.3-11.1) K/mcL Hgb 9.2 L (11.5-15.4) g/dL Hct 28.5 L (35.3-44.9) % Plt Count 435 H (140-400) K/mcL Neutrophils # 4.6 (1.6-8.9) K/mcL BMP 09/24/16 05:10 Sodium 137 Potassium 4.0 Chloride 104 Carbon Dioxide 26 BUN 18 Creatinine 0.85 Glucose 131 H Calcium 8.7 - ABG Interpretation ABG results: ABG ABG pH 7.49 pH Units (7.32-7.45) H 09/17/16 07:48 ABG pCO2 32 mmHg (35-45) L 09/17/16 07:48 ABG pO2 113 mmHg (85-104) H 09/17/16 07:48 ABG O2 Saturation 99 % (95-98) H 09/17/16 07:48 PT/INR, D-dimer PT 23.1 Seconds (9.4-12.1) H 09/24/16 05:10 - VTE Reasons for not Prescribing Prophylaxis: Not indicated-Anticoagulated or INR therapeutic Documentation of Mechanical Device: Intermittent pneumatic compression device Consult Discharge Plan - Plan Referrals: Madeline Ballard MD [Primary Care Provider] -
[2016-09-24] MEDS ORDERED: Polyethylene Glycol 3350 255 GM POWDER PO ONE (19:00)
[2016-09-25] MEDS ORDERED: 0.9 % Sodium Chloride 250 ML ONE ×2 (01:25→04:37)
[2016-09-25 04:39] LABS: Basophils % 0.4 %; Eosinophils # 0.2 K/mcL (0.0-0.6); Immature Granulocytes % 1.4 % (0-4); Lymphocytes # 1.4 K/mcL (0.6-4.6); Mean Corpuscular Volume 87.4 fL (83.0-100.0); Monocytes # 0.6 K/mcL (0.0-1.3); Monocytes % 10.9 %; Neutrophils # 3.4 K/mcL (1.6-8.9); Platelet Count 379 K/mcL (140-400); Red Blood Count 2.86 M/mcL (3.82-4.97); Red Cell Distribution Width 14.1 % (11.5-14.5); Segmented Neutrophils % 60.3 %
[2016-09-25 04:44] LABS: INR 1.8; Prothrombin Time 19.3 Seconds (9.4-12.1)
[2016-09-25 04:49] LABS: BUN/Creatinine Ratio 14 (6-26); Blood Urea Nitrogen 11 mg/dL (7-20); Calcium 8.8 mg/dL (8.6-10.8); Carbon Dioxide 29 mEq/L (19-29); Chloride 102 mEq/L (98-109); Glucose 125 mg/dL (70-99); Osmolality,Calculated 281 (280-300); Sodium 135 mEq/L (136-145); eGFR For African Americans > 60 (> 60); eGFR For Non-African Americans > 60 (> 60)
[2016-09-25] MEDS: Insulin LISPRO 300 UNITS/3 ML VIAL SQ SCH ×4 (07:37→22:01)
[2016-09-25] MEDS: amLODIPine 5 MG TABLET PO SCH (07:38)
[2016-09-25] MEDS: Vitamin B Complex/Vit C/Vit E 1 EACH TABLET PO SCH (07:38)
[2016-09-25] MEDS: Thiamine (B-1) 100 MG TABLET PO SCH (07:38)
[2016-09-25] MEDS: Aspirin 81 MG TAB.CHEW PO SCH (07:38)
[2016-09-25] MEDS: Folic Acid 1 MG TABLET PO SCH (07:39)
--- NOTE | 2016-09-25 12:10 | Internal Med Progress Note ---
Date of Encounter: 09/25/16 Time of Encounter: 12:08 - Assessment and plan (1) CVA (cerebral vascular accident) Current Visit: Yes Status: Acute Assessment and plan: recent CVA with residual expressive aphasia consider starting heparin drip to bridge as her INR is not therapeutic now Qualifiers: CVA mechanism: unspecified Qualified Code(s): I63.9 - Cerebral infarction, unspecified (2) Atrial fibrillation Current Visit: Yes Status: Chronic Assessment and plan: Heart rate irregularly irregular with controlled rates. Patient on warfarin therapy 2.5 mg by mouth daily at home. - Patient continued on warfarin therapy with therapeutic INR. - Continue cardiac monitoring - Continue Coreg 12.5 mg by mouth twice a day was given FFP and Vit K for colonoscopy Qualifiers: Atrial fibrillation type: paroxysmal Qualified Code(s): I48.0 - Paroxysmal atrial fibrillation (3) Hyponatremia with decreased serum osmolality Current Visit: Yes Status: Acute (4) Acute respiratory failure with hypoxia Current Visit: Yes Status: Acute Assessment and plan: Patient admitted with acute hypoxic respiratory failure secondary to aspiration versus pneumonitis. She was intubated in the ICU She was admitted on 09/15/2016 and intubated the same day. Extubated on 2016. - Oxygen saturations are 100% on 2 L nasal cannula - Lung examination is clear to auscultation all lung brennan No antibiotics given - Continue breathing treatments when necessary - Patient to use bedside spirometer - Continue working with physical therapy - Good candidate for discharge to [facility] for SNF (5) Colonic mass Current Visit: Yes Status: Acute Assessment and plan: Colonic mass visualized on CT of the abdomen and pelvis. Gastroenterology is currently involved. Patient denies any blood per rectum or discomfort with bowel movements. - Patient will get colonoscopy today. FFP and vit k given Bowel prep (6) HTN (hypertension) Current Visit: Yes Status: Acute Assessment and plan: She has a known history of hypertension. - Continue Coreg 12.5 mg by mouth twice a day - Restart amlodipine home dose. Qualifiers: Qualified Code(s): I10 - Essential (primary) hypertension (7) Congestive heart failure (CHF) Current Visit: Yes Status: Acute Assessment and plan: Patient has a known history of diastolic heart failure current echocardiogram demonstrates LVEF of 55-60% and mild concentric left ventricular hypertrophy, indeterminant diastolic function due to atrial fibrillation, normal right ventricular size and function, mild dilated left atrium, mild dilated right atrium, no evidence of intracardiac shunting with agitated saline, moderate calcified mitral valve annulus and so valvular apparatus. Mildly thickened mitral valve leaflets. There is restricted motion of the posterior mitral valve leaflet. Moderate severe mitral regurgitation. Mild aortic stenosis. [id number] aortic regurgitation. Moderate tricuspid regurgitation. Severe pulmonary hypertension. - Currently euvolemic - Continue aspirin, Coreg, simvastatin Qualifiers: Congestive heart failure type: diastolic Qualified Code(s): I50.30 - Unspecified diastolic (congestive) heart failure (8) Type 2 diabetes mellitus Current Visit: Yes Status: Acute Assessment and plan: Patient is a known type II diabetic on glipizide at home. Glucoses are currently controlled Plan: Continue before meals at bedtime glucose checks Continue low-dose insulin sliding scale adjustments as necessary. Qualifiers: Diabetes mellitus complication status: without complication Qualified Code( s): E11.9 - Type 2 diabetes mellitus without complications - Subjective Interval history: denies CP , mildly SOB, still having speech difficulties, no rectal bleed, feels weak - Constitutional Vitals: Temp Pulse Resp BP Pulse Ox 97.8 F 90 18 124/56 99 09/25/16 09:18 09/25/16 09:18 09/25/16 09:18 09/25/16 09:18 09/25/16 08:46 General appearance: Present: cachectic, cooperative, A&O X 2, no acute distress , answers questions appropriately - Head Head exam: Present: atraumatic, normocephalic - Eye Eye exam: Present: PERRL, conjuntiva pink, sclera anicteric Pupils: Present: PERRL - Neck Neck exam general surgery: Present: supple, trachea midline. Absent: lymphadenopathy - Respiratory Respiratory exam: Present: CTAB. Absent: accessory muscle use, rales, rhonchi, wheezes - Cardiovascular Cardiovascular exam: Present: RRR, +S1, +S2. Absent: diastolic murmur, gallop, rubs, systolic murmur - GI/Abdominal GI/Abdominal exam: Present: normal bowel sounds, soft, no peritoneal signs. Absent: distended, tenderness - Extremities Exam Extremities exam: Present: warm, radial pulses palpable and symetrical. Absent : calf tenderness, cyanotic, pedal edema - Neurological Exam Neurological exam: Present: CN II-XII intact, no focal deficits. Absent: oriented X3, pronater drift, facial droop, speech deficit - Skin Skin exam: Present: dry, intact Internal Medicine: Result - Labs CBC & Chem 7: 09/25/16 04:23 09/25/16 04:23 Labs: Short CBC 09/25/16 Range/Units 04:23 WBC 5.6 (4.3-11.1) K/mcL Hgb 8.0 L (11.5-15.4) g/dL Hct 25.0 L (35.3-44.9) % Plt Count 379 (140-400) K/mcL Neutrophils # 3.4 (1.6-8.9) K/mcL BMP 09/25/16 04:23 Sodium 135 L Potassium 4.0 Chloride 102 Carbon Dioxide 29 BUN 11 Creatinine 0.80 Glucose 125 H Calcium 8.8 - ABG Interpretation ABG results: ABG ABG pH 7.49 pH Units (7.32-7.45) H 09/17/16 07:48 ABG pCO2 32 mmHg (35-45) L 09/17/16 07:48 ABG pO2 113 mmHg (85-104) H 09/17/16 07:48 ABG O2 Saturation 99 % (95-98) H 09/17/16 07:48 PT/INR, D-dimer PT 19.3 Seconds (9.4-12.1) H 09/25/16 04:23 - VTE Reasons for not Prescribing Prophylaxis: Not indicated-Anticoagulated or INR therapeutic Documentation of Mechanical Device: Intermittent pneumatic compression device Consult Discharge Plan - Plan Referrals: Madeline Ballard MD [Primary Care Provider] -
--- NOTE | 2016-09-25 13:14 | Anesthesia Evaluation PreOp ---
Date of Encounter: 09/25/16 Time of Encounter: 13:00 - Past History Planned Operation: colonoscopy Cardiac History: CHF, HTN, Hyperlipidemia (Patient has known diastolic heart failure. EF currently 55-60% with mild LVH. She has moderately severe mitral stenosis, mild aortic stenosis and severe pulmonary hypertension. She has long standing chronic afib.), Arrhythmia Pulmonary History: Other (Admitted on 09/15 in hypoxic pulmonary failure due to possible aspiration. she has been extubated since 09/20 and has been maintained on 2L O2.) Other Medical History: Diabetes Type II (Patient has a colonic mass and anemia.) , Other (Very frail, poor historian.) Anesthesia History: No Prior Anesthetic Complications, Past Anesthesia Alcohol Use: none, unknown Drug use: none, unknown Medications and Allergies Aspirin [Ecotrin] 325 mg PO DAILY 09/01/16 [History] Bisacodyl [Woman's Laxative] 5 mg PO DAILY 09/01/16 [History] Carvedilol [Coreg] 6.25 mg PO BID 09/01/16 [History] GlipiZIDE [Glipizide] 10 mg PO DAILY 09/01/16 [History] Insulin Glargine [Lantus] 32 units SQ DAILY 09/01/16 [History] Pravastatin Sodium [Pravachol] 40 mg PO HS 09/01/16 [History] Warfarin [Coumadin] 2.5 mg PO DAILY 09/01/16 [History] Amlodipine Besylate [Amlodipine Besylate] 10 mg PO DAILY 09/15/16 [History] Furosemide [Lasix] 20 mg PO AD PRN 09/15/16 [History] Insulin ASPART [Novolog Flexpen] 2 - 8 unit SQ TIDWM 09/15/16 [History] Levothyroxine [Synthroid] 100 mcg PO DAILY 09/15/16 [History] Allergies Penicillins Allergy (Verified 09/15/16 12:22) Rash - Meds/Allergy Pre-op Review Medications Reviewed: Yes Allergies Reviewed: Yes Beta Blockers on Current Med List: Yes (last dose last night) Anesthesia Results - Labs 09/25/16 04:23 09/25/16 04:23 - Imaging EKG: other (telemetry tracing, a.fib) Anesthesia Exam Selected Entries 09/25/16 13:00 Temperature 97.9 F Pulse Rate 88 Respiratory Rate 16 Blood Pressure 122/64 O2 Sat by Pulse Oximetry 98 Weight: 62 kg NPO (# of Hours): over 8 hours - HEENT Pupil (Motor): Pupils equal Mallampati: II Teeth: Prosthesis Oral Opening: Greater than 3 - Cardiac Rhythm: Irregular Murmur: Systolic - Pulmonary Breath Sounds: bilateral Clear Anesthesia Assess/Plan ASA Score: 4 (cooperative but generally confused. Poor historian) Anesthetic Plan: MAC Monitoring Plan: Standard Monitors Recovery Plan: Other
[2016-09-25] MEDS ORDERED: *HR* Metoprolol 5 MG/5 ML VIAL IVP SCH (16:15)
[2016-09-25] MEDS ORDERED: *HR* Metoprolol 5 MG/5 ML VIAL IVP PRN (17:43)
[2016-09-25] MEDS: *HR* Enoxaparin 60 MG/0.6 ML SYRINGE SQ SCH (17:50)
[2016-09-25] MEDS ORDERED: *HR* Warfarin 2.5 MG TABLET PO SCH (18:00)
[2016-09-26 04:44] LABS: Hematocrit 25.5 % (35.3-44.9); Hemoglobin 8.2 g/dL (11.5-15.4); Mean Corpuscular HGB Conc 32.2 g/dL (31.6-35.5); Mean Corpuscular Hemoglobin 27.9 pg (28.0-33.3); Mean Corpuscular Volume 86.7 fL (83.0-100.0); Mean Platelet Volume 9.1 fL (9.4-12.4); Platelet Count 376 K/mcL (140-400); Red Blood Count 2.94 M/mcL (3.82-4.97); Red Cell Distribution Width 14.2 % (11.5-14.5)
[2016-09-26 04:50] LABS: INR 1.7; Prothrombin Time 18.9 Seconds (9.4-12.1)
[2016-09-26] MEDS: *HR* Enoxaparin 60 MG/0.6 ML SYRINGE SQ SCH (05:02)
[2016-09-26 06:53] VITALS: BP 136/76
--- NOTE | 2016-09-26 08:21 | Discharge Summary ---
Date of Encounter: 09/26/16 Time of Encounter: 08:19 - Discharge Diagnosis (1) Acute respiratory failure with hypoxia Priority: Primary Status: Acute Comments: Patient admitted with acute hypoxic respiratory failure secondary to aspiration pneumonitis. She was intubated in the ICU She was admitted on 09/15/2016 and intubated the same day. Extubated on 2016. - Oxygen saturations are 100% on 2 L nasal cannula - Lung examination is clear to auscultation all lung brennan No antibiotics [facility] (2) CVA (cerebral vascular accident) Priority: Secondary Status: Acute Comments: recent CVA with residual expressive aphasia use lovenox to bridge as her INR is not therapeutic now Qualifiers: CVA mechanism: unspecified Qualified Code(s): I63.9 - Cerebral infarction, unspecified (3) Atrial fibrillation Priority: Secondary Status: Chronic Comments: Coreg 12.5 mg by mouth twice a day Qualifiers: Atrial fibrillation type: paroxysmal Qualified Code(s): I48.0 - Paroxysmal atrial fibrillation (4) Hyponatremia with decreased serum osmolality Priority: Secondary Status: Acute (5) HTN (hypertension) Priority: Secondary Status: Acute Qualifiers: Qualified Code(s): I10 - Essential (primary) hypertension (6) Congestive heart failure (CHF) Priority: Secondary Status: Acute Qualifiers: Congestive heart failure type: diastolic Qualified Code(s): I50.30 - Unspecified diastolic (congestive) heart failure (7) Type 2 diabetes mellitus Priority: Secondary Status: Acute Qualifiers: Diabetes mellitus complication status: without complication Qualified Code( s): E11.9 - Type 2 diabetes mellitus without complications - Discharge Medications Prescriptions: OxyCODONE Immed Rel [Roxicodone 5 MG] 5 mg PO Q6HR PRN #20 tablet PRN Reason: Moderate Pain (4-6) Enoxaparin [Lovenox] 60 mg SQ Q12H #14 syringe Home Medications: Aspirin [Ecotrin] 325 mg PO DAILY 09/01/16 [History] Bisacodyl [Woman's Laxative] 5 mg PO DAILY 09/01/16 [History] Carvedilol [Coreg] 6.25 mg PO BID 09/01/16 [History] GlipiZIDE [Glipizide] 10 mg PO DAILY 09/01/16 [History] Insulin Glargine [Lantus] 32 units SQ DAILY 09/01/16 [History] Pravastatin Sodium [Pravachol] 40 mg PO HS 09/01/16 [History] Warfarin [Coumadin] 2.5 mg PO DAILY 09/01/16 [History] Amlodipine Besylate 10 mg PO DAILY 09/15/16 [History] Furosemide [Lasix] 20 mg PO AD PRN 09/15/16 [History] Insulin ASPART [Novolog Flexpen] 2 - 8 unit SQ TIDWM 09/15/16 [History] Levothyroxine [Synthroid] 100 mcg PO DAILY 09/15/16 [History] Enoxaparin [Lovenox] 60 mg SQ Q12H #14 syringe 09/26/16 [Rx] OxyCODONE Immed Rel [Roxicodone 5 MG] 5 mg PO Q6HR PRN #20 tablet 09/26/16 [Rx] Allergies/Adverse Reactions: Allergies Penicillins Allergy (Verified 09/15/16 12:22) Rash Date of admission: 09/16/16 08:30 Primary care physician: Madeline Ballard MD Consults: 09/14/16 23:48 Consult to Occupational Therapy [CONS] Routine Comment: Evaluate, develop and implement POC Consult to Physical Therapy [CONS] Routine Comment: Evaluate, develop and implement POC 09/15/16 05:51 Consult to Fitness Director [CONS] Routine Comment: 09/15/16 15:24 Consult to Critical Care [CONS] Routine Consulting Provider: Pulm Crit Care & Sleep Mandie Reason for Consult: REspiratory failure. Call Completed: Yes 09/17/16 11:11 Consult to Nutrition [CONS] Stat Comment: Consulting Provider: NUTRITION Reason for Dietary Consult: TF Start and Manage 09/17/16 15:23 Consult to Nephrology [CONS] Routine Consulting Provider: Kidney Mandie/BILLY/[place] Reason for Consult: hyponatremia Call Completed: Yes 09/19/16 12:56 Consult to Speech Therapy [CONS] Routine Comment: Evaluate, develop and implement POC Reason for Consult: extubated, previous aspiration Call Completed: No 09/19/16 14:43 Consult to Gastroenterology [CONS] Routine Consulting Provider: Gastro[facility] [place] Reason for Consult: colonic mass Call Completed: Yes 09/21/16 15:13 Consult to Event Marketing Specialist [CONS] Routine Reason for SW Consult: PT/OT recommending ECF/SNF - Patient Status Disposition: Transfer SNF Condition: Fair Overall status at discharge: patient is progressing back to baseline - Discharge Instructions Follow Up With: Madeline Ballard MD [Primary Care Provider] - Additional Instructions: Follow with primary care physician within 7 days. Use lovenox until INR is more than 2. Aspiration and fall precautions. Advanced soft diet with thin liquids - Diet and Activity Activity: increase activity as tolerated Diet: diabetic diet (advanced soft diet) Hospital course: Ms. 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 The patient is received as a hospital transfer from [facility]-inpatient. Admitted to [facility]-inpatient on for inpatient rehabilitation status post recent ischemic cerebrovascular accident. The patient carries a long history of multiple, old bi-hemispheric infarcts with encephalomalacia. The patient seemed to progress slowly predictably during her inpatient stay and tell the last 2-3 days prior to her transfer she became less anticipatory in the rehabilitation program. Seemed more easily fatigued and weak. Seemed more hyper irritable. Inattentive. Loss of appetite. Confusion/delirium. Pending of her most recent laboratory prior to transfer it appears that on 09/02/2016 a basic metabolic panel noted a sodium of 137 and an osmolality calculated at 283. Admission comprehensive metabolic panel here finds now a sodium of 121 and a osmolality calculated 261. Additional electrolyte deficiencies and vitamin deficiencies are also noted with the intake screening laboratory with this current admission. Developed acute respiratory failure due to aspiration pneumonitis and was intubated. No antibiotic were given. The patient recovered and went to the floor. CT aof the abdomen was worrisome for a possible colonic mass which was ruled out by colonoscopy. The patient's INR is not therapeutic and will be discharged on Lovenox until INR is more than 2. COntinue ASA. Colonoscopy shower diverticulosis. - Time Spent with Patient Total time spent providing and/or coordinating discharge services: Greater than 30 minutes (40 min) - Constitutional Vitals: Temp Pulse Resp BP Pulse Ox 98.5 F 81 18 136/76 98 09/26/16 06:46 09/26/16 06:46 09/26/16 06:46 09/26/16 06:46 09/26/16 06:46 General appearance: Present: cachectic, cooperative, A&O X 2, no acute distress , answers questions appropriately - Head Head exam: Present: atraumatic, normocephalic - Eye Eye exam: Present: PERRL, conjuntiva pink, sclera anicteric Pupils: Present: PERRL - Neck Neck exam general surgery: Present: supple, trachea midline. Absent: lymphadenopathy - Respiratory Respiratory exam: Present: CTAB. Absent: accessory muscle use, rales, rhonchi, wheezes - Cardiovascular Cardiovascular exam: Present: RRR, +S1, +S2. Absent: diastolic murmur, gallop, rubs, systolic murmur - GI/Abdominal GI/Abdominal exam: Present: normal bowel sounds, soft, no peritoneal signs. Absent: distended, tenderness - Extremities Exam Extremities exam: Present: warm, radial pulses palpable and symetrical. Absent : calf tenderness, cyanotic, pedal edema - Neurological Exam Neurological exam: Present: CN II-XII intact, no focal deficits. Absent: oriented X3, pronater drift, facial droop, speech deficit - Skin Skin exam: Present: dry, intact - VTE Reasons for not Prescribing Prophylaxis: Not indicated-Anticoagulated or INR therapeutic Documentation of Mechanical Device: Intermittent pneumatic compression device
--- NOTE | 2016-09-26 08:35 | Physician Discharge Referral ---
ExtendedCare Referral Info Provider in Charge after Transfer: PCP Institutional Level of Care: Skilled - Diagnosis (1) Acute respiratory failure with hypoxia Status: Acute (2) CVA (cerebral vascular accident) Status: Acute (3) Atrial fibrillation Status: Chronic (4) Hyponatremia with decreased serum osmolality Status: Acute (5) HTN (hypertension) Status: Acute (6) Congestive heart failure (CHF) Status: Acute (7) Type 2 diabetes mellitus Status: Acute - Transfer Medications Prescriptions: OxyCODONE Immed Rel [Roxicodone 5 MG] 5 mg PO Q6HR PRN #20 tablet PRN Reason: Moderate Pain (4-6) Enoxaparin [Lovenox] 60 mg SQ Q12H #14 syringe Home Medications: Aspirin [Ecotrin] 325 mg PO DAILY 09/01/16 [History] Bisacodyl [Woman's Laxative] 5 mg PO DAILY 09/01/16 [History] Carvedilol [Coreg] 6.25 mg PO BID 09/01/16 [History] GlipiZIDE [Glipizide] 10 mg PO DAILY 09/01/16 [History] Insulin Glargine [Lantus] 32 units SQ DAILY 09/01/16 [History] Pravastatin Sodium [Pravachol] 40 mg PO HS 09/01/16 [History] Warfarin [Coumadin] 2.5 mg PO DAILY 09/01/16 [History] Amlodipine Besylate 10 mg PO DAILY 09/15/16 [History] Furosemide [Lasix] 20 mg PO AD PRN 09/15/16 [History] Insulin ASPART [Novolog Flexpen] 2 - 8 unit SQ TIDWM 09/15/16 [History] Levothyroxine [Synthroid] 100 mcg PO DAILY 09/15/16 [History] Enoxaparin [Lovenox] 60 mg SQ Q12H #14 syringe 09/26/16 [Rx] OxyCODONE Immed Rel [Roxicodone 5 MG] 5 mg PO Q6HR PRN #20 tablet 09/26/16 [Rx] Allergies/Adverse Reactions: Allergies Penicillins Allergy (Verified 09/15/16 12:22) Rash - Respiratory Orders Smoking Cessation: Smoking cessation has been advised. For more information, call the [place] Tobacco Quit Line at 2-260-UWTK-NOW. - Advance Directives Code Status: Full Code - Treatments List/Other: Follow with primary care physician within 7 days. Use lovenox until INR is more than 2. Aspiration and fall precautions. Advanced soft diet with thin liquids CERTIFICATION: I certify that the transfer of the above named patient to an Extended Care Facility is necessary for the continuing treatment of the diagnosis listed. The above information is true and accurate reflection of patient's current condition. Confidential - Redisclosure prohibited without a patient's written consent.
[2016-09-26] MEDS: Insulin LISPRO 300 UNITS/3 ML VIAL SQ SCH ×2 (08:40→11:58)
[2016-09-26] MEDS: amLODIPine 5 MG TABLET PO SCH (08:44)
[2016-09-26] MEDS: Thiamine (B-1) 100 MG TABLET PO SCH (08:44)
[2016-09-26] MEDS: Vitamin B Complex/Vit C/Vit E 1 EACH TABLET PO SCH (08:44)
[2016-09-26] MEDS: Folic Acid 1 MG TABLET PO SCH (08:45)
[2016-09-26] MEDS: Aspirin 81 MG TAB.CHEW PO SCH (08:45)
[2016-09-26 13:13] LABS: BUN/Creatinine Ratio 14 (6-26); Blood Urea Nitrogen 11 mg/dL (7-20); Calcium 8.8 mg/dL (8.6-10.8); Carbon Dioxide 29 mEq/L (19-29); Chloride 102 mEq/L (98-109); Glucose 138 mg/dL (70-99); Osmolality,Calculated 286 (280-300); Potassium 4.3 mEq/L (3.5-4.5); Sodium 137 mEq/L (136-145); eGFR For African Americans > 60 (> 60); eGFR For Non-African Americans > 60 (> 60)
[2016-09-26] MEDS ORDERED: *HR* Propofol 200 MG/20 ML VIAL IVP ONE (14:16)
--- NOTE | 2016-09-26 14:27 | Electrocardiograph Report ---
[address] [address] Test Date: 2016-09-14 Pat Name: [facility] [place] Department: 2001 Room: 3A22 Gender: F Tank Driver: : 1935 Requested By: Mele Monahan Order Number: [id number] Reading MD: Tabatha Rahman Measurements Intervals [place] Rate: 116 P: IA: 0 QRS: 37 QRSD: 84 T: 203 QT: 336 QTc: 405 Interpretive Statements ATRIAL FLUTTER/TACHYCARDIA WITH RAPID VENTRICULAR RESPONSE WITH ABERRANT CONDUCTION OR VENTRICULAR PREMATURE COMPLEXES LEFT VENTRICULAR HYPERTROPHY AND ST-T CHANGE [VOLTAGE CRITERIA PLUS ST/T ABNORMALITY] Electronically Signed On 09-26-2016 14:25:49 EDT by Tabatha Rahman
--- NOTE | 2016-09-26 15:18 | Electrocardiograph Report ---
[address] [place], [place] [address] Test Date: 2016-09-25 Pat Name: [facility] Department: 115 Room: 3A22 Gender: F Inward Toll Operator: : 1935 Requested By: Mele Monahan Order Number: [id number] Reading MD: Tabatha Rahman Measurements Intervals [place] Rate: 105 P: IN: 0 QRS: 34 QRSD: 81 T: 154 QT: 327 QTc: 388 Interpretive Statements ATRIAL FIBRILLATION WITH RAPID VENTRICULAR RESPONSE ST DEVIATION AND MODERATE T-WAVE ABNORMALITY, CONSIDER LATERAL ISCHEMIA Electronically Signed On 09-26-2016 15:16:53 EDT by Tabatha Rahman
[2016-09-26] MEDS ORDERED: *HR* Warfarin 5 MG TABLET PO ONE (18:00)
== END 2016-09-26 14:17 | DRG 208 ==
LOC: 2NENU → ICNU 09-15 14:57 → SUATTDRO 09-16 08:30 → 3ANU 09-21 14:35
PROVIDERS: ADMIT Internal Medicine; ATTEND Internal Medicine